=== PATIENT | female | born 2000 | race Caucasian/White ===

== ENCOUNTER 2025-01-12 17:51 | Day surgery (SDC) | payer OTHER, SELFPAY ==
[2025-01-12 17:53] VITALS: BP 149/99; PULSE 88; RESP 18; TEMP 36.7; O2SAT 98; BMI 22.0
--- NOTE | 2025-01-12 19:32 | US_ITS ---
PROCEDURE: TRANSVAGINAL W/PREG US 01/12/2025 REASON FOR EXAM: PELVIC PAIN TECHNIQUE: Transvaginal pelvic ultrasound Transvaginal FINDINGS: Measurements: Uterus: 7.2 x 5.7 x 3.5 with a volume of mL Endometrial Thickness: 14 mm Right Ovary: 2.5 x 1.7 x 1.5 with a volume of mL. Left Ovary: 2.5 x 1.8 x 1.8 with a volume of mL. . Uterus: Anteverted. Normal contour and myometrial echotexture. Endometrium: Normal echotexture. Right ovary: Normal size and echotexture. Left ovary: Normal size and echotexture. 1 cm isoechoic area within the left ovary of uncertain significance. Other adnexal findings: None. Cul-de-sac: Moderate amount of free fluid with some internal echoes No tenderness. Number of Gestational Sacs: None Gestational Sac Shape: Normal Number of Fetuses: None US/Transvaginal w/Preg US IMPRESSION: No intrauterine gestational sac. Differential diagnosis includes an early intr auterine , early ectopic , or a missed . Moderate amount of free fluid with some internal echoes and hemorrhagic or puru lent fluid can not be excluded. Dr. Wolfe was notified on 01/12/2025 at 21:00 Reading Location: [id number]
[2025-01-12 20:00] LABS: Absolute Lymphocyte Count 2.66 X10^3/uL (0.83-4.51); Absolute Neutrophil Count 5.8 X10^3/uL (2.0-7.7); Basophil# 0.07 X10^3/uL; Basophil% 0.8 % (0-1); Eosinophil# 0.09 X10^3/uL; Hematocrit 37.7 % (37-47); Hemoglobin 13.5 g/dL (12.0-15.0); Lymphocyte # 2.66 X10^3/ul (0.83-4.51); Lymphocyte % 28.5 % (19-41); Mean Corp Hgb Conc 35.8 g/dL (32-36); Mean Corpuscular Volume 86.5 fL (81-99); Mean Platelet Vol. 9.3 fl (6.2-12.0); Monocyte# 0.71 X10^3/uL; Monocyte% 7.6 % (0-10); NRBC Flagged by Analyzer 0 % (0-5); Neutrophil # 5.75 X10^3/uL (2.7-7.7); Neutrophil % 61.7 % (47-70); Platelet Count 242 K/mm3 (150-450); RBC Distribution Width CV 13.2 % (11.6-14.6); RBC Distribution Width SD 41.7 fl (35.1-43.9); Red Blood Count 4.36 M/mm3 (4.2-5.4); White Blood Count 9.3 K/mm3 (4.4-11.0)
[2025-01-12] MEDS: 0.9% Normal Saline (1000mL) 1,000 ML 999 ML IV (20:02)
[2025-01-12 20:10] VITALS: BP 124/85; PULSE 101; RESP 18; O2SAT 100
[2025-01-12 20:18] LABS: Bacteria 0 SEEN /hpf (None Seen); Mucous, Urine 0 SEEN /hpf (<or=2+); White Blood Cells 0 SEEN /hpf (0-5)
--- NOTE | 2025-01-12 20:23 | ED.VIS.FEGU ---
HPI HPI - Female History of Present Illness Chief Complaint: Vag Bld, Preg Pain Pain: Positive for Pelvic Pain Onset: Days Context: Gradual Onset Timing: Continuous Quality: Positive for Cramping Location: RLQ, LLQ and Suprapubic Worsened by: - (Eating) Relieved by: - (Nothing) Bleeding Issue: Positive for Vaginal bleeding Context: Gradual Onset Timing: Continuous Current Severity: Mild Maximum Severity: Mild Associated Symptoms Associated Symptoms: Negative for Dysuria or Frequency Test: Positive P: 0 Narrative Narrative: Patient presents with vaginal bleeding that began at couple days ago. Patient states that his been less than a normal period for her. Patient states she had a positive test but has not followed up with any MEDICAL SOCIAL CONSULTANT yet. Patient states this is her first . Patient states she has lower abdominal cramping. Patient states this is worse with eating. The patient states nothing seems to help with it. Patient admits to some nausea but denies any vomiting. Patient denies any dysuria or frequency. PFSH PFSH Medical History no medical history no medical history Allergy/AdvReac Type Severity Reaction Status Date / Time No Known Allergies Allergy Verified 01/12/25 17:56 Surgical History no surgical history no surgical history Social History Smoking Status: Never smoker ROS ROS ED Constitutional Constitutional ED: Denies chills or fever(s) Eyes Eyes: Denies blurry vision or change in vision ENT ENT ED: Denies rhinorrhea or sore throat Cardiovascular Cardiovascular: Denies chest pain or palpitations Respiratory/Chest Respiratory/Chest: Denies cough or dyspnea Gastrointestinal Gastrointestinal: Reports abdominal pain and nausea; Denies vomiting Genitourinary Genitourinary ED: Denies dysuria or hematuria Musculoskeletal Musculoskeletal: Denies back pain or neck pain Integumentary Denies abscess or rash Neurologic Neurologic: Denies headache(s) or weakness Allergic/Immunologic Allergic/Immunologic ED: Denies mouth swelling or urticaria EXAM Physical Exam Const Vital Signs: 01/12/25 17:53 01/12/25 20:10 01/12/25 22:00 Temperature 98.0 F Temperature Source Oral Pulse Rate 88 101 H 97 Respiratory Rate 18 18 18 Blood Pressure 149/99 H 124/85 H 124/85 H Blood Pressure Mean 115 98 98 Pulse Ox 98 100 100 Oxygen Delivery Method Room Air Room Air Room Air Positive well nourished and well developed General Appearance ED: well developed and NAD HEENT Reports moist mucous membranes Neck supple and no JVD Resp normal respiratory effort and clear to auscultation bilaterally Cardio regular rate and regular rhythm GI soft to palpation and non-distended Palpation: tender LLQ, RLQ and suprapubic; Negative for guarding Neuro oriented x3, CN's II-XII intact bilaterally and no sensory deficits noted Sensorium / Orientation: alert Motor Exam: strength 5/5 throughout Psych mental status grossly normal MDM MDM MDM Narrative Medical decision making narrative: Differential diagnose includes ectopic , threatened miscarriage, incomplete miscarriage, and implantation bleeding. CBC will be obtained to assess for leukocytosis and anemia. Basic metabolic profile will be obtained to assess for electrolyte abnormality and renal function. Quantitative hCG will be obtained to assess for level. Urinalysis will be obtained to assess for urinary tract infection or hematuria. Blood type will be obtained to assess for blood type and Rh. Lab Data Attestation: I reviewed the patient's lab results. Lab results narrative: CBC was reviewed and was within normal limits. Basic metabolic profile was reviewed and was within normal limits. Quantitative hCG was reviewed and was 12/05/2002. Urinalysis was reviewed. There is no evidence of urinary tract infection or hematuria. Blood type was reviewed and was O+. Labs: Laboratory Results - last 24 hr 01/12/25 01/12/25 19:15 20:05 WBC 9.3 RBC 4.36 Hgb 13.5 Hct 37.7 MCV 86.5 MCH 31.0 MCHC 35.8 RDW Std Deviation 41.7 RDW Coeff of Meghna 13.2 Plt Count 242 MPV 9.3 Immature Gran % (Auto) 0.400 Neut % (Auto) 61.7 Lymph % (Auto) 28.5 [place] % (Auto) 7.6 Eos % (Auto) 1.0 Baso % (Auto) 0.8 Absolute Neuts (auto) 5.8 Absolute Lymphs (auto) 2.66 Nucleated RBC % 0 Sodium 136 Potassium 3.4 Chloride 102 Carbon Dioxide 21.3 Anion Gap 13 BUN 9 Creatinine 0.72 Estim Creat Clear Calc 98.81 Est GFR (MDRD) Non-Af 118 BUN/Creatinine Ratio 12.6 Glucose 90 Calcium 9.1 HCG, Quant 3703 H Urine Color Straw Urine Clarity Clear Urine pH 6.5 Ur Specific [place] 1.010 Urine Protein 15 H Urine Glucose (UA) Normal Urine Ketones 50 H Urine Occult Blood 250 H Urine Nitrite Negative Urine Bilirubin Negative Urine Urobilinogen Normal Ur Leukocyte Esterase Negative Urine RBC 0-5 SEEN Urine WBC 0 SEEN Ur Squamous Epith Cells 0-5 SEEN Urine Bacteria 0 SEEN Urine Mucus 0 SEEN Blood Type O POSITIVE Radiography Diagnostic Testing: Clinical Impression(s) from Imaging Studies Obstetrics Ultrasound 01/12/25 19:32 IMPRESSION: No intrauterine gestational sac. Differential diagnosis includes an early intrauterine , early ectopic , or a missed . Moderate amount of free fluid with some internal echoes and hemorrhagic or purulent fluid can not be excluded. Dr. Wolfe was notified on 01/12/2025 at 21:00 Reading Location: [facility] Pelvic ultrasound was obtained. There is no intrauterine gestational sac. There is moderate amount of free fluid with some internal echoes. Hemorrhagic or purulent fluid cannot be excluded. This was interpreted by the radiologist and was also independently reviewed by myself. Treatment and Re-Evaluation Narrative: Patient was given IV fluids. Patient was advised of her findings. Case was discussed with Dr. Page Roberto. She was in to evaluate the patient. She will take the patient to the operating room for ectopic . Patient understands and is agreeable with the plan. All questions were answered. Discharge Plan Triage Chief Complaint: Vag Bld, Preg ED Provider: Ray Rapp Dx/Rx/DC Orders Clinical Impression: Ectopic , Pelvic pain Primary Care Provider: Care Physician,No Primary Disposition Disposition: Acute Care Hospital [facility]
[2025-01-12 20:29] LABS: Anion Gap 13 (5-15); BUN 9 mg/dL (4-19); BUN/Creat Ratio 12.6 RATIO (10-20); Calcium,Total 9.1 mg/dL (7.6-11.0); Carbon Dioxide 21.3 mmol/L (21.0-32.0); Chloride 102 mmol/L (98-108); Creatinine, Serum 0.72 mg/dL (0.70-1.20); EST Glomerular Filtration Rate 118 (>60); Estimated Creatinine Clearance 98.81 ml/min (50-250); Glucose 90 mg/dL (70-99); Potassium 3.4 mmol/L (3.3-5.1); Sodium Level 136 mmol/L (133-145)
[2025-01-12 20:31] LABS: hCG Titer Quant., Serum 3703 mIU/mL (<9 non-preg)
[2025-01-12 20:49] LABS: Color, Urine Straw (Yellow); Glucose, Dipstick Normal (Normal); Ketone-Dipstick 50 mg/dl (Negative); Leukocyte Esterase-Dipstick Negative /ul (Negative); Nitrite-Dipstick Negative (Negative); Occult Blood-Urine 250 /ul (Negative); Protein-Dipstick 15 mg/dl (Negative); Urine Bilirubin Dipstick Negative (Negative); Urine Clarity Clear (Clear); Urine Urobilinogen Normal (Normal); Urine pH 6.5 (5.0 - 8.0)
[2025-01-12 21:16] LABS: Red Blood Cells-Urine 0-5 SEEN /hpf (0-5); Squamous Epithelial Cells - UA 0-5 SEEN /hpf (5-10)
[2025-01-12 22:00] VITALS: BP 124/85; PULSE 97; RESP 18; O2SAT 100
[2025-01-12 22:56] VITALS: BP 127/85; PULSE 110; RESP 18; TEMP 37.1; O2SAT 98; BMI 22.0
[2025-01-12 23:01] VITALS: BP 127/85; PULSE 110; RESP 18; TEMP 37.1; O2SAT 100
--- NOTE | 2025-01-12 23:14 | PCM.HP.OB ---
HPI - General HPI Narrative YESSICA SOLORZANO, is a 24 F who presents with vaginal bleeding for two weeks,nothing heavy but persistent. she then had new onset acute pelvic pain today, statred on the left and then caused burning across the whole lower abdomen. she is supposed to be 8 weeks along, quant of 3700 with no IUP seen, moerate amount of complex fluid in the cul de sac. she denies any passage of tissue. she has no history of pelvic infection. PFSH PFSH Medical History no medical history Allergy/AdvReac Type Severity Reaction Status Date / Time No Known Allergies Allergy Verified 01/12/25 17:56 Surgical History no surgical history Social History Smoking Status: Never smoker ROS Constitutional Constitutional: Reports systems reviewed and no addt'l complaints, except as documented; Denies as per HPI, change in weight, fatigue, fever(s), malaise, weakness or other Eyes Eyes: Reports systems reviewed and no addt'l complaints, except as documented; Denies as per HPI, change in vision or other ENT HEENT: Reports systems reviewed and no addt'l complaints, except as documented Respiratory/Chest Respiratory/Chest: Reports systems reviewed and no addt'l complaints, except as documented Gastrointestinal Gastrointestinal: Reports systems reviewed and no addt'l complaints, except as documented and as per HPI Genitourinary Genitourinary: Reports as per HPI Musculoskeletal Musculoskeletal: Reports systems reviewed and no addt'l complaints, except as documented Neurologic Neurologic: Reports systems reviewed and no addt'l complaints, except as documented Psychiatric Psychiatric: Reports systems reviewed and no addt'l complaints, except as documented Endocrine Endocrinology: Reports systems reviewed and no addt'l complaints, except as documented Hematologic/Lymphatic Hematologic/Lymphatic: Reports systems reviewed and no addt'l complaints, except as documented Vital Signs Vital Signs Vital Signs: 01/12/25 17:53 01/12/25 20:10 01/12/25 22:00 Temperature 98.0 F Temperature Source Oral Pulse Rate 88 101 H 97 Respiratory Rate 18 18 18 Blood Pressure 149/99 H 124/85 H 124/85 H Blood Pressure Mean 115 98 98 Blood Pressure Source Blood Pressure Position Blood Pressure Location Pulse Ox 98 100 100 Oxygen Delivery Method Room Air Room Air Room Air 01/12/25 22:56 01/12/25 23:01 Temperature 98.7 F 98.7 F Temperature Source Oral Pulse Rate 110 H 110 H Respiratory Rate 18 18 Blood Pressure 127/85 H 127/85 H Blood Pressure Mean 99 99 Blood Pressure Source Monitor Blood Pressure Position Semi-Fowlers Blood Pressure Location Right Arm Pulse Ox 98 100 Oxygen Delivery Method Room Air Weight Weight: 124 lb 8.979 oz Body Mass Index (BMI) 22.0 Physical Exam Const alert, oriented x3 and no apparent distress HEENT normocephalic Head and Scalp: atraumatic Eyes EOMs intact bilaterally and conjunctivae normal Neck full ROM, no lymphadenopathy, supple and thyroid normal General: trachea midline Lymph Lymphatic: no lymphadenopathy noted Resp normal respiratory effort, no retractions, no use of accessory muscles and clear to auscultation bilaterally Cardio regular rhythm GI normal to inspection, nondistended, normoactive bowel sounds, soft to palpation, non-distended and no masses Inspection: Negative for abdominal distention Back/Spine no CVA tenderness Extremity normal to inspection Skin no rashes or lesions noted Neuro moves all extremities and deep tendon reflexes 2+ bilaterally Psych mental status grossly normal Labs Labs Labs: Blood Type O POSITIVE Hct 37.7 % (37-47) Hgb 13.5 g/dL (12.0-15.0) Obstetrics Ultrasound Assessment & Plan (1) Ectopic : (2) Pelvic pain: PLAN: Plan recommend proceeding with laparoscopic evaluation for teramtent of ectopic possible salpingectomy After discussing the patient's diagnosis and treatment plan options, patient wishes to proceed with surgical management. I have discussed with the patient the risks, benefits, and alternatives of the procedure which include but are not limited to risks of anesthesia, bleeding, infection, possible damage to bowel, bladder, or surrounding vasculature which could lead to additional surgery to evaluate any complications. Patient agrees to procedure and wishes to proceed. ACOG/uptodate references given for additional information regarding procedure.
[2025-01-12] MEDS: Bupivacaine 0.25% 30 ML Vial (23:16)
--- NOTE | 2025-01-12 23:20 | PCM.OPRPT ---
Problems Associated Problem List Diagnoses (1) Ectopic : Procedures Urinary/Genital [id number]: 93504 Treat ectopic lapro w/ salpingectomy Operative Report (Standard) Operative Information Date of Procedure: 01/12/25 Pre-Operative Diagnosis: see problem list Post-Operative Diagnosis: same ruptured left ectopic Surgery/Procedure Performed: laparoscopic left salpingectomy intelligence operations: Yes Intermediate Accountant: Gloria Shrestha Tasks completed by wheelchair van operator first responder: Opening & closing, Altering tissue and Insert Trochanter Additional tax assistant?: No Type of Anesthesia: General RN Documented Start/Stop Times: Operation Date: 01/13/25 00:00 Case Time Anesthesia Start 01/12/25 23:46 Into Room 01/12/25 23:46 Procedure Start 01/13/25 00:10 Procedure Start Time: 00:10 Procedure Stop Time: 12:36 Select all DRAINS/GRAFTS/IMPLANTS that apply: None Estimated Blood Loss: 50 Specimen collected: Yes Description of specimen(s) removed: ectopic, tube Description of surgery: Patient was taken in the operating room and was placed under general anesthesia was prepped and draped in normal sterile fashion in the dorsal lithotomy position. Bladder was drained of clear urine and SCDs were on preoperatively. Uterus was sounded and a uterine manipulator was placed after dilating. Attention was then paid to the abdominal portion of the procedure and the umbilicus was elevated with towel clamps and injected with Marcaine and after a 5 mm incision was made and the Veress needle was entered into the abdomen confirmed to be intra-abdominal with a low opening pressure of less than 5 mmHg. Abdomen was insufflated with CO2 gas and a 5 mm optical trocar was placed under direct visualization. A left lower quadrant 5 mm port and a 5 mm port suprapubically were placed under direct visualization. Uterus was well visualized and upon inspection of the pelvis and ectopic was seen in the left fallopian tube. Using a LigaSure device the mesosalpinx was transected and the fallopian tube removed including the ectopic and removed through the LLQ port site that was 5mm and was large enough to allow passage of a laparoscopic bag. Excellent hemostasis was noted in the pelvis. no other gross abnormalities were seen in the abdomen. All instruments removed from the abdomen after gas was desufflated. Port sites were closed with 3-0 Monocryl Steri's and op sites were applied. All instruments removed from the vagina and patient was awoken and taken recovery in stable condition. Surgical Findings: left ectopic Complications Complications: No
--- NOTE | 2025-01-12 23:21 | PCM.DC ---
Discharge Instructions Diet Discharge Diet: No restrictions DC O2, CPAP, BIPAP needs Home O2 Discharge instructions: No Dressing / Incision Discharge Activity: Return to Normal Activity, May Not Drive ( while taking narcotic pain meds, when pain free), May Shower and May Take a Tub Bath (in 7 days) May resume sexual activity in: 1 week Weight Bearing Status: Full weight bearing Dressing / Incision Call your doctor if your incision/area has: Continuous Slow Oozing, Sudden Increased Bleeding, Increased Pain/ Swelling, Increased Redness and Foul Smelling Discharge Call your doctor if you observe: Fever of 101 or Higher, Using more than 1 pad per hour, Shortness of breath, Chest pain and Uncontrolled pain Suture Line Care: Avoid Pulling/Pushing and Avoid Pinching/Bending Remove Dressing in: 1 week (if present) Cleanse incision/area with: Soap & Water and Keep Dressing Clean & Dry Follow Up Care When: Call to make an appointment with your doctor for a fu/incision check in 1-2 weeks. Test Results: Test results from this visit will be discussed in further detail at your follow-up appointment, if applicable. Discharge Plan Admission Attending Provider: Page Roberto Primary Care Provider: Care Physician,No Primary Instructions Print Language: New Zealander Discharge Orders/Prescriptions Prescriptions: New oxycodone-acetaminophen [Percocet] 5-325 mg tablet 1 tab PO Q4H PRN (Reason: pain) 7 Days Qty: 20 0RF Referrals / Follow Up: Care Physician,No Primary [Primary Care Provider] - Disposition Disposition (needs filled in before D/C Order can be placed): Home, Self Care
[2025-01-12 23:44] VITALS: BP 127/85; PULSE 110; RESP 18; TEMP 37.1; O2SAT 100
--- NOTE | 2025-01-12 23:44 | PRE.ANES_ITS ---
ASA Classification* ASA Classification ASA Classification: 2 and E Assessment & Plan Anesthesia* Anesthesia Assessment Anesthesia Assessment: Discussed sedation and/or anesthesia options, risks, benefits, and alternatives with patient/parents/legal guardian/POA. Questions invited. The patient/parents/legal guardian/POA seems to understand and agrees to proceed with anesthesia plan. Reviewed the physical assessment, medical history, allergy history and patient home medications list prior to surgery/procedure/anesthetic and documented any changes. Performed airway and anesthesia risk assessments. Anesthesia Type Anesthesia Type: General Anesthesia Focused Assessment* Temperature: 98.7 F Pulse Rate: 110 Blood Pressure: 127/85 Respiratory Rate: 18 Pulse Ox: 100 Airway Assessment Mouth opens: >3 cm Mallampati Score: II Focused Labs Anesthesia Preop lab: CBC WBC 9.3 K/mm3 (4.4-11.0) 01/12/25 19:15 01/12/25 RBC 4.36 M/mm3 (4.2-5.4) 01/12/25 19:15 01/12/25 Hgb 13.5 g/dL (12.0-15.0) 01/12/25 19:15 01/12/25 Hct 37.7 % (37-47) 01/12/25 19:15 01/12/25 Plt Count 242 K/mm3 (150-450) 01/12/25 19:15 01/12/25 CHEMISTRY Potassium 3.4 mmol/L (3.3-5.1) 01/12/25 19:15 01/12/25 Sodium 136 mmol/L (133-145) 01/12/25 19:15 01/12/25 BUN 9 mg/dL (4-19) 01/12/25 19:15 01/12/25 Creatinine 0.72 mg/dL (0.70-1.20) 01/12/25 19:15 01/12/25 Glucose 90 mg/dL (70-99) 01/12/25 19:15 01/12/25 COAG HCG, Quant 3703 mIU/mL (<9 non-preg) H 01/12/25 19:15 Pre-Assessment Diagnosis/Proposed Procedure Planned Operative Procedure(s): Exploratory laparoscopy, remove ectopic Anesthesia History 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 When Was Last Pacemaker Check QUESTION #4 FULL TEXT: You/Your Family Experience fever (hyperthermia) with Anesthesia Last Oral Intake Last Oral intake: Last Oral Intake NPO since 22:18 01/12/25 22:56 Meds taken in AM with sips of water? Meds patient instructed to take am of surgery PONV PONV - song and dance performer: PONV - song and dance performer Female HX of Motion Sickness HX of N/V After Surgery Non-Smoker Duration of Surgery greater than 60 minutes Number of Risk Factors PONV Score Height & Weight Height & Weight: Anesthesia: Height & Weight Height 5 ft 3 in 01/12/25 22:56 Weight: 56.5 kg 01/12/25 22:56 Body Mass Index (BMI) 22.0 01/12/25 22:56 Respiratory Assessment Respiratory Assessment - song and dance performer: Respiratory Tract Infection Hx - song and dance performer Hx Respiratory Tract Infection No 01/12/25 22:56 STOP Sleep Apnea STOP Sleep Apnea - song and dance performer: STOP Sleep Apnea - song and dance performer Hx Hypertension No 01/12/25 22:56 Hx Sleep Apnea No 01/12/25 22:56 CPAP BIPAP Do you snore loudly (louder No 01/12/25 22:56 than talking or can be heard Do you often feel tired/ No 01/12/25 22:56 fatigued/ sleepy during daytime? Has anyone observed you stop No 01/12/25 22:56 breathing during sleep? STOP Results Negative 01/12/25 22:56 QUESTION #5 FULL TEXT : Do you snore loudly (louder than talking or can be heard through closed doors)? Tobacco Use History Tobacco Use History - song and dance performer: Tobacco Use History - song and dance performer Tobacco Use Smoking Status Never smoker 01/12/25 20:07 Hx Tobacco Use Years Smoking Packs Smoked per Day Smoking Cessation Date was within the last 15 years Hx Smoking Cessation Date Hx Smoking Cessation Counseling Hematologic Medial History Hematologic Hx - song and dance performer: Hematologic Medical Hx - senior contracts manager Hx of Blood Transfusion Hx of Transfusion in last 3 Months Date of Last Transfusion (if within last 3 months) Ever experience any problems with transfusion(s)? Specify any problems Hx of Preganancy in last 3 Months Nurse Filling Out Transfusion & Questions: Date: Time: Patient unable to answer at this time (ie. confused, unrespo /Reproduction History /Reproductive History - song and dance performer: /Reproductive Hx- song and dance performer Hx Now No 01/12/25 22:56 Gestational Age (in weeks): EDC: Hx 1 01/12/25 20:07 Hx Para Hx Section SAB No 01/12/25 22:56 PFSH Medical History no medical history Home Medications ?Medication ?Instructions ?Recorded ?Last Taken ?Type oxycodone-acetaminophen 5 mg-325 1 tab PO Q4H PRN pain 7 days #20 01/12/25 Unknown Rx mg tablet (Percocet) tabs Allergy/AdvReac Type Severity Reaction Status Date / Time No Known Allergies Allergy Verified 01/12/25 17:56 Surgical History no surgical history Social History Smoking Status: Never smoker Review of Systems (Anesthesia) ROS Narrative System reviewed and no additional complaints, except as documented.
[2025-01-13] VITALS (7 sets, daily range): BP systolic 119–127; BP diastolic 83–88; PULSE 82–114; RESP 16; TEMP 36.6–37.2; O2SAT 100
--- NOTE | 2025-01-13 | FAL_PTH ---
PATIENT: YESSICA SOLORZANO [place] [facility] [id number] AGE/SX: 24/F ROOM: RE01/12/[address]: Dr. Page Roberto MD : 2000 BED: DIS: 01/13/2025 SPEC #: [id number] RECD: 01/13/25 11:37 STATUS: RAJWINDER REKulwinder #: [id number] MAL: 01/13/25 00:[address]: Page Roberto DEPT: SURGICAL PATHOLOGY RECD BY: Curly Berger ENTERED: 01/13/25 11:37 SP TYPE: ECTOPIC OTHR DR: Carmen Primary Care Phys Tissues: A - ECTOPIC PREG Procedures: Surgery Specimen Level IV HEADER OPERATION: Laparoscopic, removal ectopic, left salpingectomy PRE-OP DIAGNOSIS: Ectopic , pelvic pain TISSUE SUBMITTED: A- Left fallopian tube MICROSCOPIC DIAGNOSIS A. Left fallopian tube, ectopic , excision: * Luminal chorionic villi, decidua and blood clot, consistent with intratubal (ectopic) products of conception. MICROSCOPIC DESCRIPTION Slides are reviewed. GROSS DESCRIPTION A. Received in formalin in a container labeled with the patient's name, date of , and left: Fallopian tube is an intact and dilated fimbriated fallopian tube measuring 8 cm in length by up to 1.7 cm in diameter. The serosa is purple-shannon, smooth, with an unremarkable fimbriated end. Serial sections reveal an abundance of red blood clot material within the entire length of the tube. The dilated portion exhibits pink and feathery possible chorionic villi. No parts are discovered. 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 [facility] 01/16/2025 CPT:[id number]
--- NOTE | 2025-01-13 00:53 | PCM.POST.ANE ---
Anesthesia: Postop Eval I Current Vital Signs Temperature: 97.8 F Pulse Rate: 114 Blood Pressure: 127/88 Respiratory Rate: 16 Pulse Ox: 100 Assessment Airway patent: Yes Spontaneous unlabored respirations: Yes Mental status: Awake nausea: No Vomiting: No Anesthesia Complication: No Fluid Hydration Crystalloid volume administer (ml): 1,000 Total IV fluid infused: 1,000 Progress Note Anesthesia document: Postop Eval 1 completed: Yes
--- NOTE | 2025-01-13 00:55 | PCM.POSTANE2 ---
Anesthesia Postop Eval I Sum Postop Eval Completion status Anesthesia document: Postop Eval 1 completed: Yes Anesthesia Postop Eval I Summary Anesthesia Postop Eval I Summary: Anesthesia Postop Eval I: Assessment Summary Airway patent Yes 01/13/25 00:54 Spontaneous unlabored Yes 01/13/25 00:54 respirations Mental status Awake 01/13/25 00:54 nausea No 01/13/25 00:54 Vomiting No 01/13/25 00:54 Anesthesia Postop Eval I: Fluid Summary Crystalloid volume administer 1,000 01/13/25 00:54 (ml) Colloids volume administered ( ml) Blood Product volume administered (ml) Total IV fluid infused 1,000 01/13/25 00:54 Anesthesia Postop Eval I: Summary Notes Anesthesia Complication No 01/13/25 00:54 Anesthesia Complication Comment: Post-operative progress note Anesthesia: Postop Eval II Evaluation Mental status: Awake Pain Level: 1 nausea: No Vomiting: No
== END 2025-01-13 02:00 | disposition home or self-care (01) ==
LOC: ED 19:56 → SDC 22:43
PROVIDERS: Emergency Provider Emergency Medicine; Visit Provider Obstetrics & Gynecology
PROC: 10T24ZZ Resection of Products of Conception, Ectopic, Percutaneous Endoscopic Approach (ICD-10-PCS; CPT 59150; principal; 2025-01-12 23:45)
DX: O00.90 Unspecified ectopic pregnancy without intrauterine pregnancy (principal)
CPT/HCPCS: 59151; 76817; 80048; 81001; 84702; 85025; 86900; 86901; 88305; 99284; A4216; J2405

== ENCOUNTER → 2025-06-09 | Outpatient (CLI) | payer OTHER, SELFPAY ==
[2025-06-09 20:19] LABS: hCG Titer Quant., Serum 273 mIU/mL (<9 non-preg)
== END | disposition home or self-care (01) ==
PROVIDERS: Referring Provider Obstetrics & Gynecology; Visit Provider Obstetrics & Gynecology
DX: Z34.90 Encounter for supervision of normal pregnancy, unspecified, unspecified trimester (principal)
CPT/HCPCS: 84702

== ENCOUNTER → 2025-06-11 | Outpatient (CLI) | payer OTHER, SELFPAY | END | disposition home or self-care (01) | LOC: LABSPEC 19:05 | PROVIDERS: Visit Provider Obstetrics & Gynecology | DX: Z00.00 Encounter for general adult medical examination without abnormal findings (principal) ==

== ENCOUNTER → 2025-06-11 | Outpatient (CLI) | payer OTHER, SELFPAY ==
[2025-06-11 20:50] LABS: hCG Titer Quant., Serum 618 mIU/mL (<9 non-preg)
== END | disposition home or self-care (01) ==
LOC: LAB 18:55
PROVIDERS: Visit Provider Obstetrics & Gynecology
DX: Z34.90 Encounter for supervision of normal pregnancy, unspecified, unspecified trimester (principal)
CPT/HCPCS: 36415; 84702

== ENCOUNTER 2025-06-13 17:25 | Emergency (ER) | payer MEDICAID, SELFPAY ==
[2025-06-13 17:26] VITALS: BP 163/104; PULSE 143; RESP 18; TEMP 36.8; O2SAT 98; BMI 22.0
--- NOTE | 2025-06-13 17:26 | EDS_ITS ---
HPI History of Present Illness Chief Complaint: Abd Pain PFSH PFSH Allergy/AdvReac Type Severity Reaction Status Date / Time No Known Allergies Allergy Verified 06/13/25 17:25 Surgical History History of unilateral salpingectomy Social History (Updated 06/13/25 @ 18:09 by Slime Gill) housing: house number of children: 0 current occupational status: employed current occupation: [employer] Smoking Status: Never smoker seatbelt use: always do you feel safe at home: Yes additional social history: [place] EXAM Physical Exam Const Vital Signs: 06/13/25 17:26 06/13/25 18:50 06/13/25 21:09 Temperature 98.3 F 97.8 F Temperature Source Oral Pulse Rate 143 H 95 95 Respiratory Rate 18 16 Blood Pressure 163/104 H 112/60 Blood Pressure Mean 123 77 Pulse Ox 98 100 Oxygen Delivery Method Room Air MDM MDM MDM Narrative Medical decision making narrative: HISTORY OF PRESENT ILLNESS: Chief complaint: Abdominal pain 24year-old female history of ectopic presents right lower quadrant abdominal pain. States she is 5 weeks . Notes acute onset of right lower belly pain. Notes pain is less severe than recent ectopic. Notes she is a . Denies vaginal bleeding. Denies vomiting. Denies diarrhea. Says her appendix and gallbladder. Denies urinary complaints REVIEW OF SYSTEMS: Pertinent positives: Abdominal pain Pertinent negatives: As per HPI PHYSICAL EXAM: Nursing triage notes reviewed, Vital signs reviewed Constitutional: please see mdm HENT: MMM Eyes: Pupils equal round and reactive to light, Extraocular muscles intact Neck: No stridor, no JVD, full neck ROM Lungs: Clear to auscultation, No wheezing or rales. No increased work of breathing, no conversational dyspnea, no accessory muscle use, no nasal flaring. No respiratory distress noted Heart: Regular rate and rhythm, No murmurs, No rubs and No gallops, 2+ distal pulses (radial, femoral, posterior tibial) in all extremities Abdomen: Soft, no peritoneal signs, no rigidity, rebound or guarding, no obvious peritoneal signs, no palpable pulsatile abdominal masses, no auscultated abdominal bruit : No CVAT Extremities: No edema Neuro: No new focal neurological deficits, cranial nerves II through XII intact, 5/5 strength in all present extremities. Intact sensation to light touch in all present extremities, 2+ reflexes bilateral patella tendons. Skin: No rash or lesions noted MEDICAL DECISION MAKING: Chief Complaint: please see HPI External records reviewed: Reviewed prior lab and imaging studies. Reviewed prior [facility] surgical report. Factors affecting care: History of ectopic , unilateral salpingectomy Social determinants of health: none History obtained from others: none Consults: OBGYN (Dr. Roberto) MDM Narrative: The patient was initially I considered the following differential diagnosis: Ectopic , miscarriage, pain in early I obtained a broad lab and imaging to further determine if the patient was suffering from a life-threatening etiology. Initially treated the patient's pain with Tylenol ALL IMAGES (IF OBTAINED) HAVE BEEN PERSONALLY REVIEWED AND INTERPRETED BY MYSELF. CBC without leukocytosis, severe anemia, no thrombocytopenia. BMP without significant electrolyte normalities, mild metabolic acidosis, no sign of endorgan hypoperfusion, no abnormalities liver function tests Lipase is wnl indicating no pancreatic inflammation. Quantitative hCG is essentially doubling every 2 days consistent with early Urinalysis shows no evidence of urinary inflammation suggestive of UTI Rh+ no need for RhoGAM Transvaginal ultrasound shows possible yolk sac but no pole or obvious adnexal mass. Discussed case with [facility]. Recommended discharge given reassuring ultrasound results and close outpatient follow-up. On reassessment patient's heart rate improved. The patient and/or family, caregivers express understanding. The patient and/or family, caregivers agrees with the plan. Shared decision making: I will have a discussion with the patient and or visitors regarding risk/benefits of further testing or admission. They will be made aware of of the risk/benefits inherent in this decision they will be given the opportunity to voice understanding. Total critical care time today provided was at least 0 minutes. This excludes separately billable procedures. Critical care time (if documented) is secondary to the patient having high probability of clinically significant/life threatening deterioration in the patient's condition which required my urgent intervention. Impression: 1. Abdominal pain early 2. First trimester 3. History of ectopic Dispo: discharge This note was generated with [employer] dictation software. It may contain incorrect words, spelling, and punctuation that were not noted in review of the chart prior to signing. Lab Data Attestation: I reviewed the patient's lab results. Labs: Laboratory Results - last 24 hr 09/13/25 09/13/25 17:47 17:57 WBC 9.4 RBC 4.28 Hgb 13.5 Hct 37.9 MCV 88.6 MCH 31.5 MCHC 35.6 RDW Std Deviation 37.4 RDW Coeff of Meghna 11.7 Plt Count 260 MPV 9.5 Immature Gran % (Auto) 0.200 Neut % (Auto) 58.8 Lymph % (Auto) 30.3 Price % (Auto) 8.4 Eos % (Auto) 1.4 Baso % (Auto) 0.9 Absolute Neuts (auto) 5.5 Absolute Lymphs (auto) 2.85 Nucleated RBC % 0 Sodium 136 Potassium 3.5 Chloride 103 Carbon Dioxide 20.0 L Anion Gap 13 BUN 16 Creatinine 0.75 Estim Creat Clear Calc 90.69 Est GFR (MDRD) Non-Af 114 BUN/Creatinine Ratio 21.0 H Glucose 94 Calcium 9.5 Total Bilirubin 0.60 AST 16 ALT 13 Alkaline Phosphatase 39 Total Protein 7.0 Albumin 4.6 Globulin 2.5 Albumin/Globulin Ratio 1.9 Lipase 48 HCG, Quant 1158 H Urine Color Straw Urine Clarity Clear Urine pH 6.0 Ur Specific [place] 1.010 Urine Protein 15 H Urine Glucose (UA) Normal Urine Ketones Negative Urine Occult Blood Negative Urine Nitrite Negative Urine Bilirubin Negative Urine Urobilinogen Normal Ur Leukocyte Esterase Negative Urine RBC 0-5 SEEN Urine WBC 0-5 SEEN Ur Squamous Epith Cells 0-5 SEEN Urine Bacteria 0 SEEN Urine Mucus 0 SEEN Blood Type O POSITIVE Radiography Diagnostic Testing: Clinical Impression(s) from Imaging Studies Obstetrics Ultrasound 06/13/25 17:30 IMPRESSION: Possible small intrauterine gestational sac corresponding to a gestational age of 5 weeks 1 day. A yolk sac but no pole could be identified at this moment. Findings are most likely due to early intrauterine gestation below the limits of sonographic detection. Differential diagnosis includes blighted ovum or pseudo sac of ectopic . The latter is considered less likely given the lack of adnexal mass. Short-term follow-up sonography and serial serum beta HCG levels is recommended. Reading Location: [facility] Discharge Plan Triage Chief Complaint: Abd Pain ED Provider: Ariel East Dx/Rx/DC Orders Instructions: ED Abdominal Pain, Early Primary Care Provider: Care Physician,No Primary Referrals: Page Roberto MD [Med Staff - Active Staff] - Activity Restrictions/Additional Instructions: Thank you for trusting us with your care today! Your ultrasound was reassuring. It showed evidence of a early . There is no definitive evidence of an ectopic or miscarriage. Please take Tylenol (2 pills, 650 mg) every 6 hours as needed for pain and fever control. Please return to the emergency department if your symptoms change or worsen. Specifically develop severe abdominal pain, you lose consciousness or develop vaginal bleeding, leakage of fluid or passage of any tissue. Please follow with your [facility] (Dr. Roberto) for further outpatient evaluation and management. She recommended you get a repeat ultrasound in 7 to 10 days. She recommended you call her office on Sunday to schedule this a ppointment. Print Language: French Disposition Disposition: Home, Self Care Discharge Date/Time: 06/13/25 21:21
--- NOTE | 2025-06-13 17:30 | US_ITS ---
PROCEDURE: TRANSVAGINAL W/PREG US 06/13/2025 REASON FOR EXAM: ABDOMINAL PAIN, EARLY RULE OUT ECTOPIC TECHNIQUE: Procedure Code: [id number] Modality: US Procedure: TRANSVAGINAL W/PREG US COMPARISON: 01/09/2025 FINDINGS The uterus measures 8.0 x 5.5 x 4.0 cm. A possible early gestational sac is identified within the uterus. The mean sac diameter measures 0.4 cm and would correspond to a gestational age of 5 weeks 1 day. However, a yolk sac but no pole could be identified at this moment. The right ovary measures 5.0 x 5.3 x 3.8 cm and the left ovary measures 3.2 x 1.4 x 1.7 cm. Septated right ovarian cyst measures 4.1 x 4.3 x 3.6 cm. No adnexal masses are seen. There is a minimal amount of free fluid in the cul-de-sac. US/Transvaginal w/Preg US IMPRESSION: Possible small intrauterine gestational sac corresponding to a gestational age of 5 weeks 1 day. A yolk sac but no pole could be identified at this moment. Findings are most likely due to early intra uterine gestation below the limits of sonographic detection. Differential diagnosis includes blighted ovum or pseudo sac of ecto pic . The latter is considered less likely given the lack of adnexal mass. Short-term follow-up sonography and ser ial serum beta HCG levels is recommended. Reading Location[facility]
[2025-06-13] MEDS: 0.9% Normal Saline (1000mL) 1,000 ML 999 ML IV (17:50)
[2025-06-13 18:03] LABS: Mucous, Urine 0 SEEN /hpf (<or=2+)
[2025-06-13 18:07] LABS: Hematocrit 37.9 % (37-47); Hemoglobin 13.5 g/dL (12.0-15.0); Immature Granulocytes Count 0.020 X10^3/uL (0.0-0.0); Mean Corp Hgb Conc 35.6 g/dL (32-36); Mean Corpuscular Volume 88.6 fL (81-99); Mean Platelet Vol. 9.5 fl (6.2-12.0); NRBC Flagged by Analyzer 0 % (0-5); Platelet Count 260 K/mm3 (150-450); RBC Distribution Width CV 11.7 % (11.6-14.6); RBC Distribution Width SD 37.4 fl (35.1-43.9); Red Blood Count 4.28 M/mm3 (4.2-5.4); White Blood Count 9.4 K/mm3 (4.4-11.0)
[2025-06-13 18:24] LABS: Color, Urine Straw (Yellow); Glucose, Dipstick Normal (Normal); Ketone-Dipstick Negative (Negative); Leukocyte Esterase-Dipstick Negative /ul (Negative); Nitrite-Dipstick Negative (Negative); Occult Blood-Urine Negative /ul (Negative); Protein-Dipstick 15 mg/dl (Negative); Specific Gravity, Urine 1.010 (1.002-1.030); Urine Bilirubin Dipstick Negative (Negative)
--- OUTSIDE RECORDS SUMMARY | 2025-06-13 18:38 | XMS RPT_ITS | CCD ---
Author Organization [facility] Care Team Providers Care Director Of Oncology Name Role Phone Dr. Ray Rapp DO Emergency Provider Care Physician, No Primary Primary Care Provider Unavailable Pardeep BECKER, Dr. Abel Attending Provider Pardeep BECKER, Dr. Abel Other Provider [phone] Unavailable Primary Care Provider Unavailabl e Page Roberto Attending Unavailable Care Physician, No Primary Primary Care Unava ilable Pardeep, Page Attending Unavailable Page Roberto Referring Unavailable Care Physician, No Primary Primary Care Unava ilable Care Physician, No Primary Referring Unava ilable Page Roberto Attending Unavailable Care Physician, No Primary Primary Care Unava ilable Page Roberto Attending Unavailable Page Roberto Consulting Unavailable Care Physician, No Primary Primary Care Unava ilable Page Roberto Attending Unavailable Care Physician, No Primary Primary Care Unava ilable Page Roberto Attending Unavailable Care Physician, No Primary Primary Care Unava ilable Medications Current Medications Medication Drug Class(es) Dates Sig (Normalized) Sig (Original) acetaminophen 325 mg / oxyCODONE hydrochloride 5 mg oral tablet (2 sources) Opioid Agonist Start: 01-12-2025 take 1 tablet by mouth every four hours as needed for pain Oxycodone-Acetami nophen (Percocet) 5-325 mg tablet Active 1 {tbl} PO Q4H as needed for pain 19 04January 12, 2025 Problems Active Problems Problem Classification Problem Date Documented Da te Episodic/Chronic Hemorrhage during ; abruptio placenta; placenta previa (1 source) Bleeding from female genital tract during ; Translations: [Hemorrhage in early , unspecified] 01-12-2025 Episodic Other and delivery including normal (1 source) Encounter for supervision of normal , unspecified, unspecified trimester; Translations: [Encounter for supervision of normal , unspecified, unspecified trimester] Onset: 06-11-2025 Episodic Past or Other Problems Problem Classification Problem Date Documented Da te Episodic/Chronic Abdominal pain (5 sources) Pain in pelvis; Translations: [Pelvic and perineal pain] Onset: 01-27-2025 01-12-2025 Episodic Ectopic (6 sources) Ectopic ; Translations: [Unspecified ectopic without intrauterine ] Onset: 01-27-2025 01-12-2025 Episodic Results Test Name Value Interpretation Reference Range Facility HH, Hemoglobin AND Hematocri ton 06-11-2025 Hematocrit (Bld) [Volume fraction] 36.3 % Low 37-47 [facility] Comment on above: Result Comment: MORELIA Arshad ORDER, REG PREV. CROSSED OVER ORDER Performed By: #### L 100.0600 #### [facility] [address] [facility] [place], [place], [phone] (328) Hemoglobin (Bld) [Mass/Vol] 13.0 g/dL Normal 12.0-15.0 [facility] Comment on above: Result Comment: MORELIA Arshad ORDER, REG PREV. CROSSED OVER ORDER Performed By: #### L 100.0600 #### [facility] [address] [facility] [place], [place], [phone] hCG Titer Quant., Serumon HCG QUANT. 618 mIU/mL High <9 non-preg [facility] Comment on above: Result Comment: Gest ational Age 0.2-1 Week: 5-50 mIU/mL 1-2 Weeks: 50-500 mIU/mL 2-3 Weeks: 100-5000 mIU/mL 3-4 Weeks: 500-10,000 mIU/mL 4-5 Weeks:1000-50,000 mIU/mL 5-6 Weeks: 10,000-100,000 mIU/mL 6-8 Weeks: 15,000-200,000 mIU/mL 2-3 Months:10,000-100,000 mIU/mL Performed By: #### L 700.8000 #### [facility] [address] [place], [place], [phone] hCG Titer Quant., Serumon HCG QUANT. 273 mIU/mL High <9 non-preg [facility] Comment on above: Result Comment: Gest ational Age 0.2-1 Week: 5-50 mIU/mL 1-2 Weeks: 50-500 mIU/mL 2-3 Weeks: 100-5000 mIU/mL 3-4 Weeks: 500-10,000 mIU/mL 4-5 Weeks:1000-50,000 mIU/mL 5-6 Weeks: 10,000-100,000 mIU/mL 6-8 Weeks: 15,000-200,000 mIU/mL 2-3 Months:10,000-100,000 mIU/mL Performed By: #### L 700.8000 #### [facility] [address] [place], [address] Blood Donor Recruiter Supervisor Office Visit Reporton 01-28-2025 Blood Donor Recruiter Supervisor Office Visit Report [facility] [address], [address] [place] [address] OFFICE VISIT Date of Service: 01/28/25 MR#: [id number] Acct: [id number] Name: YESSICA SOLORZANO Yomaira Rep #: [id number] : 2000 Provider: Dr. Page murray MD Age/Sex: 24/F [place] [facility] [place]: Signed Intake Vital Signs 01/12/25 22:56 01/28/25 12:59 Height 5 ft 3 in 5 ft 3 in Weight: 124 lb 6 oz BMI 22.0 BP 142/88 H Intake Visit Reasons: 2wk post op Manager Field Required: No Is patient in pain?: No Allergies No Known Allergies Allergy (Verified 01/28/25 13:00) Post menopausal: No Patient : No : No PFSH Surgical History (Updated 01/13/25 @ 08:33 by Leslie Pinon) History of unilateral salpingectomy Social History (Updated 01/28/25 @ 13:02 by Cherri Kumar) number of children: 0 current occupational status: employed current occupation: [employer] Smoking Status: Never smoker seatbelt use: always do you feel safe at home: Yes additional social history: Evert HPI 2wk post op Details: YESSICA SOLORZANO is a 24 year old who presents for postop visit doing well good recovery History 1 Elective abortions Hx Para 0 Spontaneous abortions Hx # Term Pregnancies Ectopic pregnancies 1 Hx # Pregnancies Multiple births # of living children Past Pregnancies Del. Date Name GA/Weeks Outcome Route Bth Weight Gen Labor Lgth Anesthesia Del Locatn Provider FOB 01/12/25 ectopic ROS Const Constitutional: Reports system reviewed and no additional complaints, except as documented GI GI: Denies abdominal pain, cramping, nausea or vomiting : Denies pelvic pain, urinary frequency, urinary incontinence, urinary urgency, vaginal discharge, vaginal dryness or vaginal odor Exam Const General: cooperative, healthy appearing, comfortable and no acute distress GI Inspection: normal to inspection Palpation: soft and nontender Other: Incisions: C/D/I Coding Level of Care Code No Charge Diagnoses S/P laparoscopic surgery Z98.890 Assessment and Plan Assessment and Plan (1) S/P laparoscopic surgery: Status: Acute Comment: left salpingectomy Medications: Discontinued oxycodone-acetamino phen 5-325 mg (Percocet) Discontinued Reason: Pt no longer taking 1 TAB PO Q4H 7 days PRN 20 tabs 0RF pain O00.90 - Unspecified ectopic without intrauterine Plan discussed follow up fore new ob, plan visit at 7-8 weeks new ob and consider serial hcgs 01/28/25 1345 Date Page Roberto MD Cosigner Signature: Date (if applicable) CC: Normal [facility] MR/POSTOP.Lupe 01-13-2025 MR/POSTOP.[facility] Medical Records Department [address] [place] [address] Anesthesia Postop Eval I 01/13/25 0053 MR#: [id number] Acct: [id number] Name: YESSICA SOLORZANO Rep #: [id number] : 2000 From: Ravinder Garcia MD PCP: Care Physician,No Primary Status:REG SDC Y Race: C [place] [facility] [place]esthesia: Postop Eval I Current Vital Signs Temperature: 97.8 F Pulse Rate: 114 Blood Pressure: 127/88 Respiratory Rate: 16 Pulse Ox: 100 Assessment Airway patent: Yes Spontaneous unlabored respirations: Yes Mental status: Awake nausea: No Vomiting: No Anesthesia Complication: No Fluid Hydration Crystalloid volume administer (ml): 1,000 Total IV fluid infused: 1,000 Progress Note Anesthesia document: Postop Eval 1 completed: Yes 01/13/2553 Date Ravinder Garcia MD Cosigner Signature: Date CC: Signed Normal [facility] MR/[id number] 01-13-2025 [facility] Medical Records Department [address] [place] [address] Anesthesia Postop Eval II 01/13/2554 MR#: [id number] Acct: [id number] Name: YESSICA SOLORZANO Rep #: [id number] : 2000 From: Ravinder Garcia MD PCP: Care Physician,No Primary Status:REG SD Y Race: C [place] [facility] [place] Anesthesia Postop Eval I Sum Postop Eval Completion status Anesthesia document: Postop Eval 1 completed: Yes Anesthesia Postop Eval I Summary Anesthesia Postop Eval I Summary: Anesthesia Postop Eval I: Assessment Summary Airway patent Yes 01/13/25 00:54 Spontaneous unlabored Yes 01/13/25 00:54 respirations Mental status Awake 01/13/25 00:54 nausea No 01/13/25 00:54 Vomiting No 01/13/25 00:54 Anesthesia Postop Eval I: Fluid Summary Crystalloid volume administer 1,000 01/13/25 00:54 (ml) Colloids volume administered ( ml) Blood Product volume administered (ml) Total IV fluid infused 1,000 01/13/25 00:54 Anesthesia Postop Eval I: Summary Notes Anesthesia Complication No 01/13/25 00:54 Anesthesia Complication Comment: Post-operative progress note Anesthesia: Postop Eval II Evaluation Mental status: Awake Pain Level: 1 nausea: No Vomiting: No 01/13/25 0055 Date Ravinder Vivas Signature: Date CC: Signed Normal [facility] Surgery Specimen Level [place] 01-13-2025 Surgery Specimen Level IV ----- Patient Age/Sex Location Account Attending Physician YESSICA SOLORZANO 24/ [facility] [place] [id number] Dr. Page Roberto MD Specimen: [id number] Received: 01/13/25 Status: RAJWINDER Lawson Num: [id number] Spec Type: ECTOPIC Subm Dr: Dr. Page Roberto MD HEADER OPERATION: Laparoscopic, removal ectopic, left salpingectomy PRE-OP DIAGNOSIS: Ectopic , pelvic pain TISSUE SUBMITTED: A- Left fallopian tube MICROSCOPIC DIAGNOSIS A. Left fallopian tube, ectopic , excision: * Luminal chorionic villi, decidua and blood clot, consistent with intratubal (ectopic) products of conception. MICROSCOPIC DESCRIPTION Slides are reviewed. GROSS DESCRIPTION A. Received in formalin in a container labeled with the patient's name, date of , and left: Fallopian tube is an intact and dilated fimbriated fallopian tube measuring 8 cm in length by up to 1.7 cm in diameter. The serosa is purple-shannon, smooth, with an unremarkable fimbriated end. Serial sections reveal an abundance of red blood clot material within the entire length of the tube. The dilated portion exhibits pink and feathery possible chorionic villi. No parts are discovered. Counter Sales Person sections are submitted in A1-3 (fimbriated end in A3). [facility] 01/16/2025 CPT:54605 Patient Age/Sex Location Account Attending Physician YESSICA SOLORZANO / [facility] [place] [id number] Dr. Page Roberto MD Signed (signatur e on file) Dr. Sirena Mosqueda MD 01/16/25 1726 Normal [facility] Comment on above: Performed By: #### L 700.8000 #### [facility] [place], [address] [facility] Blood Type, Patienton 01-12-2025 ABO and Rh group Nom (Bld) Blood group O Rh(D) positive Normal [facility] Comment on above: Performed By: #### L 100.0100, BtABORH, L700.8000, L500.2500, B882-1 #### [facility] [address] [place], [address] Absolute neutrophil countOrd ered By: Ray Rapp on 01-12-2025 Neutrophils (Bld) [#/Vol] 5.8 10*3/uL 2.0-7.7 [facility] Anion gap in Serum or Plasma Ordered By: Ray Rapp on 01-12-2025 Anion gap [Moles/Vol] 13 mmol/L 5-15 [facility] Automated blood erythrocyte countOrdered By: Ray Rapp on 01-12-2025 RBC (Bld) [#/Vol] 4.36 10*6/uL Normal 4.2-5.4 [facility] Comment on above: Performed By: #### L 100.0100, BtABORH, L700.8000, L500.2500, B882-1 #### [facility] [address] [place], [address] Automated blood hematocrit ( percentage)Ordered By: Ray Rapp on 01-12-2025 Hematocrit (Bld) [Volume fraction] 37.7 % Normal 37-47 [facility] Comment on above: Performed By: #### L 100.0100, BtABORH, L700.8000, L500.2500, B882-1 #### [facility] [address] [place], [address] Automated lymphocyte count a s percentage of total leukocytesOrdered By: Ray Rapp on 01-12-2025 Lymphocytes/100 WBC (Bld) 28.5 % Normal 19-41 [facility] Comment on above: Performed By: #### L 100.0100, BtABORH, L700.8000, L500.2500, B882-1 #### [facility] [address] [place], [address] [id number] 01-12-2025 ABO and Rh group Nom (Bld) TNP Normal [facility] Comment on above: Performed By: #### L 100.0100, BtABORH, L700.8000, L500.2500, B882-1 #### [facility] [address] [place], [address] BUN/creatinine ratioOrdered By: Ray Rapp on 01-12-2025 Urea nitrogen/Creatinine [Mass ratio] 12.6 mg/mg 07-20 [facility] Basic Metabolic Profile (BMP )on 01-12-2025 BUN/CRE 12.6 RATIO Normal 07-20 [facility] Comment on above: Performed By: #### L 100.0100, BtABORH, L700.8000, L500.2500, B882-1 #### [facility] [address] [place], [address] Calcium [Mass/Vol] 9.1 mg/dL Normal 7.6-11.0 [facility] Comment on above: Performed By: #### L 100.0100, BtABORH, L700.8000, L500.2500, B882-1 #### [facility] [address] [place], [address] Chloride [Moles/Vol] 102 mmol/L Normal 98-108 [facility] Comment on above: Performed By: #### L 100.0100, BtABORH, L700.8000, L500.2500, B882-1 #### [facility] [address] [place], [address] CO2 [Moles/Vol] 21.3 mmol/L Normal 21.0-32.0 [facility] Comment on above: Performed By: #### L 100.0100, BtABORH, L700.8000, L500.2500, B882-1 #### [facility] [address] [place], [address] Creatinine [Mass/Vol] 0.72 mg/dL Normal 0.70-1.20 [facility] Comment on above: Performed By: #### L 100.0100, BtABORH, L700.8000, L500.2500, B882-1 #### [facility] [address] [place], [address] ECRCL 98.81 ml/min Normal 50-250 [facility] Comment on above: Performed By: #### L 100.0100, BtABORH, L700.8000, L500.2500, B882-1 #### [facility] [address] [place], [address] GAP 13 Normal 5-15 [facility] Comment on above: Performed By: #### L 100.0100, BtABORH, L700.8000, L500.2500, B882-1 #### [facility] [address] [place], [address] GFR/1.73 sq M.predicted among non-blacks MDRD (S/P/Bld) [Vol rate/Area] 118 mL/min/{1.73_m2} Normal >60 [facility] Comment on above: Result Comment: mL/m in/1.73m2 CKD-EPI Creatinine Equation (2020) Performed By: #### L 100.0100, BtABORH, L700.8000, L500.2500, B882-1 #### [facility] [address] [place], [address] Glucose [Mass/Vol] 90 mg/dL Normal 70-99 [facility] Comment on above: Performed By: #### L 100.0100, BtABORH, L700.8000, L500.2500, B882-1 #### [facility] [address] [place], [address] Potassium [Moles/Vol] 3.4 mmol/L Normal 3.3-5.1 [facility] Comment on above: Performed By: #### L 100.0100, BtABORH, L700.8000, L500.2500, B882-1 #### [facility] [address] [place], [address] Sodium [Moles/Vol] 136 mmol/L Normal 133-145 [facility] Comment on above: Performed By: #### L 100.0100, BtABORH, L700.8000, L500.2500, B882-1 #### [facility] [address] [place], [address] Urea nitrogen [Mass/Vol] 9 mg/dL Normal 4-19 [facility] Comment on above: Performed By: #### L 100.0100, BtABORH, L700.8000, L500.2500, B882-1 #### [facility] [address] [place], [address] Basophil percentageOrdered B y: Ray Rapp on 01-12-2025 Basophils/100 WBC (Bld) 0.8 % Normal 0-1 [facility] Comment on above: Performed By: #### L 100.0100, BtABORH, L700.8000, L500.2500, B882-1 #### [facility] [address] [place], [address] Bilirubin Test strip Ql (U)O rdered By: Ray Rapp on 01-12-2025 Bilirubin Ql (U) Negative Negative [facility] CBC W/Diff, Automatedon 12-30 Absolute Lymph 2.66 X10 3/uL Normal 0.83-4.51 [facility] Comment on above: Performed By: #### L 100.0100, BtABORH, L700.8000, L500.2500, B882-1 #### [facility] [address] [place], [address] Absolute Neut 5.8 X10 3/uL Normal 2.0-7.7 [facility] Comment on above: Performed By: #### L 100.0100, BtABORH, L700.8000, L500.2500, B882-1 #### [facility] [address] [place], [address] IG% 0.400 Normal 0.0-0.9 [facility] Comment on above: Result Comment: IG% - Immature Granulocytes (promyelocytes, myelocytes and metamyelocytes) > 1% indicates that a LEFT SHIFT is Present. Performed By: #### L 100.0100, BtABORH, L700.8000, L500.2500, B882-1 #### [facility] [address] [place], [address] Nucleated RBC (Bld) [#/Vol] 0 10*3/uL Normal 0-5 [facility] Comment on above: Performed By: #### L 100.0100, BtABORH, L700.8000, L500.2500, B882-1 #### [facility] [address] [place], [address] RDW SD 41.7 fl Normal 35.1-43.9 [facility] Comment on above: Performed By: #### L 100.0100, BtABORH, L700.8000, L500.2500, B882-1 #### [facility] [address] [place], [address] CNOVon 01-12-2025 CNOV Office Visit (UCTR) ---- YESSICA SOLORZANO ([id number]) 2000 F Date Time Provider Department 01/12/25 5:00 PM NETTE MILLER [facility] During your visit today, we recorded the following information about you: Nette Miller APRN.CNP 01/12/2025 5:16 PM Signed Called to [...] Date: 01/12/2025 (None) Encounter Status:Closed by NETTE MILLER on 01/12/25 Normal [facility] Carbon dioxide, total [Moles /volume] in Central venous bloodOrdered By: Ray Rapp on 01-12-2025 CO2 [Moles/Vol] 21.3 mmol/L 21.0-32.0 [facility] Chloride assayOrdered By: Richardson Rapp on 01-12-2025 Chloride [Moles/Vol] 102 mmol/L 98-108 [facility] Discharge Instructionon 12-30 Discharge Instruction [facility] Medical Records Department [address] [place] [address] Instructions for Home/Discharge Instructions 01/12/25 2321 MR#: [id number] Acct: [id number] Name: YESSICA SOLORZANO Rep #: [id number] : 2000 24 From: Page Roberto MD PCP: Care Physician,No Primary Status:REG SDC Discharge Instructions Diet Discharge Diet: No restrictions DC O2, CPAP, BIPAP needs Home O2 Discharge instructions: No Dressing / Incision Discharge Activity: Return to Normal Activity, May Not Drive ( while taking narcotic pain meds, when pain free), May Shower and May Take a Tub Bath (in 7 days) May resume sexual activity in: 1 week Weight Bearing Status: Full weight bearing Dressing / Incision Call your doctor if your incision/area has: Continuous Slow Oozing, Sudden Increased Bleeding, Increased Pain/ Swelling, Increased Redness and Foul Smelling Discharge Call your doctor if you observe: Fever of 101 or Higher, Using more than 1 pad per hour, Shortness of breath, Chest pain and Uncontrolled pain Suture Line Care: Avoid Pulling/Pushing and Avoid Pinching/Bending Remove Dressing in: 1 week (if present) Cleanse incision/area with: Soap Water and Keep Dressing Clean Dry Follow Up Care When: Call to make an appointment with your doctor for a fu/incision check in 1-2 weeks. Test Results: Test results from this visit will be discussed in further detail at your follow-up appointment, if applicable. Discharge Plan Admission Attending Provider: Page oRberto Primary Care Provider: Care Physician,No Primary Instructions Print Language: [place] Discharge Orders/Prescription s Prescriptions: New oxycodone-acetamino phen [Percocet] 5-325 mg tablet 1 tab PO Q4H PRN (Reason: pain) 7 Days Qty: 20 0RF Referrals / Follow Up: Care Physician,No Primary [Primary Care Provider] - Disposition Disposition (needs filled in before D/C Order can be placed): Home, Self Care 01/13/25 0036 Page Roberto MD CC: No Primary Care Physician Signed Normal [facility] Emergency Department Summary on 01-12-2025 Emergency Department Summary [facility] Medical Records Department [address] [place] [address] Emergency Department Summary 01/12/25 MR#: [id number] Acct: [id number] Name: YESSICA SOLORZANO Rep #: [id number] : 2000 24 From: Ray Rapp DO PCP: Care Physician,No Primary Status:[facility] [place] [facility] [place] HPI HPI - Female History of Present Illness Chief Complaint: Vag Bld, Preg Pain Pain: Positive for Pelvic Pain Onset: Days Context: Gradual Onset Timing: Continuous Quality: Positive for Cramping Location: RLQ, LLQ and Suprapubic Worsened by: - (Eating) Relieved by: - (Nothing) Bleeding Issue: Positive for Vaginal bleeding Context: Gradual Onset Timing: Continuous Current Severity: Mild Maximum Severity: Mild Associated Symptoms Associated Symptoms: Negative for Dysuria or Frequency Test: Positive P: 0 Narrative Narrative: Patient presents with vaginal bleeding that began at couple days ago. Patient states that his been less than a normal period for her. Patient states she had a positive test but has not followed up with any HEALTH CARE TECHNICIAN yet. Patient states this is her first . Patient states she has lower abdominal cramping. Patient states this is worse with eating. The patient states nothing seems to help with it. Patient admits to some nausea but denies any vomiting. Patient denies any dysuria or frequency. PFSH PFSH Medical History no medical history no medical history Allergy/AdvReac Type Severity Reaction Status Date / Time No Known Allergies Allergy Verified 01/12/25 17:56 Surgical History no surgical history no surgical history Social History Smoking Status: Never smoker ROS ROS ED Constitutional Constitutional ED: Denies chills or fever(s) Eyes Eyes: Denies blurry vision or change in vision ENT ENT ED: Denies rhinorrhea or sore throat Cardiovascular Cardiovascular: Denies chest pain or palpitations Respiratory/Chest Respiratory/Chest: Denies cough or dyspnea Gastrointestinal Gastrointestinal: Reports abdominal pain and nausea; Denies vomiting Genitourinary Genitourinary ED: Denies dysuria or hematuria Musculoskeletal Musculoskeletal: Denies back pain or neck pain Integumentary Denies abscess or rash Neurologic Neurologic: Denies headache(s) or weakness Allergic/Immunologi c Allergic/Immunologi c ED: Denies mouth swelling or urticaria EXAM Physical Exam Const Vital Signs: 01/12/25 17:53 01/12/25 20:10 01/12/25 22:00 Temperature 98.0 F Temperature Source Oral Pulse Rate 88 101 H 97 Respiratory Rate 18 18 18 Blood Pressure 149/99 H 124/85 H 124/85 H Blood Pressure Mean 115 98 98 Pulse Ox 98 100 100 Oxygen Delivery Method Room Air Room Air Room Air Positive well nourished and well developed General Appearance ED: well developed and NAD HEENT Reports moist mucous membranes Neck supple and no JVD Resp normal respiratory effort and clear to auscultation bilaterally Cardio regular rate and regular rhythm GI soft to palpation and non-distended Palpation: tender LLQ, RLQ and suprapubic; Negative for guarding Neuro oriented x3, CN's II-XII intact bilaterally and no sensory deficits noted Sensorium / Orientation: alert Motor Exam: strength 5/5 throughout Psych mental status grossly normal MDM MDM MDM Narrative Medical decision making narrative: Differential diagnose includes ectopic , threatened miscarriage, incomplete miscarriage, and implantation bleeding. CBC will be obtained to assess for leukocytosis and anemia. Basic metabolic profile will be obtained to assess for electrolyte abnormality and renal function. Quantitative hCG will be obtained to assess for level. Urinalysis will be obtained to assess for urinary tract infection or hematuria. Blood type will be obtained to assess for blood type and Rh. Lab Data Attestation: I reviewed the patient's lab results. Lab results narrative: CBC was reviewed and was within normal limits. Basic metabolic profile was reviewed and was within normal limits. Quantitative hCG was reviewed and was 12/05/2002. Urinalysis was reviewed. There is no evidence of urinary tract infection or hematuria. Blood type was reviewed and was O+. Labs: Laboratory Results - last 24 hr 01/12/25 01/12/25 19:15 20:05 WBC 9.3 RBC 4.36 Hgb 13.5 Hct 37.7 MCV 86.5 MCH 31.0 MCHC 35.8 RDW Std Deviation 41.7 RDW Coeff of Meghna 13.2 Plt Count 242 MPV 9.3 Immature Gran % (Auto) 0.400 Neut % (Auto) 61.7 Lymph % (Auto) 28.5 [place] % (Auto) 7.6 Eos % (Auto) 1.0 Baso % (Auto) 0.8 Absolute Neuts (auto) 5.8 Absolute Lymphs (auto) 2.66 Nucleated RBC % 0 Sodium 136 (more content not included)... Normal [facility] Eosinophil percentageOrdered By: Ray Rapp on 01-12-2025 Eosinophils/100 WBC (Bld) 1.0 % Normal 0-5 [facility] Comment on above: Performed By: #### L 100.0100, BtABORH, L700.8000, L500.2500, B882-1 #### [facility] [address] [place], [address] Epithelial cells.squamous LM Ql (Urine sed)Ordered By: Ray Rapp on 01-12-2025 Epithelial cells.squamous LM.HPF (Urine sed) [#/Area] 0 /[HPF] 5-10 [facility] Erythrocyte distribution wid th (RBC) [Ratio]Ordered By: Ray Rapp on 01-12-2025 Erythrocyte distribution width (RBC) [Entitic vol] 41.7 fL 35.1-43.9 [facility] Erythrocyte distribution wid th ratioOrdered By: Ray Rapp on 01-12-2025 Erythrocyte distribution width (RBC) [Ratio] 13.2 % Normal 11.6-14.6 [facility] Comment on above: Performed By: #### L 100.0100, BtABORH, L700.8000, L500.2500, B882-1 #### [facility] [address] [place], [address] Estimation of creatinine vita aranceOrdered By: Ray Rapp on 01-12-2025 Estimated Creatinine Clearance Calc 98.81 ml/min 50-250 [facility] GFR/1.73 sq M.predicted elvis g non-blacks MDRD (S/P/Bld) [Vol rate/Area]Ordered By: Ray Rapp on 01-12-2025 Estimated GFR (MDRD) Non-Af Amer 118 >60 [facility] Comment on above: mL/min/1.73m2 CKD-EP I Creatinine Equation (2020) Glucose Ql (U)Ordered By: Richardson Rapp on 01-12-2025 Urine Glucose (UA) Normal mg/dl Normal [facility] H AND P Exam - OB/GYNon 12-30 H&P Exam - HEALTH CARE TECHNICIAN [facility] Medical Records Department [address] [place] [address] H P Exam - HEALTH CARE TECHNICIAN 01/12/25 2314 MR#: [id number] Acct: [id number] Name: YESSICA SOLORZANO Rep #: [id number] : 2000 From: Page Roberto MD PCP: Care Physician,No Primary Status:REG [facility] [place] Location: [facility] [place] HPI - General HPI Narrative YESSICA SOLORZANO, is a 24 F who presents with vaginal bleeding for two weeks,nothing heavy but persistent. she then had new onset acute pelvic pain today, statred on the left and then caused burning across the whole lower abdomen. she is supposed to be 8 weeks along, quant of 3700 with no IUP seen, moerate amount of complex fluid in the cul de sac. she denies any passage of tissue. she has no history of pelvic infection. PFSH PFSH Medical History no medical history Allergy/AdvReac Type Severity Reaction Status Date / Time No Known Allergies Allergy Verified 01/12/25 17:56 Surgical History no surgical history Social History Smoking Status: Never smoker ROS Constitutional Constitutional: Reports systems reviewed and no addt'l complaints, except as documented; Denies as per HPI, change in weight, fatigue, fever(s), malaise, weakness or other Eyes Eyes: Reports systems reviewed and no addt'l complaints, except as documented; Denies as per HPI, change in vision or other ENT HEENT: Reports systems reviewed and no addt'l complaints, except as documented Respiratory/Chest Respiratory/Chest: Reports systems reviewed and no addt'l complaints, except as documented Gastrointestinal Gastrointestinal: Reports systems reviewed and no addt'l complaints, except as documented and as per HPI Genitourinary Genitourinary: Reports as per HPI Musculoskeletal Musculoskeletal: Reports systems reviewed and no addt'l complaints, except as documented Neurologic Neurologic: Reports systems reviewed and no addt'l complaints, except as documented Psychiatric Psychiatric: Reports systems reviewed and no addt'l complaints, except as documented Endocrine Endocrinology: Reports systems reviewed and no addt'l complaints, except as documented Hematologic/Lymphat ic Hematologic/Lymphat ic: Reports systems reviewed and no addt'l complaints, except as documented Vital Signs Vital Signs Vital Signs: 01/12/25 17:53 01/12/25 20:10 01/12/25 22:00 Temperature 98.0 F Temperature Source Oral Pulse Rate 88 101 H 97 Respiratory Rate 18 18 18 Blood Pressure 149/99 H 124/85 H 124/85 H Blood Pressure Mean 115 98 98 Blood Pressure Source Blood Pressure Position Blood Pressure Location Pulse Ox 98 100 100 Oxygen Delivery Method Room Air Room Air Room Air 01/12/25 22:56 01/12/25 23:01 Temperature 98.7 F 98.7 F Temperature Source Oral Pulse Rate 110 H 110 H Respiratory Rate 18 18 Blood Pressure 127/85 H 127/85 H Blood Pressure Mean 99 99 Blood Pressure Source Monitor Blood Pressure Position Semi-Fowlers Blood Pressure Location Right Arm Pulse Ox 98 100 Oxygen Delivery Method Room Air Weight Weight: 124 lb 8.979 oz Body Mass Index (BMI) 22.0 Physical Exam Const alert, oriented x3 and no apparent distress HEENT normocephalic Head and Scalp: atraumatic Eyes EOMs intact bilaterally and conjunctivae normal Neck full ROM, no lymphadenopathy, supple and thyroid normal General: trachea midline Lymph Lymphatic: no lymphadenopathy noted Resp normal respiratory effort, no retractions, no use of accessory muscles and clear to auscultation bilaterally Cardio regular rhythm GI normal to inspection, nondistended, normoactive bowel sounds, soft to palpation, non-distended and no masses Inspection: Negative for abdominal distention Back/Spine no CVA tenderness Extremity normal to inspection Skin no rashes or lesions noted Neuro moves all extremities and deep tendon reflexes 2+ bilaterally Psych mental status grossly normal Labs Labs Labs: Blood Type O POSITIVE Hct 37.7 % (37-47) Hgb 13.5 g/dL (12.0-15.0) Obstetrics Ultrasound Assessment Plan (1) Ectopic : (2) Pelvic pain: PLAN: Plan recommend proceeding with laparoscopic evaluation for teramtent of ectopic possible salpingectomy After discussing the patient's diagnosis and treatment plan options, patient wishes to proceed with surgical management. I have discussed with the patient the risks, benefits, and alternatives of the procedure which include but are not limited to risks of anesthesia, bleeding, infection, possible damage to bowel, bladder, or surrounding vasculature which could lead to additional surgery to evaluate any complications. Patient agrees to procedure and wis (more content not included)... Normal [facility] HCG ( test) QlOrder ed By: Ray Rapp on 01-12-2025 Human Chorionic Gonadotropin, Quant 3703 mIU/mL High <9 [facility] Comment on above: Gestational Age0.2-1 Week: 5-50 mIU/mL1-2 Weeks: 50-500 mIU/mL2-3 Weeks: 100-5000 mIU/mL3-4 Weeks: 500-10,000 mIU/mL4-5 Weeks:1000-50,000 mIU/mL5-6 Weeks: 10,000-100,000 mIU/mL6-8 Weeks: 15,000-200,000 mIU/mL2-3 Months:10,000-100,000 mIU/mL Hemoglobin measurementOrdere d By: Ray Rapp on 01-12-2025 Hemoglobin (Bld) [Mass/Vol] 13.5 g/dL Normal 12.0-15.0 [facility] Comment on above: Performed By: #### L 100.0100, BtABORH, L700.8000, L500.2500, B882-1 #### [facility] [address] [place], [address] Immature granulocytes/100 WB C Auto (Bld)Ordered By: Ray Rapp on 01-12-2025 Immature granulocytes/100 WBC (Bld) 0.400 % 0.0-0.9 [facility] Comment on above: IG% - Immature Granu locytes (promyelocytes, myelocytes and metamyelocytes) > 1% indicates that a LEFT SHIFT is Present. Ketones Test strip Ql (U)Ord ered By: Ray Rapp on 01-12-2025 Ketones Ql (U) 50 mg/dl High Negative [facility] Lymphocytes Auto (Unsp spec) [#/Vol]Ordered By: Ray Rapp on 01-12-2025 Lymphocytes (Bld) [#/Vol] 2.66 10*3/uL 0.83-4.5 1 [facility] MCV (mean corpuscular volume ) determinationOrdered By: Ray Rapp on 01-12-2025 MCV (RBC) [Entitic vol] 86.5 fL Normal 81-99 [facility] Comment on above: Performed By: #### L 100.0100, BtABORH, L700.8000, L500.2500, B882-1 #### [facility] [address] [place], [address] Mean corpuscular hemoglobin (MCH) determinationOrdered By: Ray Rapp on 01-12-2025 MCH (RBC) [Entitic mass] 31.0 pg Normal 27.0-32.0 [facility] Comment on above: Performed By: #### L 100.0100, BtABORH, L700.8000, L500.2500, B882-1 #### [facility] [address] [place], [place], [id number] Mean corpuscular hemoglobin concentration (MCHC) determinationOrdered By: Ray Rapp on 01-12-2025 MCHC (RBC) [Mass/Vol] 35.8 g/dL Normal 32-36 [facility] Comment on above: Performed By: #### L 100.0100, BtABORH, L700.8000, L500.2500, B882-1 #### [facility] [address] [place], [place], [id number] Mean platelet volume determi nationOrdered By: Ray Rapp on 01-12-2025 Platelet mean volume (Bld) [Entitic vol] 9.3 fL Normal 6.2-12.0 [facility] Comment on above: Performed By: #### L 100.0100, BtABORH, L700.8000, L500.2500, B882-1 #### [facility] [address] [place], [place], [id number] Microscopic analysis of urin e for red blood cells (RBC)Ordered By: Ray Rapp on 01-12-2025 Urine RBC 0-5 SEEN /hpf 0-5 [facility] Monocyte percentageOrdered B y: Ray Rapp on 01-12-2025 Monocytes/100 WBC (Bld) 7.6 % Normal 0-10 [facility] Comment on above: Performed By: #### L 100.0100, BtABORH, L700.8000, L500.2500, B882-1 #### [facility] [address] [facility] [facility] [place], [place], [id number] Mucus LM Ql (Urine sed)Order ed By: Ray Rapp on 01-12-2025 Mucus Ql (Urine sed) 0 SEEN /hpf [facility] Neutrophil percentageOrdered By: Ray Rapp on 01-12-2025 Neutrophils/100 WBC (Bld) 61.7 % Normal 47-70 [facility] Comment on above: Performed By: #### L 100.0100, BtABORH, L700.8000, L500.2500, B882-1 #### [facility] [address] [place], [address] Nitrite Test strip Ql (U)Ord ered By: Ray Rapp on 01-12-2025 Nitrite Ql (U) Negative Negative [facility] Nucleated red blood cell per centageOrdered By: Ray Rapp on 01-12-2025 Nucleated RBC/100 WBC (Bld) [Ratio] 0 % 0-5 [facility] Operative Reporton 5 Operative Report [facility] Medical Records Department [address] [place] [address] Operative Report 01/12/25 2320 MR#: [id number] Acct: [id number] Name: YESSICA SOLORZANO Rep #: [id number] : 2000 From: Page Roberto MD PCP: Care Physician,No Primary Status:[facility] Location[place] [facility] [place] Problems Associated Problem List Diagnoses (1) Ectopic : Procedures Urinary/Genital 52xxx-59xxx: 61662 Treat ectopic lapro w/ salpingectomy Operative Report (Standard) Operative Information Date of Procedure: 01/12/25 Pre-Operative Diagnosis: see problem list Post-Operative Diagnosis: same ruptured left ectopic Surgery/Procedure Performed: laparoscopic left salpingectomy talent coordinator: Yes Account Services Coordinator: Gloria Shrestha Tasks completed by presser first: Opening closing, Altering tissue and Insert Trochanter Additional emergency veterinary assistant?: No Type of Anesthesia: General RN Documented Start/Stop Times: Operation Date: 01/13/25 00:00 Case Time Anesthesia Start 01/12/25 23:46 Into Room 01/12/25 23:46 Procedure Start 01/13/25 00:10 Procedure Start Time: 00:10 Procedure Stop Time: 12:36 Select all DRAINS/GRAFTS/IMPLA NTS that apply: None Estimated Blood Loss: 50 Specimen collected: Yes Description of specimen(s) removed: ectopic, tube Description of surgery: Patient was taken in the operating room and was placed under general anesthesia was prepped and draped in normal sterile fashion in the dorsal lithotomy position. Bladder was drained of clear urine and SCDs were on preoperatively. Uterus was sounded and a uterine manipulator was placed after dilating. Attention was then paid to the abdominal portion of the procedure and the umbilicus was elevated with towel clamps and injected with Marcaine and after a 5 mm incision was made and the Veress needle was entered into the abdomen confirmed to be intra-abdominal with a low opening pressure of less than 5 mmHg. Abdomen was insufflated with CO2 gas and a 5 mm optical trocar was placed under direct visualization. A left lower quadrant 5 mm port and a 5 mm port suprapubically were placed under direct visualization. Uterus was well visualized and upon inspection of the pelvis and ectopic was seen in the left fallopian tube. Using a LigaSure device the mesosalpinx was transected and the fallopian tube removed including the ectopic and removed through the LLQ port site that was 5mm and was large enough to allow passage of a laparoscopic bag. Excellent hemostasis was noted in the pelvis. no other gross abnormalities were seen in the abdomen. All instruments removed from the abdomen after gas was desufflated. Port sites were closed with 3-0 Monocryl Steri's and op sites were applied. All instruments removed from the vagina and patient was awoken and taken recovery in stable condition. Surgical Findings: left ectopic Complications Complications: No 01/13/25 0036 Cosigner Signature (if applicable): CC: Dr. Page Roberto MD; No Primary Care Physician Signed Normal [facility] Platelet countOrdered By: Richardson Rapp on 01-12-2025 Platelets (Bld) [#/Vol] 242 10*3/uL Normal 150-450 [facility] Comment on above: Performed By: #### L 100.0100, BtABORH, L700.8000, L500.2500, B882-1 #### [facility] [address] [facility] [place], [address] Potassium (Unsp spec) [Mass/ Vol]Ordered By: Ray Rapp on 01-12-2025 Potassium [Moles/Vol] 3.4 mmol/L 3.3-5.1 [facility] Protein Test strip Ql (U)Ord ered By: Ray Rapp on 01-12-2025 Protein Ql (U) 15 mg/dl High Negative [facility] Serum creatinine measurement (mass/volume)Ordered By: Ray Rapp on 01-12-2025 Creatinine [Mass/Vol] 0.72 mg/dL 0.70-1.20 [facility] Serum glucose measurement (m ass/volume)Ordered By: Ray Rapp on 01-12-2025 Glucose [Mass/Vol] 90 mg/dL 70-99 [facility] Serum or plasma calcium eliana urement (mass/volume)Ordered By: Ray Rapp on 01-12-2025 Calcium [Mass/Vol] 9.1 mg/dL 7.6-11.0 [facility] Serum or plasma urea nitroge n measurement (mass/volume)Ordered By: Ray Rapp on 01-12-2025 Urea nitrogen [Mass/Vol] 9 mg/dL 4-19 [facility] Sodium levelOrdered By: Ray Rapp on 01-12-2025 Sodium [Moles/Vol] 136 mmol/L 133-145 [facility] Transvaginal w/Preg USon Transvaginal w/Preg US [facility] [address] [place] [address] Transvaginal w/Preg US MR#: [id number] Acct: [id number] Name: YESSICA SOLORZANO Rep #: [id number] : 2000 F 24 From: Nelson Batista MD PCP: Care Physician,No Primary Status: REG ER Study: Transvaginal w/Preg US Date of Exam: 01/12/25 Exam# [id number] Ordering Dr: Ray Rapp DO PROCEDURE: TRANSVAGINAL W/PREG US 01/12/2025 REASON FOR EXAM: PELVIC PAIN TECHNIQUE: Transvaginal pelvic ultrasound Transvaginal FINDINGS: Measurements: Uterus: 7.2 x 5.7 x 3.5 with a volume of mL Endometrial Thickness: 14 mm Right Ovary: 2.5 x 1.7 x 1.5 with a volume of mL. Left Ovary: 2.5 x 1.8 x 1.8 with a volume of mL. . Uterus: Anteverted. Normal contour and myometrial echotexture. Endometrium: Normal echotexture. Right ovary: Normal size and echotexture. Left ovary: Normal size and echotexture. 1 cm isoechoic area within the left ovary of uncertain significance. Other adnexal findings: None. Cul-de-sac: Moderate amount of free fluid with some internal echoes No tenderness. Number of Gestational Sacs: None Gestational Sac Shape: Normal Number of Fetuses: None US/Transvaginal w/Preg US IMPRESSION: No intrauterine gestational sac. Differential diagnosis includes an early intrauterine , early ectopic , or a missed . Moderate amount of free fluid with some internal echoes and hemorrhagic or purulent fluid can not be excluded. Dr. Wolfe was notified on 01/12/2025 at 21:00 Reading Location: [id number] CC: Dr. Ray Rapp, DO; No Primary Care Physician [employer] Solutions Architect: Signed Normal [facility] Urinalysis, Completeon 01-12 EPI,SQUAMOUS 0-5 SEEN Normal 5-10 [facility] Comment on above: Order Comment: CLEAN CATCH Performed By: #### L 400.0001 #### [facility] [address] [place], [address] RBC 0-5 SEEN Normal 0-5 [facility] Comment on above: Order Comment: CLEAN CATCH Performed By: #### L 400.0001 #### [facility] [address] [place], [address] BACTERIA 0 SEEN Normal None Seen [facility] Comment on above: Order Comment: CLEAN CATCH Performed By: #### L 400.0001 #### [facility] [address] [place], [address] Mucus Ql (Urine sed) 0 SEEN Normal [facility] Comment on above: Order Comment: CLEAN CATCH Performed By: #### L 400.0001 #### [facility] [address] [place], [address] WBC 0 SEEN Normal 0-5 [facility] Comment on above: Order Comment: CLEAN CATCH Performed By: #### L 400.0001 #### [facility] [address] [place], [place], [id number] Urine blood detectionOrdered By: Ray Rapp on 01-12-2025 Urine Occult Blood 250 /ul High Negative [facility] Urine clarityOrdered By: Chelsey Rapp on 01-12-2025 Clarity (U) Clear Clear [facility] Urine color determinationOrd ered By: Ray Rapp on 01-12-2025 Color (U) Straw Yellow [facility] Urine leukocyte esterase det ection by dipstickOrdered By: Ray Rapp on 01-12-2025 Leukocyte esterase Test strip Ql (U) Negative Negative [facility] Urine pHOrdered By: Ray betancourt on 01-12-2025 pH (U) 6.5 [pH] 5.0 - 8.0 [facility] Urine sediment bacteria coun t by microscopy (number/high power field)Ordered By: Ray Rapp on 01-12-2025 Bacteria LM.HPF (Urine sed) [#/Area] 0 /[HPF] None Seen [facility] Urine specific gravity measu rementOrdered By: Ray Rapp on 01-12-2025 Specific gravity (U) [Rel density] 1.010 1.002-1.030 [facility] Urobilinogen Ql (U)Ordered B y: Ray Rapp on 01-12-2025 Urine Urobilinogen Normal mg/dl Normal [facility] White blood cell (WBC) count Ordered By: Ray Rapp on 01-12-2025 WBC (Bld) [#/Vol] 9.3 10*3/uL Normal 4.4-11.0 [facility] Comment on above: Performed By: #### L 100.0100, BtABORH, L700.8000, L500.2500, B882-1 #### [facility] [address] [place], [place], [id number] White blood cell countOrdere d By: Ray Rapp on 01-12-2025 Urine WBC 0 SEEN /hpf 0-5 [facility] hCG Titer Quant., Serumon 04 -14-2025 HCG QUANT. 3703 mIU/mL High <9 non-preg [facility] Comment on above: Result Comment: Gest ational Age 0.2-1 Week: 5-50 mIU/mL 1-2 Weeks: 50-500 mIU/mL 2-3 Weeks: 100-5000 mIU/mL 3-4 Weeks: 500-10,000 mIU/mL 4-5 Weeks:1000-50,000 mIU/mL 5-6 Weeks: 10,000-100,000 mIU/mL 6-8 Weeks: 15,000-200,000 mIU/mL 2-3 Months:10,000-100,000 mIU/mL Performed By: #### L 100.0100, BtABORH, L700.8000, L500.2500, B882-1 #### [facility] [address] [place], [address] Vital Signs Date Time Vital Sign Value Performing Clinician Faci lity 01-13-2025 01:55-0400 Body temperature 97.8 [degF] Dr. Ray Rapp DO Work Phone: [facility] 01-13-2025 01:55-0400 Diastolic blood pressure 84 mm[Hg] Dr. Ray Rapp DO Work Phone: [facility] 01-13-2025 01:55-0400 Heart rate 82 /min Dr. Ray Rapp DO Work Phone: [facility] 01-13-2025 01:55-0400 Respiratory rate 16 /min Dr. Ray Rapp DO Work Phone: [facility] 01-13-2025 01:55-0400 SaO2% (BldA) [Mass fraction] 100 % Dr. Ray Rapp DO Work Phone: [facility] 01-13-2025 01:55-0400 Systolic blood pressure 125 mm[Hg] Dr. Ray Rapp DO Work Phone: [facility] 01-12-2025 23:01-0400 Body temperature 98.7 [degF] Dr. Ray Rapp DO Work Phone: [facility] 01-12-2025 23:01-0400 Diastolic blood pressure 85 mm[Hg] Dr. Ray Rapp DO Work Phone: [facility] 01-12-2025 23:01-0400 Heart rate 110 /min Dr. Ray Rapp DO Work Phone: [facility] 01-12-2025 23:01-0400 Respiratory rate 18 /min Dr. Ray Rapp DO Work Phone: [facility] 01-12-2025 23:01-0400 SaO2% (BldA) [Mass fraction] 100 % Dr. Ray Rapp DO Work Phone: [facility] 01-12-2025 23:01-0400 Systolic blood pressure 127 mm[Hg] Dr. Ray Rapp DO Work Phone: [phone] [place] [address] 01-12-2025 22:56-0400 Body height 160.[address] Ray Rapp DO Work Phone: [phone] [place] [address] 01-12-2025 22:56-0400 Body mass index (BMI) [Ratio] 22 kg/m2 Dr. Ray Rapp DO Work Phone: [facility] 01-12-2025 22:56-0400 Body weight 56.[address] Ray Rapp DO Work Phone: [facility] Encounters Encounter Date Encounter Type Care Provider Facility Start: 06-11-2025 ambulatory Page Dubois lity:[facility] Start: 06-09-2025 ambulatory Page Dubois lity:[facility] Start: 01-28-2025 End: 01-28-2025 ambulatory No Primary Care Physician Facility:[facility] [place] Start: 01-12-2025 Non-patient / Non-visit Dr. Wilian Roberto MD -[facility] Start: 01-12-2025 End: 01-13-2025 Admission to same day surgery center Dr. Page Roberto MD -[facility] Start: 01-12-2025 End: 01-13-[address] 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 Comment on above: Vaginal bleeding in patient at less than 20 weeks gestation (HCC) (Primary Dx) Procedures Date Procedure Procedure Detail Performing Clinician Start: 01-13-2025 Removal of ectopic fetus Dr. Ray Rapp DO Work Phone: Start: 01-12-2025 Transvaginal obstetr ic ultrasonography Dr. Ray Rapp DO Work Phone: Plan of Treatment Date Care Activity Detail Author Start: 01-13-2025 Medical regimen orde rs management [facility] Start: 01-13-2025 Patient discharge [facility] Start: 01-12-2025 Hospital admission, emergency, from emergency room, medical nature [facility] Start: 06-01-2024 Covid-19 Vaccine ( season) Covid-19 Vaccine ( season) [facility] Start: 06-01-2024 Influenza vaccination Influenza Vacc ine (#1) [facility] Start: 2020 Screening for malign ant neoplasm of cervix Cervical Cancer Screening [facility] Start: 2018 Hepatitis B Vaccine (1 of 3 - 19+ 3-dose series) Hepatitis B Vaccine (1 of 3 - 19+ 3-dose series) [facility] Start: 2018 Urine microalbumin profile DTaP,Tdap,Td Vaccine (1 - Tdap) [facility] Start: 2017 Anxiety Screening Anxiety Screening [facility] Start: 2017 Depression Screening Depression Scre enkeith [facility] Start: 2017 Hepatitis C screening Hepatitis C Sc casey [facility] Start: 2017 HIV screening HIV Screening [facility] Start: 2014 HPV Vaccine (1 - 3-d ose series) HPV Vaccine (1 - 3-dose series) [facility] Start: 2013 Peds To Adult Transi tion Annual Assessment Peds To Adult Transition Annual Assessment [facility] Start: 2011 Peds To Adult Transi tion Initial Discussion Peds To Adult Transition Initial Discussion [facility] Patient referral [facility] Work Phone: Payers Date Payer Category Payer Private Health Insurance [id number] 2025 Self-pay 2024 Private Health Insurance JOSE MARIA may [id number] 2024 Private Health Insurance [id number] Unknown [id number] Unknown [id number] Unknown [id number] Unknown [id number] Unknown [id number] Unknown [id number] Social History Date Type Detail Facility Start: 01-12-2025 Tobacco smoking status NHIS Never smoked tobacco (finding) [facility] Start: 01-12-2025 End: 01-13-2025 Sex Female (finding) [facility] Start: 2000 Sex Assigned At Female [facility] Tobacco smoking status WYIS Tobacco smoking consumption unknown [facility] Start: 1999 Sex assigned at Not on file [facility] Gender identity Not on file [facility] inic NEGATED: Highlighted row Not [facility] Mental Status Date Assessment Result Facility 01-13-2025 Cognitive function Voice/Name [facility] Work Phone: Clinical Notes 2024 to 01-13-2025 Note Date & Type Note Facility 01-13-2025 Consult note [facility] 01-13-2025 Consult note Note Date/Time January 13, 2025 2:00am [facility] Medical Records Department [address] [place] [address] Pre-Anesthesia Evaluation 01/12/25 2344 MR#: [id number] Acct: [id number] Name: YESSICA SOLORZANO Rep #:[id number] : 2000 From: Ravinder Garcia MD PCP: Care Physician,No Primary Status :[facility] Y Race: C [place] [facility] [place] ASA Classification* ASA Classification ASA Classification: 2 and E Assessment & Plan Anesthesia* Anesthesia Assessment Anesthesia Assessment: Discussed sedation and/or anesthesia options, risks, benefits, and alternatives with patient/parents/legal guardian/POA. Questions invited. The patient/parents/legal guardian/POA seems to understand and agrees to proceedwith anesthesia plan. Reviewed the physical assessment, medical history, allergy history and patient home medications list prior to surgery/procedure/anesthetic and documented any changes. Performed airway and anesthesia risk assessments. Anesthesia Type Anesthesia Type: General Anesthesia Focused Assessment* Temperature: 98.7 F Pulse Rate: 110 Blood Pressure: 127/85 Respiratory Rate: 18 Pulse Ox: 100 Airway Assessment Mouth opens: >3 cm Mallampati Score: II Focused Labs Anesthesia Preop lab: CBC WBC 9.3 K/mm3 (4.4-11.0) 01/12/25 19:15 01/12/25 RBC 4.36 M/mm3 (4.2-5.4) 01/12/25 19:15 01/12/25 Hgb 13.5 g/dL (12.0-15.0) 01/12/25 19:15 01/12/25 Hct 37.7 % (37-47) 01/12/25 19:15 01/12/25 Plt Count 242 K/mm3 (150-450) 01/12/25 19:15 01/12/25 CHEMISTRY Potassium 3.4 mmol/L (3.3-5.1) 01/12/25 19:15 01/12/25 Sodium 136 mmol/L (133-145) 01/12/25 19:15 01/12/25 BUN 9 mg/dL (4-19) 01/12/25 19:15 01/12/25 Creatinine 0.72 mg/dL (0.70-1.20) 01/12/25 19:15 01/12/25 Glucose 90 mg/dL (70-99) 01/12/25 19:15 01/12/25 COAG HCG, Quant 3703 mIU/mL (<9 non-preg) H 01/12/25 19:15 Pre-Assessment Diagnosis/Proposed Procedure Planned Operative Procedure(s): Exploratory laparoscopy, remove ectopic Anesthesia History Anesthesia History - employment service specialist: Anesthesia History - employment service specialist Hx Hospitalization Any Problems With Anesthesia No 01/12/25 22:56 Cholinesterase deficiency You/Your Family Experience No 01/12/25 22:56 fever (hyperthermia) with Relationship Recent Exposure to Contagious No 01/12/25 22:56 Disease Does patient have nerve No 01/12/25 22:56 stimulator Patient instructed to have No 01/12/25 22:56 device shut off --Does patient have Pacemaker No 01/12/25 22:56 or ICD? When Was Last Pacemaker Check QUESTION #4 FULL TEXT: You/Your Family Experience fever (hyperthermia) with Anesthesia Last Oral Intake Last Oral intake: Last Oral Intake NPO since 22:18 01/12/25 22:56 Meds taken in AM with sips of water? Meds patient instructed to take am of surgery PONV PONV - employment service specialist: PONV - employment service specialist Female HX of Motion Sickness HX of N/V After Surgery Non-Smoker Duration of Surgery greater than 60 minutes Number of Risk Factors PONV Score Height & Weight Height & Weight: Anesthesia: Height & Weight Height 5 ft 3 in 01/12/25 22:56 Weight: 56.5 kg 01/12/25 22:56 Body Mass Index (BMI) 22.0 01/12/25 22:56 Respiratory Assessment Respiratory Assessment - employment service specialist: Respiratory Tract Infection Hx - employment service specialist Hx Respiratory Tract Infection No 01/12/25 22:56 STOP Sleep Apnea STOP Sleep Apnea - employment service specialist: STOP Sleep Apnea - employment service specialist Hx Hypertension No 01/12/25 22:56 Hx Sleep Apnea No 01/12/25 22:56 CPAP BIPAP Do you snore loudly (louder No 01/12/25 22:56 than talking or can be heard Do you often feel tired/ No 01/12/25 22:56 fatigued/ sleepy during daytime? Has anyone observed you stop No 01/12/25 22:56 breathing during sleep? STOP Results Negative 01/12/25 22:56 QUESTION #5 FULL TEXT : Do you snore loudly (louder than talking or can be heard through closed doors)? Tobacco Use History Tobacco Use History - employment service specialist: Tobacco Use History - employment service specialist Tobacco Use Smoking Status Never smoker 01/12/25 20:07 Hx Tobacco Use Years Smoking Packs Smoked per Day Smoking Cessation Date was within the last 15 years Hx Smoking Cessation Date Hx Smoking Cessation Counseling Hematologic Medial History Hematologic Hx - employment service specialist: Hematologic Medical Hx - personal care aid Hx of Blood Transfusion Hx of Transfusion in last 3 Months Date of Last Transfusion (if within last 3 months) Ever experience any problems with transfusion(s)? Specify any problems Hx of Preganancy in last 3 Months Nurse Filling Out Transfusion & Questions: Date: Time: Patient unable to answer at this time (ie. confused, unrespo /Reproduction History /Reproductive History - employment service specialist: /Reproductive Hx- employment service specialist Hx Now No 01/12/25 22:56 Gestational Age (in weeks): EDC: Hx 1 01/12/25 20:07 Hx Para Hx Section SAB No 01/12/25 22:56 PFSH Medical History no medical history Home Medications ?Medication ?Instructions ?Recorded ?Last Taken ?Type oxycodone-acetaminophen 5 mg-325 1 tab PO Q4H PRN pain 7 days #20 01/12/25 Unknown Rx mg tablet (Percocet) tabs Allergy/AdvReac Type Severity Reaction Status Date / Time No Known Allergies Allergy Verified 01/12/25 17:56 Surgical History no surgical history Social History Smoking Status: Never smoker Review of Systems (Anesthesia) ROS Narrative System reviewed and no additional complaints, except as documented. 01/12/25 2344 <Electronically signed by Ravinder Garcia MD > Date _ Ravinder Garcia MD Cosigner Signature: Date CC: ~ Signed [facility] Work Phone: 1(355) 252-538904-15-2025 Discharge summary Author Ray Rapp [facility] Note Date/Time January 12, 2025 11: 42pm [facility] Medical Records Department [address] [place] [id number] Emergency Department Summary 01/12/25 MR#: [id number] Acct: [id number] Name: YESSICA SOLORZANO Yomaira Rep #:[id number] : 2000 24 From: Ray Mcelroy PCP: Care Physician,No Primary Status :[place] [facility] [place] Location[place] [facility] [place] HPI HPI - Female History of Present Illness Chief Complaint: Vag Bld, Preg Pain Pain: Positive for Pelvic Pain Onset: Days Context: Gradual Onset Timing: Continuous Quality: Positive for Cramping Location: RLQ, LLQ and Suprapubic Worsened by: - (Eating) Relieved by: - (Nothing) Bleeding Issue: Positive for Vaginal bleeding Context: Gradual Onset Timing: Continuous Current Severity: Mild Maximum Severity: Mild Associated Symptoms Associated Symptoms: Negative for Dysuria or Frequency Test: Positive P: 0 Narrative Narrative: Patient presents with vaginal bleeding that began at couple days ago. Patient states that his been less than a normal period for her. Patient states she had a positive test but has not followed up with any HEALTH CARE TECHNICIAN yet. Patient states this is her first . Patient states she has lower abdominal cramping. Patient states this is worse with eating. The patient states nothingseems to help with it. Patient admits to some nausea but denies any vomiting. Patient denies any dysuria or frequency. PFSH PFSH Medical History no medical history no medical history Allergy/AdvReac Type Severity Reaction Status Date / Time No Known Allergies Allergy Verified 01/12/25 17:56 Surgical History no surgical history no surgical history Social History Smoking Status: Never smoker ROS ROS ED Constitutional Constitutional ED: Denies chills or fever(s) Eyes Eyes: Denies blurry vision or change in vision ENT ENT ED: Denies rhinorrhea or sore throat Cardiovascular Cardiovascular: Denies chest pain or palpitations Respiratory/Chest Respiratory/Chest: Denies cough or dyspnea Gastrointestinal Gastrointestinal: Reports abdominal pain and nausea; Denies vomiting Genitourinary Genitourinary ED: Denies dysuria or hematuria Musculoskeletal Musculoskeletal: Denies back pain or neck pain Integumentary Denies abscess or rash Neurologic Neurologic: Denies headache(s) or weakness Allergic/Immunologic Allergic/Immunologic ED: Denies mouth swelling or urticaria EXAM Physical Exam Const Vital Signs: 01/12/25 17:53 01/12/25 20:10 01/12/25 22:00 Temperature 98.0 F Temperature Source Oral Pulse Rate 88 101 H 97 Respiratory Rate 18 18 18 Blood Pressure 149/99 H 124/85 H 124/85 H Blood Pressure Mean 115 98 98 Pulse Ox 98 100 100 Oxygen Delivery Method Room Air Room Air Room Air Positive well nourished and well developed General Appearance ED: well developed and NAD HEENT Reports moist mucous membranes Neck supple and no JVD Resp normal respiratory effort and clear to auscultation bilaterally Cardio regular rate and regular rhythm GI soft to palpation and non-distended Palpation: tender LLQ, RLQ and suprapubic; Negative for guarding Neuro oriented x3, CN's II-XII intact bilaterally and no sensory deficits noted Sensorium / Orientation: alert Motor Exam: strength 5/5 throughout Psych mental status grossly normal MDM MDM MDM Narrative Medical decision making narrative: Differential diagnose includes ectopic , threatened miscarriage, incomplete miscarriage, and implantation bleeding. CBC will be obtained to assess for leukocytosis and anemia. Basic metabolic profile will be obtained toassess for electrolyte abnormality and renal function. Quantitative hCG will beobtained to assess for level. Urinalysis will be obtained to assess for urinary tract infection or hematuria. Blood type will be obtained to assessfor blood type and Rh. Lab Data Attestation: I reviewed the patient's lab results. Lab results narrative: CBC was reviewed and was within normal limits. Basic metabolic profile was reviewed and was within normal limits. Quantitative hCG was reviewed and was 12/05/2002. Urinalysis was reviewed. There is no evidence of urinary tract infection or hematuria. Blood type was reviewed and was O+. Labs: Laboratory Results - last 24 hr 01/12/25 01/12/25 19:15 20:05 WBC 9.3 RBC 4.36 Hgb 13.5 Hct 37.7 MCV 86.5 MCH 31.0 MCHC 35.8 RDW Std Deviation 41.7 RDW Coeff of Meghna 13.2 Plt Count 242 MPV 9.3 Immature Gran % (Auto) 0.400 Neut % (Auto) 61.7 Lymph % (Auto) 28.5 [place] % (Auto) 7.6 Eos % (Auto) 1.0 Baso % (Auto) 0.8 Absolute Neuts (auto) 5.8 Absolute Lymphs (auto) 2.66 Nucleated RBC % 0 Sodium 136 Potassium 3.4 Chloride 102 Carbon Dioxide 21.3 Anion Gap 13 BUN 9 Creatinine 0.72 Estim Creat Clear Calc 98.81 Est GFR (MDRD) Non-Af 118 BUN/Creatinine Ratio 12.6 Glucose 90 Calcium 9.1 HCG, Quant 3703 H Urine Color Straw Urine Clarity Clear Urine pH 6.5 Ur Specific [place] 1.010 Urine Protein 15 H Urine Glucose (UA) Normal Urine Ketones 50 H Urine Occult Blood 250 H Urine Nitrite Negative Urine Bilirubin Negative Urine Urobilinogen Normal Ur Leukocyte Esterase Negative Urine RBC 0-5 SEEN Urine WBC 0 SEEN Ur Squamous Epith Cells 0-5 SEEN Urine Bacteria 0 SEEN Urine Mucus 0 SEEN Blood Type O POSITIVE Radiography Diagnostic Testing: Clinical Impression(s) from Imaging Studies Obstetrics Ultrasound 01/12/25 19:32 IMPRESSION: No intrauterine gestational sac. Differential diagnosis includes an early intrauterine , early ectopic , or a missed . Moderate amount of free fluid with some internal echoes and hemorrhagic or purulent fluid can not be excluded. Dr. Wolfe was notified on 01/12/2025 at 21:00 Reading Location: [facility] Pelvic ultrasound was obtained. There is no intrauterine gestational sac. There is moderate amount of free fluid with some internal echoes. Hemorrhagic or purulent fluid cannot be excluded. This was interpreted by the radiologist and was also independently reviewed by myself. Treatment and Re-Evaluation Narrative: Patient was given IV fluids. Patient was advised of her findings. Case was discussed with Dr. Page Roberto. She was in to evaluate the patient. Christina take the patient to the operating room for ectopic . Patient understands and is agreeable with the plan. All questions were answered. Discharge Plan Triage Chief Complaint: Vag Bld, Preg ED Provider: Ray Rapp Dx/Rx/DC Orders Clinical Impression: Ectopic , Pelvic pain Primary Care Provider: Care Physician,No Primary Disposition Disposition: [facility] What to do if you have Problems For any increased pain, shortness of breath, bleeding, nausea or vomiting, chestpain, or any unexpected problems, contact your Primary Care Provider. Call [facility] ([phone]) or report to the closest Emergency Room. Call 911 if necessary. 01/12/25 2342 <Electronically signed by Ray Rapp DO> Cosigner Signature (if applicable): CC: No Primary Care Physician ~ Signed [facility] Work Phone: 1(548) 583-483104-15-2025 Discharge summary Author Page Roberto [facility] Note Date/Time January 13, 2025 12: 36am [facility] Medical Records Department [address] [place] [address] Instructions for Home/Discharge Instructions 01/12/25 2321 MR#: [id number] Acct: [id number] Name: JOSE GUADALUPELOLITAYESSICA J Rep #:[id number] : 2000 From: Page choi MD PCP: Care Physician,No Primary Status :REG SDC Discharge Instructions Diet Discharge Diet: No restrictions DC O2, CPAP, BIPAP needs Home O2 Discharge instructions: No Dressing / Incision Discharge Activity: Return to Normal Activity, May Not Drive ( while taking narcotic pain meds, when pain free), May Shower and May Take a Tub Bath (in 7 days) May resume sexual activity in: 1 week Weight Bearing Status: Full weight bearing Dressing / Incision Call your doctor if your incision/area has: Continuous Slow Oozing, Sudden Increased Bleeding, Increased Pain/ Swelling, Increased Redness and Foul Smelling Discharge Call your doctor if you observe: Fever of 101 or Higher, Using more than 1 pad per hour, Shortness of breath, Chest pain and Uncontrolled pain Suture Line Care: Avoid Pulling/Pushing and Avoid Pinching/Bending Remove Dressing in: 1 week (if present) Cleanse incision/area with: Soap & Water and Keep Dressing Clean & Dry Follow Up Care When: Call to make an appointment with your doctor for a fu/incision check in 1- 2 weeks. Test Results: Test results from this visit will be discussed in further detail at your follow- up appointment, if applicable. Discharge Plan Admission Attending Provider: Page Roberto Primary Care Provider: Care Physician,No Primary Instructions Print Language: [place] Discharge Orders/Prescriptions Prescriptions: New oxycodone-acetaminophen [Percocet] 5-325 mg tablet 1 tab PO Q4H PRN (Reason: pain) 7 Days Qty: 20 0RF Referrals / Follow Up: Care Physician,No Primary [Primary Care Provider] - Disposition Disposition (needs filled in before D/C Order can be placed): Home, Self Care 01/13/25 0036<Electronically signed by Page Rboerto MD>Page Roberto MD CC: No Primary Care Physician ~ Signed [facility] Work Phone: 1(579) 421-926404-15-2025 History and physical note Author Page Roberto [facility] Note Date/Time January 12, 2025 11: 20pm [facility] Medical Records Department [address] [place] [address] H&P Exam - HEALTH CARE TECHNICIAN 01/12/25 2314 MR#: [id number] Acct: [id number] Name: YESSICA SOLORZANO Rep #:[id number] : 2000 24 From: Page choi MD PCP: Care Physician,No Primary Status :REG [facility] [place] Location: [facility] [place] HPI - General HPI Narrative YESSICA SOLORZANO, is a 24 F who presents with vaginal bleeding for two weeks,nothing heavy but persistent. she then had new onset acute pelvic pain today, statred on the left and then caused burning across the whole lower abdomen. she is supposed to be 8 weeks along, quant of 3700 with no IUP seen, moerate amount of complex fluid in the cul de sac. she denies any passage of tissue. she has no history of pelvic infection. PFSH PFSH Medical History no medical history Allergy/AdvReac Type Severity Reaction Status Date / Time No Known Allergies Allergy Verified 01/12/25 17:56 Surgical History no surgical history Social History Smoking Status: Never smoker ROS Constitutional Constitutional: Reports systems reviewed and no addt'l complaints, except as documented; Denies as per HPI, change in weight, fatigue, fever(s), malaise, weakness or other Eyes Eyes: Reports systems reviewed and no addt'l complaints, except as documented; Denies as per HPI, change in vision or other ENT HEENT: Reports systems reviewed and no addt'l complaints, except as documented Respiratory/Chest Respiratory/Chest: Reports systems reviewed and no addt'l complaints, except as documented Gastrointestinal Gastrointestinal: Reports systems reviewed and no addt'l complaints, except as documented and as per HPI Genitourinary Genitourinary: Reports as per HPI Musculoskeletal Musculoskeletal: Reports systems reviewed and no addt'l complaints, except as documented Neurologic Neurologic: Reports systems reviewed and no addt'l complaints, except as documented Psychiatric Psychiatric: Reports systems reviewed and no addt'l complaints, except as documented Endocrine Endocrinology: Reports systems reviewed and no addt'l complaints, except as documented Hematologic/Lymphatic Hematologic/Lymphatic: Reports systems reviewed and no addt'l complaints, exceptas documented Vital Signs Vital Signs Vital Signs: 01/12/25 17:53 01/12/25 20:10 01/12/25 22:00 Temperature 98.0 F Temperature Source Oral Pulse Rate 88 101 H 97 Respiratory Rate 18 18 18 Blood Pressure 149/99 H 124/85 H 124/85 H Blood Pressure Mean 115 98 98 Blood Pressure Source Blood Pressure Position Blood Pressure Location Pulse Ox 98 100 100 Oxygen Delivery Method Room Air Room Air Room Air 01/12/25 22:56 01/12/25 23:01 Temperature 98.7 F 98.7 F Temperature Source Oral Pulse Rate 110 H 110 H Respiratory Rate 18 18 Blood Pressure 127/85 H 127/85 H Blood Pressure Mean 99 99 Blood Pressure Source Monitor Blood Pressure Position Semi-Fowlers Blood Pressure Location Right Arm Pulse Ox 98 100 Oxygen Delivery Method Room Air Weight Weight: 124 lb 8.979 oz Body Mass Index (BMI) 22.0 Physical Exam Const alert, oriented x3 and no apparent distress HEENT normocephalic Head and Scalp: atraumatic Eyes EOMs intact bilaterally and conjunctivae normal Neck full ROM, no lymphadenopathy, supple and thyroid normal General: trachea midline Lymph Lymphatic: no lymphadenopathy noted Resp normal respiratory effort, no retractions, no use of accessory muscles and clearto auscultation bilaterally Cardio regular rhythm GI normal to inspection, nondistended, normoactive bowel sounds, soft to palpation,non-distended and no masses Inspection: Negative for abdominal distention Back/Spine no CVA tenderness Extremity normal to inspection Skin no rashes or lesions noted Neuro moves all extremities and deep tendon reflexes 2+ bilaterally Psych mental status grossly normal Labs Labs Labs: Blood Type O POSITIVE Hct 37.7 % (37-47) Hgb 13.5 g/dL (12.0-15.0) Obstetrics Ultrasound Assessment & Plan (1) Ectopic : (2) Pelvic pain: PLAN: Plan recommend proceeding with laparoscopic evaluation for teramtent of ectopic possible salpingectomy After discussing the patient's diagnosis and treatment plan options, patient wishes to proceed with surgical management. I have discussed with the patient the risks, benefits, and alternatives of the procedure which include but are notlimited to risks of anesthesia, bleeding, infection, possible damage to bowel, bladder, or surrounding vasculature which could lead to additional surgery to evaluate any complications. Patient agrees to procedure and wishes to proceed. ACOG/uptodate references given for additional information regarding procedure. 01/12/252319 <Electronically signed by Page Roberto MD> Cosigner Signature (if applicable): CC: Dr. Page Roberto MD; No Primary Care Physician~ Signed [facility] Work Phone: 1(499) 745-316404-15-2025 Consult note [facility] Medical Records Department [address] [place] [address] [place] [address] Anesthesia Postop Eval I 01/13/25 0053 MR#: [id number] Acct: [id number] Name: YESSICA SOLORZANO Rep #:[id number] : 2000 From: Ravinder Garcia MD PCP: Care Physician,No Primary Status :REG SDC Y Race: C [place] [facility] [place] Anesthesia: Postop Eval I Current Vital Signs Temperature: 97.8 F Pulse Rate: 114 Blood Pressure: 127/88 Respiratory Rate: 16 Pulse Ox: 100 Assessment Airway patent: Yes Spontaneous unlabored respirations: Yes Mental status: Awake nausea: No Vomiting: No Anesthesia Complication: No Fluid Hydration Crystalloid volume administer (ml): 1,000 Total IV fluid infused: 1,000 Progress Note Anesthesia document: Postop Eval 1 completed: Yes 01/13/25 0054 > Date _ Ravinder Garcia MD Cosigner Signature: Date CC: ~ Signed [facility]04-15-2025 Evaluation note* Diagnosis Onset Date Resolution Status Admit Date Ectopic acute December 302024 10:42pm Pelvic pain acute January 12, 10:42pm [facility] Work Phone: 1(141) 472-532604-15-2025 Discharge summary [facility] Medical Records Department [address] [place] [id number] Instructions for Home/Discharge Instructions 01/12/25 2321 MR#: [id number] Acct: [id number] Name: DUNCAN SOLORZANONENA Burnette Rep #:[id number] : 2000 From: Page choi MD PCP: Care Physician,No Primary Status :REG SD Discharge Instructions Diet Discharge Diet: No restrictions DC O2, CPAP, BIPAP needs Home O2 Discharge instructions: No Dressing / Incision Discharge Activity: Return to Normal Activity, May Not Drive ( while taking narcotic pain meds, when pain free), May Shower and May Take a Tub Bath (in 7 days) May resume sexual activity in: 1 week Weight Bearing Status: Full weight bearing Dressing / Incision Call your doctor if your incision/area has: Continuous Slow Oozing, Sudden Increased Bleeding, Increased Pain/ Swelling, Increased Redness and Foul Smelling Discharge Call your doctor if you observe: Fever of 101 or Higher, Using more than 1 pad per hour, Shortness of breath, Chest pain and Uncontrolled pain Suture Line Care: Avoid Pulling/Pushing and Avoid Pinching/Bending Remove Dressing in: 1 week (if present) Cleanse incision/area with: Soap & Water and Keep Dressing Clean & Dry Follow Up Care When: Call to make an appointment with your doctor for a fu/incision check in 1- 2 weeks. Test Results: Test results from this visit will be discussed in further detail at your follow- up appointment, if applicable. Discharge Plan Admission Attending Provider: Page Roberto Primary Care Provider: Care Physician,No Primary Instructions Print Language: [place] Discharge Orders/Prescriptions Prescriptions: New oxycodone-acetaminophen [Percocet] 5-325 mg tablet 1 tab PO Q4H PRN (Reason: pain) 7 Days Qty: 20 0RF Referrals / Follow Up: Care Physician,No Primary [Primary Care Provider] - Disposition Disposition (needs filled in before D/C Order can be placed): Home, Self Care 01/13/25 0036Page Roberto MD CC: No Primary Care Physician ~ Signed [facility]04-15-2025 Procedure note [facility] Medical Records Department [address] [place] [address] Operative Report 01/12/25 2320 MR#: [id number] Acct: [id number] Name: YESSICA SOLORZANO Rep #:[id number] : 2000 From: Page choi MD PCP: Care Physician,No Primary Status :[facility] Location: [facility] Problems Associated Problem List Diagnoses (1) Ectopic : Procedures Urinary/Genital 52xxx-59xxx: 96540 Treat ectopic lapro w/ salpingectomy Operative Report (Standard) Operative Information Date of Procedure: 01/12/25 Pre-Operative Diagnosis: see problem list Post-Operative Diagnosis: same ruptured left ectopic Surgery/Procedure Performed: laparoscopic left salpingectomy talent coordinator: Yes Account Services Coordinator: Gloria Shrestha Tasks completed by presser first: Opening & closing, Altering tissue and Insert Trochanter Additional emergency veterinary assistant?: No Type of Anesthesia: General RN Documented Start/Stop Times: Operation Date: 01/13/25 00:00 Case Time Anesthesia Start 01/12/25 23:46 Into Room 01/12/25 23:46 Procedure Start 01/13/25 00:10 Procedure Start Time: 00:10 Procedure Stop Time: 12:36 Select all DRAINS/GRAFTS/IMPLANTS that apply: None Estimated Blood Loss: 50 Specimen collected: Yes Description of specimen(s) removed: ectopic, tube Description of surgery: Patient was taken in the operating room and was placed under general anesthesia was prepped and draped in normal sterile fashion in the dorsal lithotomy position. Bladder was drained of clear urine and SCDs were on preoperatively. Uterus was sounded and a uterine manipulator was placed after dilating. Attention was then paid to the abdominal portion of the procedure and the umbilicus was elevatedwith towel clamps and injected with Marcaine and after a 5 mm incision was made and the Veress needle was entered into the abdomen confirmed to be intra-abdominal with a low opening pressure of less than 5 mmHg. Abdomen was insufflated with CO2 gas and a 5 mm optical trocar was placed underdirect visualization. A left lower quadrant 5 mm port and a 5 mm port suprapubically were placed under direct visualization. Uterus was well visualized and upon inspection of the pelvis and ectopic was seen in the left fallopian tube. Using a LigaSure device the mesosalpinx was transectedand the fallopian tube removed including the ectopic and removed through the LLQ port site that was5mm and was large enough to allow passage of a laparoscopic bag. Excellent hemostasis was noted in the pelvis. no other gross abnormalities were seen in the abdomen. All instruments removed from the abdomen after gas was desufflated. Port sites were closed with 3-0 Monocryl Steri's and op sites were applied. All instruments removed from the vagina and patient was awoken and taken recovery in stable condition. Surgical Findings: left ectopic Complications Complications: No 01/13/25 0036 Cosigner Signature (if applicable): CC: Dr. Page Roberto MD; No Primary Care Physician~ Signed [facility]04-14-2025 Discharge summary [facility] Medical Records Department [address] [place] [address] Emergency Department Summary 01/12/25 MR#: [id number] Acct: [id number] Name: YESSICA SOLORZANO Rep #:[id number] : 2000 24 From: Ray Mcelroy PCP: Care Physician,No Primary Status :[facility] Location: [facility] HPI HPI - Female History of Present Illness Chief Complaint: Vag Bld, Preg Pain Pain: Positive for Pelvic Pain Onset: Days Context: Gradual Onset Timing: Continuous Quality: Positive for Cramping Location: RLQ, LLQ and Suprapubic Worsened by: - (Eating) Relieved by: - (Nothing) Bleeding Issue: Positive for Vaginal bleeding Context: Gradual Onset Timing: Continuous Current Severity: Mild Maximum Severity: Mild Associated Symptoms Associated Symptoms: Negative for Dysuria or Frequency Test: Positive P: 0 Narrative Narrative: Patient presents with vaginal bleeding that began at couple days ago. Patient states that his been less than a normal period for her. Patient states she had a positive test but has not followed up with any HEALTH CARE TECHNICIAN yet. Patient states this is her first . Patient states she has lower abdominal cramping. Patient states this is worse with eating. The patient states nothingseems to help with it. Patient admits to some nausea but denies any vomiting. Patient denies any dysuria or frequency. PFSH PFSH Medical History no medical history no medical history Allergy/AdvReac Type Severity Reaction Status Date / Time No Known Allergies Allergy Verified 01/12/25 17:56 Surgical History no surgical history no surgical history Social History Smoking Status: Never smoker ROS ROS ED Constitutional Constitutional ED: Denies chills or fever(s) Eyes Eyes: Denies blurry vision or change in vision ENT ENT ED: Denies rhinorrhea or sore throat Cardiovascular Cardiovascular: Denies chest pain or palpitations Respiratory/Chest Respiratory/Chest: Denies cough or dyspnea Gastrointestinal Gastrointestinal: Reports abdominal pain and nausea; Denies vomiting Genitourinary Genitourinary ED: Denies dysuria or hematuria Musculoskeletal Musculoskeletal: Denies back pain or neck pain Integumentary Denies abscess or rash Neurologic Neurologic: Denies headache(s) or weakness Allergic/Immunologic Allergic/Immunologic ED: Denies mouth swelling or urticaria EXAM Physical Exam Const Vital Signs: 01/12/25 17:53 01/12/25 20:10 01/12/25 22:00 Temperature 98.0 F Temperature Source Oral Pulse Rate 88 101 H 97 Respiratory Rate 18 18 18 Blood Pressure 149/99 H 124/85 H 124/85 H Blood Pressure Mean 115 98 98 Pulse Ox 98 100 100 Oxygen Delivery Method Room Air Room Air Room Air Positive well nourished and well developed General Appearance ED: well developed and NAD HEENT Reports moist mucous membranes Neck supple and no JVD Resp normal respiratory effort and clear to auscultation bilaterally Cardio regular rate and regular rhythm GI soft to palpation and non-distended Palpation: tender LLQ, RLQ and suprapubic; Negative for guarding Neuro oriented x3, CN's II-XII intact bilaterally and no sensory deficits noted Sensorium / Orientation: alert Motor Exam: strength 5/5 throughout Psych mental status grossly normal MDM MDM MDM Narrative Medical decision making narrative: Differential diagnose includes ectopic , threatened miscarriage, incomplete miscarriage, and implantation bleeding. CBC will be obtained to assess for leukocytosis and anemia. Basic metabolic profile will be obtained toassess for electrolyte abnormality and renal function. Quantitative hCGwill beobtained to assess for level. Urinalysis will be obtained to assess for urinary tract infection or hematuria. Blood type will be obtained to assessfor blood type and Rh. Lab Data Attestation: I reviewed the patient's lab results. Lab results narrative: CBC was reviewed and was within normal limits. Basic metabolic profile was reviewed and was within normal limits. Quantitative hCG was reviewed and was 12/05/2002. Urinalysis was reviewed. There is no evidence of urinary tract infection or hematuria. Blood type was reviewed and was O+. Labs: Laboratory Results - last 24 hr 01/12/25 01/12/25 19:15 20:05 WBC 9.3 RBC 4.36 Hgb 13.5 Hct 37.7 MCV 86.5 MCH 31.0 MCHC 35.8 RDW Std Deviation 41.7 RDW Coeff of Meghna 13.2 Plt Count 242 MPV 9.3 Immature Gran % (Auto) 0.400 Neut % (Auto) 61.7 Lymph % (Auto) 28.5 [place] % (Auto) 7.6 Eos % (Auto) 1.0 Baso % (Auto) 0.8 Absolute Neuts (auto) 5.8 Absolute Lymphs (auto) 2.66 Nucleated RBC % 0 Sodium 136 Potassium 3.4 Chloride 102 Carbon Dioxide 21.3 Anion Gap 13 BUN 9 Creatinine 0.72 Estim Creat Clear Calc 98.81 Est GFR (MDRD) Non-Af 118 BUN/Creatinine Ratio 12.6 Glucose 90 Calcium 9.1 HCG, Quant 3703 H Urine Color Straw Urine Clarity Clear Urine pH 6.5 Ur Specific [place] 1.010 Urine Protein 15 H Urine Glucose (UA) Normal Urine Ketones 50 H Urine Occult Blood 250 H Urine Nitrite Negative Urine Bilirubin Negative Urine Urobilinogen Normal Ur Leukocyte Esterase Negative Urine RBC 0-5 SEEN Urine WBC 0 SEEN Ur Squamous Epith Cells 0-5 SEEN Urine Bacteria 0 SEEN Urine Mucus 0 SEEN Blood Type O POSITIVE Radiography Diagnostic Testing: Clinical Impression(s) from Imaging Studies Obstetrics Ultrasound 01/12/25 19:32 IMPRESSION: No intrauterine gestational sac. Differential diagnosis includes an early intrauterine , early ectopic , or a missed . Moderate amount of free fluid with some internal echoes and hemorrhagic or purulent fluid can not be excluded. Dr. Wolfe was notified on 01/12/2025 at 21:00 Reading Location: [facility] Pelvic ultrasound was obtained. There is no intrauterine gestational sac. There is moderate amount of free fluid with some internal echoes. Hemorrhagic or purulent fluid cannot be excluded. This was interpreted by the radiologist and was also independently reviewed by myself. Treatment and Re-Evaluation Narrative: Patient was given IV fluids. Patient was advised of her findings. Case was discussed with Dr. aPge Roberto. She was in to evaluate the patient. Christina take the patient to the operating room for ectopic . Patient understands and is agreeable with the plan. All questions were answered. Discharge Plan Triage Chief Complaint: Vag Bld, Preg ED Provider: Ray Rapp Dx/Rx/DC Orders Clinical Impression: Ectopic , Pelvic pain Primary Care Provider: Care Physician,No Primary Disposition Disposition: Acute Care Hospital [facility] What to do if you have Problems For any increased pain, shortness of breath, bleeding, nausea or vomiting, chestpain, or any unexpected problems, contact your Primary Care Provider. Call [facility] ([phone]) or report tothe closest Emergency Room. Call 911 if necessary. 01/12/25 2342 Cosigner Signature (if applicable): CC: No Primary Care Physician ~ Signed [facility]04-14-2025 History and physical note [facility] Medical Records Department [address] [place] [address] H&P Exam - HEALTH CARE TECHNICIAN 01/12/25 2314 MR#: [id number] Acct: [id number] Name: YESSICA SOLORZANO Rep #:[id number] : 2000 From: Page choi MD PCP: Care Physician,No Primary Status :REG [facility] Location: [facility] HPI - General HPI Narrative YESSICA SOLOZRANO, is a 24 F who presents with vaginal bleeding for two weeks,nothing heavy but persistent. she then had new onset acute pelvic pain today, statred on the left and then caused burning across the whole lower abdomen. she is supposed to be 8 weeks along, quant of 3700 with no IUP seen, moerate amount of complex fluid in the cul de sac. she denies any passage of tissue. she has no history of pelvic infection. PFSH PFSH Medical History no medical history Allergy/AdvReac Type Severity Reaction Status Date / Time No Known Allergies Allergy Verified 01/12/25 17:56 Surgical History no surgical history Social History Smoking Status: Never smoker ROS Constitutional Constitutional: Reports systems reviewed and no addt'l complaints, except as documented; Denies as per HPI, change in weight, fatigue, fever(s), malaise, weakness or other Eyes Eyes: Reports systems reviewed and no addt'l complaints, except as documented; Denies as per HPI, change in vision or other ENT HEENT: Reports systems reviewed and no addt'l complaints, except as documented Respiratory/Chest Respiratory/Chest: Reports systems reviewed and no addt'l complaints, except as documented Gastrointestinal Gastrointestinal: Reports systems reviewed and no addt'l complaints, except as documented and as per HPI Genitourinary Genitourinary: Reports as per HPI Musculoskeletal Musculoskeletal: Reports systems reviewed and no addt'l complaints, except as documented Neurologic Neurologic: Reports systems reviewed and no addt'l complaints, except as documented Psychiatric Psychiatric: Reports systems reviewed and no addt'l complaints, except as documented Endocrine Endocrinology: Reports systems reviewed and no addt'l complaints, except as documented Hematologic/Lymphatic Hematologic/Lymphatic: Reports systems reviewed and no addt'l complaints, exceptas documented Vital Signs Vital Signs Vital Signs: 01/12/25 17:53 01/12/25 20:10 01/12/25 22:00 Temperature 98.0 F Temperature Source Oral Pulse Rate 88 101 H 97 Respiratory Rate 18 18 18 Blood Pressure 149/99 H 124/85 H 124/85 H Blood Pressure Mean 115 98 98 Blood Pressure Source Blood Pressure Position Blood Pressure Location Pulse Ox 98 100 100 Oxygen Delivery Method Room Air Room Air Room Air 01/12/25 22:56 01/12/25 23:01 Temperature 98.7 F 98.7 F Temperature Source Oral Pulse Rate 110 H 110 H Respiratory Rate 18 18 Blood Pressure 127/85 H 127/85 H Blood Pressure Mean 99 99 Blood Pressure Source Monitor Blood Pressure Position Semi-Fowlers Blood Pressure Location Right Arm Pulse Ox 98 100 Oxygen Delivery Method Room Air Weight Weight: 124 lb 8.979 oz Body Mass Index (BMI) 22.0 Physical Exam Const alert, oriented x3 and no apparent distress HEENT normocephalic Head and Scalp: atraumatic Eyes EOMs intact bilaterally and conjunctivae normal Neck full ROM, no lymphadenopathy, supple and thyroid normal General: trachea midline Lymph Lymphatic: no lymphadenopathy noted Resp normal respiratory effort, no retractions, no use of accessory muscles and clearto auscultation bilaterally Cardio regular rhythm GI normal to inspection, nondistended, normoactive bowel sounds, soft to palpation,non-distended and no masses Inspection: Negative for abdominal distention Back/Spine no CVA tenderness Extremity normal to inspection Skin no rashes or lesions noted Neuro moves all extremities and deep tendon reflexes 2+ bilaterally Psych mental status grossly normal Labs Labs Labs: Blood Type O POSITIVE Hct 37.7 % (37-47) Hgb 13.5 g/dL (12.0-15.0) Obstetrics Ultrasound Assessment & Plan (1) Ectopic : (2) Pelvic pain: PLAN: Plan recommend proceeding with laparoscopic evaluation for teramtent of ectopic possible salpingectomy After discussing the patient's diagnosis and treatment plan options, patient wishes to proceed withsurgical management. I have discussed with the patient the risks, benefits, and alternatives of theprocedure which include but are notlimited to risks of anesthesia, bleeding, infection, possible damage to bowel, bladder, or surrounding vasculature which could lead to additional surgery to evaluate any complications. Patient agrees to procedure and wishes to proceed. ACOG/uptodate references given for additional information regarding procedure. 01/12/25 2320 Cosigner Signature (if applicable): CC: Dr. Page Roberto MD; No Primary Care Physician~ Signed [facility]04-14-2025 Radiology Diagnostic study note [facility] Imaging Services [address] [place], [place] [address] Transvaginal w/Preg US MR#: [id number] Acct: [id number] Name: YESSICA SOLORZANO Rep #: [id number] : 2000 F 24 From: Nimesh Batista MD PCP: Care Physician,No Primary Status: REG ER Study:Transvaginal w/Preg US Date of Exam: 01/12/25 Exam# [id number] Ordering Dr: Ray Rapp DO PROCEDURE: TRANSVAGINAL W/PREG US 01/12/2025 REASON FOR EXAM: PELVIC PAIN TECHNIQUE: Transvaginal pelvic ultrasound Transvaginal FINDINGS: Measurements: Uterus: 7.2 x 5.7 x 3.5 with a volume of mL Endometrial Thickness: 14 mm Right Ovary: 2.5 x 1.7 x 1.5 with a volume of mL. Left Ovary: 2.5 x 1.8 x 1.8 with a volume of mL. . Uterus: Anteverted. Normal contour and myometrial echotexture. Endometrium: Normal echotexture. Right ovary: Normal size and echotexture. Left ovary: Normal size and echotexture. 1 cm isoechoic area within the left ovary of uncertain significance. Other adnexal findings: None. Cul-de-sac: Moderate amount of free fluid with some internal echoes No tenderness. Number of Gestational Sacs: None Gestational Sac Shape: Normal Number of Fetuses: None US/Transvaginal w/Preg US IMPRESSION: No intrauterine gestational sac. Differential diagnosis includes an early intrauterine , early ectopic , or a missed . Moderate amount of free fluid with some internal echoes and hemorrhagic or purulent fluid can not be excluded. Dr. Wolfe was notified on 01/12/2025 at 21:00 Reading Location: [facility] CC: Dr. Ray Rapp, DO; No Primary Care Physician ~ [employer] Solutions Architect: Signed [facility]04-14-2025 NoteHNO ID: [id number] Author: NETTE MILLER APRN.CNP Service: ? Author Type: Nurse Practitioner [...] Discussed limitations of express care, [facility] History of Present illness Narrative* Nette Miller APRN.CNP - 01/12/2025 5:14 PM EDT Called to triage patient by [facility]SS staff 24 year old female who is 5 weeks Has been complaining of vaginal bleeding, x 2 weeks Today she developed pelvic pain and cramping I need to make sure that I don't have an ectopic Discussed limitations of express care, [facility] Consult note Author Ravinder Garcia [facility] Note Date/Time January 13, 2025 12: 54am [facility] Medical Records Department [address] [place] [address] Anesthesia Postop Eval I 01/13/25 0053 MR#: [id number] Acct: [id number] Name: YESSICA SOLORZANO Rep #:[id number] : 2000 24 From: Ravinder Garcia MD PCP: Care Physician,No Primary Status :[facility] Y Race: C Location: [facility] Anesthesia: Postop Eval I Current Vital Signs Temperature: 97.8 F Pulse Rate: 114 Blood Pressure: 127/88 Respiratory Rate: 16 Pulse Ox: 100 Assessment Airway patent: Yes Spontaneous unlabored respirations: Yes Mental status: Awake nausea: No Vomiting: No Anesthesia Complication: No Fluid Hydration Crystalloid volume administer (ml): 1,000 Total IV fluid infused: 1,000 Progress Note Anesthesia document: Postop Eval 1 completed: Yes 01/13/2553 <Electronically signed by Ravinder Garcia MD > Date _ Ravinder Garcia MD Cosigner Signature: Date CC: ~ Signed [facility] Work Phone: 1(172) 471-713412-07-2024 Consult note Author Ravinder [facility] Note Date/Time January 13, 2025 2:0 0am [facility] Medical Records Department [address] [place] [address] Anesthesia Postop Eval II 01/13/2554 MR#: [id number] Acct: [id number] Name: YESSICA SOLORZANO Rep #:[id number] : 2000 From: Ravinder Garcia MD PCP: Care Physician,No Primary Status :[facility] Y Race: C [place]: [facility] Anesthesia Postop Eval I Sum Postop Eval Completion status Anesthesia document: Postop Eval 1 completed: Yes Anesthesia Postop Eval I Summary Anesthesia Postop Eval I Summary: Anesthesia Postop Eval I: Assessment Summary Airway patent Yes 01/13/25 00:54 Spontaneous unlabored Yes 01/13/25 00:54 respirations Mental status Awake 01/13/25 00:54 nausea No 01/13/25 00:54 Vomiting No 01/13/25 00:54 Anesthesia Postop Eval I: Fluid Summary Crystalloid volume administer 1,000 01/13/25 00:54 (ml) Colloids volume administered ( ml) Blood Product volume administered (ml) Total IV fluid infused 1,000 01/13/25 00:54 Anesthesia Postop Eval I: Summary Notes Anesthesia Complication No 01/13/25 00:54 Anesthesia Complication Comment: Post-operative progress note Anesthesia: Postop Eval II Evaluation Mental status: Awake Pain Level: 1 nausea: No Vomiting: No 01/13/2554 <Electronically signed by Ravinder Garcia MD > Date _ Ravinder Garcia MD Cosigner Signature: Date CC: ~ Signed [facility] Work Phone: Consult note [facility] Medical Records Department [address] [place] [id number] Anesthesia Postop Eval II 01/13/2554 MR#: [id number] Acct: [id number] Name: YESSICA SOLORZANO Rep #:[id number] : 2000 24 From: Ravinder Garcia MD PCP: Care Physician,No Primary Status :[facility] Y Race: C Location: [facility] Anesthesia Postop Eval I Sum Postop Eval Completion status Anesthesia document: Postop Eval 1 completed: Yes Anesthesia Postop Eval I Summary Anesthesia Postop Eval I Summary: Anesthesia Postop Eval I: Assessment Summary Airway patent Yes 01/13/25 00:54 Spontaneous unlabored Yes 01/13/25 00:54 respirations Mental status Awake 01/13/25 00:54 nausea No 01/13/25 00:54 Vomiting No 01/13/25 00:54 Anesthesia Postop Eval I: Fluid Summary Crystalloid volume administer 1,000 01/13/25 00:54 (ml) Colloids volume administered ( ml) Blood Product volume administered (ml) Total IV fluid infused 1,000 01/13/25 00:54 Anesthesia Postop Eval I: Summary Notes Anesthesia Complication No 01/13/25 00:54 Anesthesia Complication Comment: Post-operative progress note Anesthesia: Postop Eval II Evaluation Mental status: Awake Pain Level: 1 nausea: No Vomiting: No 01/13/25 0055 > Date _ Ravinder Vivas Signature: Date CC: ~ [facility] Diagnosis Onset Date Resolution Status Admit Date Ectopic acute December 302024 10:42pm Pelvic pain acute January 12, 025 10:42pm [facility] Work Phone: Evaluation note* Diagnosis Vaginal bleeding in patient at less than 20 weeks gestation (HCC)- Primary [facility] Author Page Roberto [facility] Note Date/Time January 12, 2025 11: 20pm [facility] Medical Records Department [address] [place] [address] H&P Exam - HEALTH CARE TECHNICIAN 01/12/25 2314 MR#: [id number] Acct: [id number] Name: YESSICA SOLORZANO Rep #:[id number] : 2000 24 From: Page choi MD PCP: Care Physician,No Primary Status :REG [facility] Location: [facility] HPI - General HPI Narrative YESSICA SOLORZANO, is a 24 F who presents with vaginal bleeding for two weeks,nothing heavy but persistent. she then had new onset acute pelvic pain today, statred on the left and then caused burning across the whole lower abdomen. she is supposed to be 8 weeks along, quant of 3700 with no IUP seen, moerate amount of complex fluid in the cul de sac. she denies any passage of tissue. she has no history of pelvic infection. PFSH PFSH Medical History no medical history Allergy/AdvReac Type Severity Reaction Status Date / Time No Known Allergies Allergy Verified 01/12/25 17:56 Surgical History no surgical history Social History Smoking Status: Never smoker ROS Constitutional Constitutional: Reports systems reviewed and no addt'l complaints, except as documented; Denies as per HPI, change in weight, fatigue, fever(s), malaise, weakness or other Eyes Eyes: Reports systems reviewed and no addt'l complaints, except as documented; Denies as per HPI, change in vision or other ENT HEENT: Reports systems reviewed and no addt'l complaints, except as documented Respiratory/Chest Respiratory/Chest: Reports systems reviewed and no addt'l complaints, except as documented Gastrointestinal Gastrointestinal: Reports systems reviewed and no addt'l complaints, except as documented and as per HPI Genitourinary Genitourinary: Reports as per HPI Musculoskeletal Musculoskeletal: Reports systems reviewed and no addt'l complaints, except as documented Neurologic Neurologic: Reports systems reviewed and no addt'l complaints, except as documented Psychiatric Psychiatric: Reports systems reviewed and no addt'l complaints, except as documented Endocrine Endocrinology: Reports systems reviewed and no addt'l complaints, except as documented Hematologic/Lymphatic Hematologic/Lymphatic: Reports systems reviewed and no addt'l complaints, exceptas documented Vital Signs Vital Signs Vital Signs: 01/12/25 17:53 01/12/25 20:10 01/12/25 22:00 Temperature 98.0 F Temperature Source Oral Pulse Rate 88 101 H 97 Respiratory Rate 18 18 18 Blood Pressure 149/99 H 124/85 H 124/85 H Blood Pressure Mean 115 98 98 Blood Pressure Source Blood Pressure Position Blood Pressure Location Pulse Ox 98 100 100 Oxygen Delivery Method Room Air Room Air Room Air 01/12/25 22:56 01/12/25 23:01 Temperature 98.7 F 98.7 F Temperature Source Oral Pulse Rate 110 H 110 H Respiratory Rate 18 18 Blood Pressure 127/85 H 127/85 H Blood Pressure Mean 99 99 Blood Pressure Source Monitor Blood Pressure Position Semi-Fowlers Blood Pressure Location Right Arm Pulse Ox 98 100 Oxygen Delivery Method Room Air Weight Weight: 124 lb 8.979 oz Body Mass Index (BMI) 22.0 Physical Exam Const alert, oriented x3 and no apparent distress HEENT normocephalic Head and Scalp: atraumatic Eyes EOMs intact bilaterally and conjunctivae normal Neck full ROM, no lymphadenopathy, supple and thyroid normal General: trachea midline Lymph Lymphatic: no lymphadenopathy noted Resp normal respiratory effort, no retractions, no use of accessory muscles and clearto auscultation bilaterally Cardio regular rhythm GI normal to inspection, nondistended, normoactive bowel sounds, soft to palpation,non-distended and no masses Inspection: Negative for abdominal distention Back/Spine no CVA tenderness Extremity normal to inspection Skin no rashes or lesions noted Neuro moves all extremities and deep tendon reflexes 2+ bilaterally Psych mental status grossly normal Labs Labs Labs: Blood Type O POSITIVE Hct 37.7 % (37-47) Hgb 13.5 g/dL (12.0-15.0) Obstetrics Ultrasound Assessment & Plan (1) Ectopic : (2) Pelvic pain: PLAN: Plan recommend proceeding with laparoscopic evaluation for teramtent of ectopic possible salpingectomy After discussing the patient's diagnosis and treatment plan options, patient wishes to proceed with surgical management. I have discussed with the patient the risks, benefits, and alternatives of the procedure which include but are notlimited to risks of anesthesia, bleeding, infection, possible damage to bowel, bladder, or surrounding vasculature which could lead to additional surgery to evaluate any complications. Patient agrees to procedure and wishes to proceed. ACOG/uptodate references given for additional information regarding procedure. 01/12/252319 <Electronically signed by Page Roberto MD> Cosigner Signature (if applicable): CC: Dr. Page Roberto MD; No Primary Care Physician~ Signed [facility] Work Phone: Reason for referral (narrative)No reason for referral information available[facility] Work Phone: Chief Complaint and Reason for Visit Chief Complaint Admit Date RUPTURED ECTOPIC January 12, 2025 10: 42pm RUPTURED ECTOPIC January 12, 2025 11: 14pm Reason for Visit Admit Date Ectopic January 12, 2025 10: 42pm Pelvic pain January 12, 2025 10: 42pm Advance Directives No Advanced Directives Records Found Advance Directive Response Recorded Date/ Time Living Will No January 12, 2025 8:07pm Do you have a Healthcare Power of Parasitology Teacher? No January 12, 2025 8:07pm Summary Purpose Family History No Family History Records FoundNo Family History Records Found Additional Source Comments Care Teams (unrecognized sec tion and content) Team Status: Active Member Role Status Dates No Primary Care Physician Primary Care Provider Active Team Status: Inactive Member Role Status Dates Dr. Ray Rapp DO Emergency Provider Active Start: January 12, 2025 End: January 13, 2025 No Primary Care Physician Primary Care Provider Active Start: January 12, 2025 End: January 13, 2025 Dr. Page Roberto MD Attending Provider Active Start: January 12, 2025 End: January 13, 2025 Team Status: Active Member Role Status Dates Dr. Ray Rapp DO Emergency Provider Active Start: January 12, 2025 No Primary Care Physician Primary Care Provider Active Start: January 12, 2025 Dr. Page Roberto MD Attending Provider Active Start: January 12, 2025 Dr. Page Roberto MD Other Provider Active Start: January 12, 2025 Team Status: Active Member Role Status Dates Dr. Ray Rapp DO Emergency Provider Active Start: January 12, 2025 No Primary Care Physician Primary Care Provider Active Start: January 12, 2025 Dr. Page Roberto MD Attending Provider Active Start: January 12, 2025 Goals (unrecognized section and content) Goals may be documented in a n alternate sectionGoals may be documented in an alternate section Source Comments (unrecognize d section and content) In the event this informatio n is protected by the Federal Confidentiality of Alcohol and Drug Abuse Patient Records regulations: The Federal rules restrict any use of the information to criminally investigate or prosecute any alcohol or drug abuse patient.[facility] INFORMATION SOURCE (unrecogn ized section and content) DATE CREATED AUTHOR 01/14/2025 [facility] DATE CREATED AUTHOR AUTHOR'S ROSARIO LACY 06/12/2025 [facility] FOR RECORDS PERTAINING TO PATIENTS WHO ARE OR HAVE BEEN ENROLLED IN A CHEMICAL DEPENDENCY/SUBSTANCEABUSE PROGRAM, SOME INFORMATION MAY BE OMITTED. This clinical summary was aggregated from multiple sources. Caution should be exercised in using it in the provision of clinical care. This summary normalizes information from multiple sources, and as a consequence, information in this document may materially change the coding, format and clinical context of patient data. In addition, data may be omitted in some cases. CLINICAL DECISIONS SHOULD BE BASED ON THE PRIMARY CLINICAL RECORDS. [employer] provides no warranty or guarantee of the accuracy or completeness of information in this document.
[2025-06-13 18:41] LABS: AST(SGOT) 16 U/L (<=31); Alanine Aminotransfer ALT/SGPT 13 U/L (<=34); Albumin, Serum 4.6 g/dL (3.5-5.0); Alkaline Phosphatase 39 U/L (35-104); Anion Gap 13 (5-15); BUN 16 mg/dL (4-19); BUN/Creat Ratio 21.0 RATIO (10-20); Calcium,Total 9.5 mg/dL (7.6-11.0); Carbon Dioxide 20.0 mmol/L (21.0-32.0); Chloride 103 mmol/L (98-108); Estimated Creatinine Clearance 90.69 ml/min (50-250); Globulin 2.5 g/dL (2.2-4.2); Glucose 94 mg/dL (70-99); Lipase 48 U/L (13-75); Potassium 3.5 mmol/L (3.3-5.1)
[2025-06-13 18:48] LABS: hCG Titer Quant., Serum 1158 mIU/mL (<9 non-preg)
[2025-06-13 18:49] LABS: Red Blood Cells-Urine 0-5 SEEN /hpf (0-5); Squamous Epithelial Cells - UA 0-5 SEEN /hpf (5-10)
[2025-06-13 18:50] VITALS: PULSE 95
--- NOTE | 2025-06-13 19:42 | CM.ED ---
Social Work Date of referral: 06/13/25 Reason for referral: No Primary Care Physician (PCP) on file Referred by: Social Work Identification Patient provided consent to social work visit. Patient's was at bedside. Patient confirmed she is not connected to a PCP. [employer] provided education and a written hand out for the [facility] which patient accepted and expressed appreciation for. Priyanka Liriano, EVAPORATOR HELPER, ROTARY CUTTER
[2025-06-13 21:09] VITALS: BP 112/60; PULSE 95; RESP 16; TEMP 36.6; O2SAT 100
== END 2025-06-13 21:21 | disposition home or self-care (01) ==
PROVIDERS: Emergency Provider Emergency Medicine; Visit Provider Emergency Medicine
DX: O99.891 Other specified diseases and conditions complicating pregnancy (principal); O09.11 Supervision of pregnancy with history of ectopic pregnancy, first trimester; R10.9 Unspecified abdominal pain; Z3A.01 Less than 8 weeks gestation of pregnancy
CPT/HCPCS: 76817; 80053; 81001; 83690; 84702; 85025; 86900; 86901; 96360; 99282

== ENCOUNTER → 2025-06-19 | Outpatient (CLI) | payer MEDICAID, SELFPAY ==
--- NOTE | 2025-06-19 07:26 | US_ITS ---
PROCEDURE: TRANSVAGINAL W/PREG US 06/19/2025 REASON FOR EXAM: F/U ER IMAGING, EARLY TECHNIQUE: Procedure Code: [id number] Modality: US Procedure: TRANSVAGINAL W/PREG US COMPARISON: Prior study dated June 13, 2025. FINDINGS: Comments: LMP: May 09, 2025. Number of Gestational Sacs: 1 Gestational Sac Shape: Normal Number of Fetuses: 1 Heart Rate: 106 beats per minute (average) Yolk Sac: Present and unremarkable. Placenta: Presently not well-visualized Uterine Abnormalities: Maternal uterus is unremarkable. Ovaries / Adnexa: There is a septated cyst in the right ovary measuring 4.4 cm 4.4 cm x 3.7 cm. There is a 1 cm x 0.7 cm 0.8 cm corpus luteum cyst in the left ovary. DIMENSIONS: Parameter Measurement / EGA [place] Rump Length: 2 mm/6 weeks and 0 days Gestational Sac: 7 mm/5 weeks and 3 days Yolk Sac: 3 mm/ ESTIMATED GESTATIONAL AGE: By Ultrasound: 5 weeks and 5 days By LMP: 5 weeks and 6 days ESTIMATED DATE OF DELIVERY: By Ultrasound: February 14, 2026 By LMP: February 13, 2026 US/Transvaginal w/Preg US IMPRESSION: UNREMARKABLE FIRST TRIMESTER ULTRASOUND. 4.4 cm 4.4 cm 3.7 cm septated cyst in the right ovary. Reading Location: [place] [id number]
--- OUTSIDE RECORDS SUMMARY | 2025-06-19 07:27 | XMS RPT_ITS | CCD ---
Author Organization [facility] Care Team Providers Care Staging Technician Name Role Phone Dr. Ray Rapp DO Emergency Provider [phone] Care Physician, No Primary Primary Care Provider Unavailable Pardeep BECKER, Dr. Abel Attending Provider Pardeep BECKER, Dr. Abel Other Provider Unavailable Primary Care Provider Unavailabl e Care Physician, No Primary Primary Care Provider Unavailable Pardeep BECKER, Dr. Abel Attending Provider Dr. Page Goldstein MD Referring Provider [phone] Dr. Ariel East DO Emergency Provider [phone] Page Goldstein Referring Unavailable Care Physician, No Primary Primary Care Unava ilable Page Goldstein Attending Unavailable Care Physician, No Primary Primary Care Unava ilable Ariel East Attending Unavailable Page Goldstein Attending Unavailable Page Goldstein Consulting Unavailable Care Physician, No Primary Primary Care Unava ilable Page Goldstein Attending Unavailable Care Physician, No Primary Primary Care Unava ilable Care Physician, No Primary Referring Unava ilable Page Goldstein Attending Unavailable Care Physician, No Primary Primary Care Unava ilable Page Goldstein Referring Unavailable Page Goldstein Attending Unavailable Care Physician, No Primary Primary Care Unava ilable Care Physician, No Primary Primary Care Unava ilable Page Goldstein Attending Unavailable Care Physician, No Primary Primary Care Unava ilable Page Goldstein Attending Unavailable Medications Completed/Discontinued Medications Medication Drug Class(es) Dates Sig (Normalized) Sig (Original) acetaminophen 325 mg / oxyCODONE hydrochloride 5 mg oral tablet (3 sources) Opioid Agonist Start: 01-12-2025 End: 01-28-2025 Oxycodone-Acetamino phen (Percocet) 5-325 mg tablet Discontinued 1 {tbl} PO Q4H as needed for pain 20 7 0 January 12, 2025 January 28, 2025 1:00pm Ectopic Unspecified ectopic without intrauterine Problems Active Problems Problem Classification Problem Date Documented Date Episodic/Chronic Hemorrhage during ; abruptio placenta; placenta previa (1 source) Bleeding from female genital tract during ; Translations: [Hemorrhage in early , unspecified] 01-12-2025 Episodic Other complications of (1 source) Supervision of with history of ectopic , unspecified trimester; Translations: [Supervision of with history of ectopic , unspecified trimester] Onset: 06-16-2025 Episodic Other and delivery including normal (2 sources) Early stage of ; Translations: [Encounter for supervision of normal , unspecified, unspecified trimester] Onset: 06-14-2025 06-09-2025 Episodic Residual codes; unclassified (1 source) History of laparoscopy; Translations: [Other specified postprocedural states] 01-13-2025 Episodic Comment on above: left salpingectomy Unclassified (1 source) Other specified diseases and conditions complicating ; Translations: [Other specified diseases and conditions complicating ] Onset: 06-15-2025 Past or Other Problems Problem Classification Problem Date Documented Da te Episodic/Chronic Abdominal pain (6 sources) Pain in pelvis; Translations: [Pelvic and perineal pain] Onset: 01-27-2025 01-12-2025 Episodic Ectopic (7 sources) Ectopic ; Translations: [Unspecified ectopic without intrauterine ] Onset: 01-27-2025 01-12-2025 Episodic Results Test Name Value Interpretation Reference Range Facility Absolute lymphocyte countOrd ered By: Ariel East on 06-13-2025 Lymphocytes Auto (Unsp spec) [#/Vol] 2.85 10*3/uL 0.83-4.51 [facility] Absolute neutrophil countOrd ered By: Ariel East on 06-13-2025 Neutrophils (Bld) [#/Vol] 5.5 10*3/uL 2.0-7.7 [facility] Anion gap in Serum or Plasma Ordered By: Ariel East on 06-13-2025 Anion gap [Moles/Vol] 13 mmol/L 5-15 [facility] Automated lymphocyte count a s percentage of total leukocytesOrdered By: Ariel East on 06-13-2025 Lymphocytes/100 WBC Auto (Unsp spec) 30.3 % 19-41 [facility] [id number] 06-13-2025 ABO and Rh group Nom (Bld) Blood group O Rh(D) positive Normal [facility] Comment on above: Performed By: #### Terry 882-1, L501.2450, L700.8000, L500.4050, L100.0100 #### [facility] [address] [place], [address] BUN/creatinine ratioOrdered By: Ariel East on 06-13-2025 Urea nitrogen/Creatinine [Mass ratio] 21.0 mg/mg High 10-20 [facility] Basophil percentageOrdered B y: Ariel East on 06-13-2025 Basophils/100 WBC (Bld) 0.9 % 0-1 [facility] Bilirubin Test strip Ql (U)O rdered By: Ariel East on 06-13-2025 Bilirubin Ql (U) Negative Negative [facility] Bilirubin, totalOrdered By: Ariel East on 06-13-2025 Bilirubin [Mass/Vol] 0.60 mg/dL 0.00-1.30 [facility] CBC W/Diff, Automatedon 06-01 Absolute Lymph 2.85 X10 3/uL Normal 0.83-4.51 [facility] Comment on above: Performed By: #### Terry 882-1, L501.2450, L700.8000, L500.4050, L100.0100 #### [facility] [address] [place], [place], [id number] Absolute Neut 5.5 X10 3/uL Normal 2.0-7.7 [facility] Comment on above: Performed By: #### Terry 882-1, L501.2450, L700.8000, L500.4050, L100.0100 #### [facility] [address] [place], [address] Basophils/100 WBC (Bld) 0.9 % Normal 0-1 [facility] Comment on above: Performed By: #### B 882-1, L501.2450, L700.8000, L500.4050, L100.0100 #### [facility] [address] [place], [address] Eosinophils/100 WBC (Bld) 1.4 % Normal 0-5 [facility] Comment on above: Performed By: #### Terry 882-1, L501.2450, L700.8000, L500.4050, L100.0100 #### [facility] [address] [place], [address] Erythrocyte distribution width (RBC) [Ratio] 11.7 % Normal 11.6-14.6 [facility] Comment on above: Performed By: #### Terry 882-1, L501.2450, L700.8000, L500.4050, L100.0100 #### [facility] [address] [place], [address] Hematocrit (Bld) [Volume fraction] 37.9 % Normal 37-47 [facility] Comment on above: Performed By: #### Terry 882-1, L501.2450, L700.8000, L500.4050, L100.0100 #### [facility] [address] [place], [address] Hemoglobin (Bld) [Mass/Vol] 13.5 g/dL Normal 12.0-15.0 [facility] Comment on above: Performed By: #### B 882-1, L501.2450, L700.8000, L500.4050, L100.0100 #### [facility] [address] [place], [address] IG% 0.200 Normal 0.0-0.9 [facility] Comment on above: Result Comment: IG% - Immature Granulocytes (promyelocytes, myelocytes and metamyelocytes) > 1% indicates that a LEFT SHIFT is Present. Performed By: #### B 882-1, L501.2450, L700.8000, L500.4050, L100.0100 #### [facility] [address] [place], [address] Lymphocytes/100 WBC (Bld) 30.3 % Normal 19-41 [facility] Comment on above: Performed By: #### Terry 882-1, L501.2450, L700.8000, L500.4050, L100.0100 #### [facility] [address] [place], [address] MCH (RBC) [Entitic mass] 31.5 pg Normal 27.0-32.0 [facility] Comment on above: Performed By: #### Terry 882-1, L501.2450, L700.8000, L500.4050, L100.0100 #### [facility] [address] [place], [address] MCHC (RBC) [Mass/Vol] 35.6 g/dL Normal 32-36 [facility] Comment on above: Performed By: #### Terry 882-1, L501.2450, L700.8000, L500.4050, L100.0100 #### [facility] [address] [place], [address] MCV (RBC) [Entitic vol] 88.6 fL Normal 81-99 [facility] Comment on above: Performed By: #### B 882-1, L501.2450, L700.8000, L500.4050, L100.0100 #### [facility] [address] [place], [address] Monocytes/100 WBC (Bld) 8.4 % Normal 0-10 [facility] Comment on above: Performed By: #### Terry 882-1, L501.2450, L700.8000, L500.4050, L100.0100 #### [facility] [address] [place], [address] Neutrophils/100 WBC (Bld) 58.8 % Normal 47-70 [facility] Comment on above: Performed By: #### Terry 882-1, L501.2450, L700.8000, L500.4050, L100.0100 #### [facility] [address] [place], [address] Nucleated RBC (Bld) [#/Vol] 0 10*3/uL Normal 0-5 [facility] Comment on above: Performed By: #### Terry 882-1, L501.2450, L700.8000, L500.4050, L100.0100 #### [facility] [address] [place], [address] Platelet mean volume (Bld) [Entitic vol] 9.5 fL Normal 6.2-12.0 [facility] Comment on above: Performed By: ###Chace Stewart 882-1, L501.2450, L700.8000, L500.4050, L100.0100 #### [facility] [address] [place], [address] Platelets (Bld) [#/Vol] 260 10*3/uL Normal 150-450 [facility] Comment on above: Performed By: ###Chace Stewart 882-1, L501.2450, L700.8000, L500.4050, L100.0100 #### [facility] [address] [place], [address] RBC (Bld) [#/Vol] 4.28 10*6/uL Normal 4.2-5.4 [facility] Comment on above: Performed By: #### B 882-1, L501.2450, L700.8000, L500.4050, L100.0100 #### [facility] [address] [place], [address] RDW SD 37.4 fl Normal 35.1-43.9 [facility] Comment on above: Performed By: #### Terry 882-1, L501.2450, L700.8000, L500.4050, L100.0100 #### [facility] [address] [place], [address] WBC (Bld) [#/Vol] 9.4 10*3/uL Normal 4.4-11.0 [facility] Comment on above: Performed By: #### Terry 882-1, L501.2450, L700.8000, L500.4050, L100.0100 #### [facility] [address] [place], [address] Carbon dioxide, total [Moles /volume] in Central venous bloodOrdered By: Ariel East on 06-13-2025 CO2 [Moles/Vol] 20.0 mmol/L Low 21.0-32.0 [facility] Chloride assayOrdered By: Jose L East on 06-13-2025 Chloride [Moles/Vol] 103 mmol/L 98-108 [facility] Comprehensive Metabolic Prof ilon 06-13-2025 Albumin [Mass/Vol] 4.6 g/dL Normal 3.5-5.0 [facility] Comment on above: Performed By: #### B 882-1, L501.2450, L700.8000, L500.4050, L100.0100 #### [facility] [address] [place], [address] Albumin/Globulin [Mass ratio] 1.9 {ratio} Normal 0.9-2.4 [facility] Comment on above: Performed By: #### Terry 882-1, L501.2450, L700.8000, L500.4050, L100.0100 #### [facility] [address] [place], [address] ALK PHOS 39 U/L Normal 35-104 [facility] Comment on above: Performed By: #### Terry 882-1, L501.2450, L700.8000, L500.4050, L100.0100 #### [facility] [address] [place], [address] ALT [Catalytic activity/Vol] 13 U/L Normal <=34 [facility] Comment on above: Performed By: #### Terry 882-1, L501.2450, L700.8000, L500.4050, L100.0100 #### [facility] [address] [place], [address] AST [Catalytic activity/Vol] 16 U/L Normal <=31 [facility] Comment on above: Performed By: #### Terry 882-1, L501.2450, L700.8000, L500.4050, L100.0100 #### [facility] [address] [place], [address] Bilirubin [Mass/Vol] 0.60 mg/dL Normal 0.00-1.30 [facility] Comment on above: Performed By: #### Terry 882-1, L501.2450, L700.8000, L500.4050, L100.0100 #### [facility] [address] [place], [address] BUN/CRE 21.0 RATIO High 10-20 [facility] Comment on above: Performed By: #### B 882-1, L501.2450, L700.8000, L500.4050, L100.0100 #### [facility] [address] [place], [address] Calcium [Mass/Vol] 9.5 mg/dL Normal 7.6-11.0 [facility] Comment on above: Performed By: #### Terry 882-1, L501.2450, L700.8000, L500.4050, L100.0100 #### [facility] [address] [place], [address] Chloride [Moles/Vol] 103 mmol/L Normal 98-108 [facility] Comment on above: Performed By: #### Terry 882-1, L501.2450, L700.8000, L500.4050, L100.0100 #### [facility] [address] [place], [address] CO2 [Moles/Vol] 20.0 mmol/L Low 21.0-32.0 [facility] Comment on above: Performed By: #### Terry 882-1, L501.2450, L700.8000, L500.4050, L100.0100 #### [facility] [address] [place], [address] Creatinine [Mass/Vol] 0.75 mg/dL Normal 0.70-1.20 [facility] Comment on above: Performed By: #### Terry 882-1, L501.2450, L700.8000, L500.4050, L100.0100 #### [facility] [address] [place], [address] ECRCL 90.69 ml/min Normal 50-250 [facility] Comment on above: Performed By: #### Terry 882-1, L501.2450, L700.8000, L500.4050, L100.0100 #### [facility] [address] [place], [address] GAP 13 Normal 5-15 [facility] Comment on above: Performed By: #### Terry 882-1, L501.2450, L700.8000, L500.4050, L100.0100 #### [facility] [address] [place], [address] GFR/1.73 sq M.predicted among non-blacks MDRD (S/P/Bld) [Vol rate/Area] 114 mL/min/{1.73_m2} Normal >60 [facility] Comment on above: Result Comment: mL/m in/1.73m2 CKD-EPI Creatinine Equation (2020) Performed By: #### Terry 882-1, L501.2450, L700.8000, L500.4050, L100.0100 #### [facility] [address] [place], [address] Globulin (S) [Mass/Vol] 2.5 g/dL Normal 2.2-4.2 [facility] Comment on above: Performed By: ###Chace Stewart 882-1, L501.2450, L700.8000, L500.4050, L100.0100 #### [facility] [address] [place], [address] Glucose [Mass/Vol] 94 mg/dL Normal 70-99 [facility] Comment on above: Performed By: ###Chace Stewart 882-1, L501.2450, L700.8000, L500.4050, L100.0100 #### [facility] [address] [place], [address] Potassium [Moles/Vol] 3.5 mmol/L Normal 3.3-5.1 [facility] Comment on above: Performed By: ###Chace Stewart 882-1, L501.2450, L700.8000, L500.4050, L100.0100 #### [facility] [address] [place], [address] Sodium [Moles/Vol] 136 mmol/L Normal 133-145 [facility] Comment on above: Performed By: ###Chace Stewart 882-1, L501.2450, L700.8000, L500.4050, L100.0100 #### [facility] [address] [place], [address] T PROT 7.0 g/dL Normal 5.9-8.4 [facility] Comment on above: Performed By: #### B 882-1, L501.2450, L700.8000, L500.4050, L100.0100 #### [facility] [address] [place], [address] Urea nitrogen [Mass/Vol] 16 mg/dL Normal 4-19 [facility] Comment on above: Performed By: #### B 882-1, L501.2450, L700.8000, L500.4050, L100.0100 #### [facility] [address] [place], [address] Emergency Department Summary on 06-13-2025 Emergency Department Summary [facility] Medical Records Department [address] [facility] [place] [address] Emergency Department Summary 06/13/25 MR#: [id number] Acct: [id number] Name: YESSICA SOLORZANO Rep #: [id number] : 2000 24 From: Ariel East DO PCP: Care Physician,No Primary Status:DEP ER Location: ED HPI History of Present Illness Chief Complaint: Abd Pain PFSH PFSH Allergy/AdvReac Type Severity Reaction Status Date / Time No Known Allergies Allergy Verified 06/13/25 17:25 Surgical History History of unilateral salpingectomy Social History (Updated 06/13/25 @ 18:09 by Slime Gill) housing: house number of children: 0 current occupational status: employed current occupation: [employer] Smoking Status: Never smoker seatbelt use: always do you feel safe at home: Yes additional social history: [place] EXAM Physical Exam Const Vital Signs: 06/13/25 17:26 06/13/25 18:50 06/13/25 21:09 Temperature 98.3 F 97.8 F Temperature Source Oral Pulse Rate 143 H 95 95 Respiratory Rate 18 16 Blood Pressure 163/104 H 112/60 Blood Pressure Mean 123 77 Pulse Ox 98 100 Oxygen Delivery Method Room Air [facility] Narrative Medical decision making narrative: HISTORY OF PRESENT ILLNESS: Chief complaint: Abdominal pain 24year-old female history of ectopic presents right lower quadrant abdominal pain. States she is 5 weeks . Notes acute onset of right lower belly pain. Notes pain is less severe than recent ectopic. Notes she is a . Denies vaginal bleeding. Denies vomiting. Denies diarrhea. Says her appendix and gallbladder. Denies urinary complaints REVIEW OF SYSTEMS: Pertinent positives: Abdominal pain Pertinent negatives: As per HPI PHYSICAL EXAM: Nursing triage notes reviewed, Vital signs reviewed Constitutional: please see [facility] HENT: MMM Eyes: Pupils equal round and reactive to light, Extraocular muscles intact Neck: No stridor, no JVD, full neck ROM Lungs: Clear to auscultation, No wheezing or rales. No increased work of breathing, no conversational dyspnea, no accessory muscle use, no nasal flaring. No respiratory distress noted Heart: Regular rate and rhythm, No murmurs, No rubs and No gallops, 2+ distal pulses (radial, femoral, posterior tibial) in all extremities Abdomen: Soft, no peritoneal signs, no rigidity, rebound or guarding, no obvious peritoneal signs, no palpable pulsatile abdominal masses, no auscultated abdominal bruit : No CVAT Extremities: No edema Neuro: No new focal neurological deficits, cranial nerves II through XII intact, 5/5 strength in all present extremities. Intact sensation to light touch in all present extremities, 2+ reflexes bilateral patella tendons. Skin: No rash or lesions noted MEDICAL DECISION MAKING: Chief Complaint: please see HPI External records reviewed: Reviewed prior lab and imaging studies. Reviewed prior [employer] surgical report. Factors affecting care: History of ectopic , unilateral salpingectomy Social determinants of health: none History obtained from others: none Consults: OBGYN (Dr. Goldstein) [facility] Narrative: The patient was initially I considered the following differential diagnosis: Ectopic , miscarriage, pain in early I obtained a broad lab and imaging to further determine if the patient was suffering from a life- threatening etiology. Initially treated the patient's pain with Tylenol ALL IMAGES (IF OBTAINED) HAVE BEEN PERSONALLY REVIEWED AND INTERPRETED BY MYSELF. CBC without leukocytosis, severe anemia, no thrombocytopenia. BMP without significant electrolyte normalities, mild metabolic acidosis, no sign of endorgan hypoperfusion, no abnormalities liver function tests Lipase is wnl indicating no pancreatic inflammation. Quantitative hCG is essentially doubling every 2 days consistent with early Urinalysis shows no evidence of urinary inflammation suggestive of UTI Rh+ no need for RhoGAM Transvaginal ultrasound shows possible yolk sac but no pole or obvious adnexal mass. Discussed case with [employer]. Recommended discharge given reassuring ultrasound results and close outpatient follow-up. On reassessment patient's heart rate improved. The patient and/or family, caregivers express understanding. The patient and/or family, caregivers agrees with the plan. Shared decision making: I will have a discussion with the patient and or visitors regarding risk/benefits of further testing or admission. They will be made aware of of the risk/benefits inherent in this decision they will be given the opportunity to voice understanding. Total critical care time today provided was at least 0 minutes. This excludes (more content not included)... Normal [facility] Eosinophil percentageOrdered By: Ariel East on 06-13-2025 Eosinophils/100 WBC (Bld) 1.4 % 0-5 [facility] Erythrocyte distribution wid th ratioOrdered By: Ariel East on 06-13-2025 Erythrocyte distribution width (RBC) [Ratio] 11.7 % 11.6-14.6 [facility] Erythrocyte distribution wid th standard deviationOrdered By: Ariel East on 06-13-2025 Erythrocyte distribution width (RBC) [Ratio] 37.4 fl 35.1-43.9 [facility] Glomerular filtration rate ( GFR) estimation/1.73 sq m using serum, plasma, or whole bOrdered By: Ariel East on 06-13-2025 GFR/1.73 sq M.predicted among non-blacks MDRD (S/P/Bld) [Vol rate/Area] 114 mL/min/{1.73_m2} >60 [facility] Comment on above: mL/min/1.73m2 CKD-EP I Creatinine Equation (2020) Hematocrit Auto (Bld) [Volum e fraction]Ordered By: Ariel East on 06-13-2025 Hematocrit (Bld) [Volume fraction] 37.9 % 37-47 [facility] Hemoglobin measurementOrdere d By: Ariel East on 06-13-2025 Hemoglobin (Bld) [Mass/Vol] 13.5 g/dL 12.0-15.0 [facility] Immature granulocytes/100 WB C Auto (Bld)Ordered By: Ariel East on 06-13-2025 Immature granulocytes/100 WBC (Bld) 0.200 % 0.0-0.9 [facility] Comment on above: IG% - Immature Granu locytes (promyelocytes, myelocytes and metamyelocytes) > 1% indicates that a LEFT SHIFT is Present. Ketones Test strip Ql (U)Ord ered By: Ariel East on 06-13-2025 Ketones Ql (U) Negative Negative [facility] - Chemistry and C hemistry - challengeOrdered By: Ariel East on 06-13-2025 AST [Catalytic activity/Vol] 16 U/L <32 [facility] Lipaseon 06-13-2025 Lipase [Catalytic activity/Vol] 48 U/L Normal 13-75 [facility] Comment on above: Result Comment: Plea se note: LIPASE revised reference range effective 23. New Lipase methodology. Expected to produce lower values than the previous assay method. NEW Reference Range: 13 - 75 U/L Performed By: #### B 882-1, L501.2450, L700.8000, L500.4050, L100.0100 #### [facility] [address] [place] [address], [address] Lipase measurementOrdered By : Ariel East on 06-13-2025 Lipase [Catalytic activity/Vol] 48 U/L 13-75 [facility] Comment on above: Please note:LIPASE r evised reference range effective 23. New Lipase methodology. Expected to produce lower values than the previous assay method. NEW Reference Range: 13 - 75 U/L MCV (mean corpuscular volume ) determinationOrdered By: Ariel East on 06-13-2025 MCV (RBC) [Entitic vol] 88.6 fL 81-99 [facility] Mean corpuscular hemoglobin (MCH) determinationOrdered By: Ariel East on 06-13-2025 MCH (RBC) [Entitic mass] 31.5 pg 27.0-32.0 [facility] Mean corpuscular hemoglobin concentration (MCHC) determinationOrdered By: Ariel East on 06-13-2025 MCHC (RBC) [Mass/Vol] 35.6 g/dL 32-36 [facility] Mean platelet volume determi nationOrdered By: Ariel East on 06-13-2025 Platelet mean volume (Bld) [Entitic vol] 9.5 fL 6.2-12.0 [facility] Microscopic analysis of urin e for red blood cells (RBC)Ordered By: Ariel East on 06-13-2025 Microscopic analysis of urine for red blood cells (RBC) 0-5 SEEN /hpf 0-5 [facility] Monocyte percentageOrdered B y: Ariel East on 06-13-2025 Monocytes/100 WBC (Bld) 8.4 % 0-10 [facility] Mucus LM Ql (Urine sed)Order ed By: Ariel East on 06-13-2025 Mucus Ql (Urine sed) 0 SEEN /hpf [facility] Neutrophil percentageOrdered By: Ariel East on 06-13-2025 Neutrophils/100 WBC (Bld) 58.8 % 47-70 [facility] Nitrite Test strip Ql (U)Ord ered By: Ariel East on 06-13-2025 Nitrite Ql (U) Negative Negative [facility] Nucleated red blood cell per centageOrdered By: Ariel East on 06-13-2025 Nucleated RBC/100 WBC (Bld) [Ratio] 0 % 0-5 [facility] Platelet countOrdered By: Jose L East on 06-13-2025 Platelets (Bld) [#/Vol] 260 10*3/uL 150-450 [facility] Potassium measurement (mass/ volume)Ordered By: Ariel East on 06-13-2025 Potassium (Unsp spec) [Mass/Vol] 3.5 mmol/L 3.3-5.1 [facility] Protein Test strip Ql (U)Ord ered By: Ariel East on 06-13-2025 Protein Ql (U) 15 mg/dl High Negative [facility] RBC Auto (Bld) [#/Vol]Ordere d By: Ariel East on 06-13-2025 RBC (Bld) [#/Vol] 4.28 10*6/uL 4.2-5.4 [facility] Serum creatinine measurement (mass/volume)Ordered By: Ariel East on 06-13-2025 Creatinine [Mass/Vol] 0.75 mg/dL 0.70-1.20 [facility] Serum globulin measurementOr dered By: Ariel East on 06-13-2025 Globulin (S) [Mass/Vol] 2.5 g/dL 2.2-4.2 [facility] Serum glucose measurement (m ass/volume)Ordered By: Ariel East on 06-13-2025 Glucose [Mass/Vol] 94 mg/dL 70-99 [facility] Serum human chorionic gonado tropin detection for pregnancyOrdered By: Ariel East on 06-13-2025 HCG ( test) Ql 1158 mIU/mL High <9 [facility] Comment on above: Gestational Age0.2-1 Week: 5-50 mIU/mL1-2 Weeks: 50-500 mIU/mL2-3 Weeks: 100-5000 mIU/mL3-4 Weeks: 500-10,000 mIU/mL4-5 Weeks:1000-50,000 mIU/mL5-6 Weeks: 10,000-100,000 mIU/mL6-8 Weeks: 15,000-200,000 mIU/mL2-3 Months:10,000-100,000 mIU/mL Serum or plasma alanine mcfadden otransferase (ALT) measurementOrdered By: Ariel East on 06-13-2025 ALT [Catalytic activity/Vol] 13 U/L <35 [facility] Serum or plasma albumin eliana urement (mass/volume)Ordered By: Ariel East on 06-13-2025 Albumin [Mass/Vol] 4.6 g/dL 3.5-5.0 [facility] Serum or plasma albumin/glob ulin mass ratioOrdered By: Ariel East on 06-13-2025 Albumin/Globulin [Mass ratio] 1.9 {ratio} 0.9-2.4 [facility] Serum or plasma alkaline [place] sphatase measurementOrdered By: Ariel East on 06-13-2025 ALP [Catalytic activity/Vol] 39 U/L 35-104 [facility] Serum or plasma calcium eliana urement (mass/volume)Ordered By: Ariel East on 06-13-2025 Calcium [Mass/Vol] 9.5 mg/dL 7.6-11.0 [facility] Serum or plasma urea nitroge n measurement (mass/volume)Ordered By: Ariel East on 06-13-2025 Urea nitrogen [Mass/Vol] 16 mg/dL 4-19 [facility] Sodium levelOrdered By: Kady East on 06-13-2025 Sodium [Moles/Vol] 136 mmol/L 133-145 [facility] Squamous epithelial cells de tection in urine sediment by light microscopyOrdered By: Ariel East on 06-13-2025 Epithelial cells.squamous LM Ql (Urine sed) 0-5 SEEN /hpf 5-10 [facility] Total proteinOrdered By: Ursula East on 06-13-2025 Protein [Mass/Vol] 7.0 g/dL 5.9-8.4 [facility] Transvaginal w/Preg USon Transvaginal w/Preg US [facility] Imaging Services [facility] [place], [place] [address] Transvaginal w/Preg US MR#: [id number] Acct: [id number] Name: YESSICA SOLORZANO Rep #: [id number] : 2000 F 24 From: Mello Matthews MD PCP: Care Physician,No Primary Status: REG ER Study: Transvaginal w/Preg US Date of Exam: 06/13/25 Exam# [id number] Ordering Dr: Ariel East DO PROCEDURE: TRANSVAGINAL W/PREG US 06/13/2025 REASON FOR EXAM: ABDOMINAL PAIN, EARLY RULE OUT ECTOPIC TECHNIQUE: Procedure Code: USTVAGP Modality: US Procedure: TRANSVAGINAL W/PREG US COMPARISON: 01/09/2025 FINDINGS The uterus measures 8.0 x 5.5 x 4.0 cm. A possible early gestational sac is identified within the uterus. The mean sac diameter measures 0.4 cm and would correspond to a gestational age of 5 weeks 1 day. However, a yolk sac but no pole could be identified at this moment. The right ovary measures 5.0 x 5.3 x 3.8 cm and the left ovary measures 3.2 x 1.4 x 1.7 cm. Septated right ovarian cyst measures 4.1 x 4.3 x 3.6 cm. No adnexal masses are seen. There is a minimal amount of free fluid in the cul-de-sac. US/Transvaginal w/Preg US IMPRESSION: Possible small intrauterine gestational sac corresponding to a gestational age of 5 weeks 1 day. A yolk sac but no pole could be identified at this moment. Findings are most likely due to early intrauterine gestation below the limits of sonographic detection. Differential diagnosis includes blighted ovum or pseudo sac of ectopic . The latter is considered less likely given the lack of adnexal mass. Short-term follow-up sonography and serial serum beta HCG levels is recommended. Reading [facility] CC: Dr. Ariel East, DO; No Primary Care Physician Extraction Machine Operator: Signed Normal [facility] Urinalysis, Completeon 06-13 EPI,SQUAMOUS 0-5 SEEN Normal 5-10 [facility] Comment on above: Order Comment: CLEAN CATCH Performed By: #### L 400.0001 #### [facility] [address] [place], [address] RBC 0-5 SEEN Normal 0-5 [facility] Comment on above: Order Comment: CLEAN CATCH Performed By: #### L 400.0001 #### [facility] [address] [place], [address] WBC 0-5 SEEN Normal 0-5 [facility] Comment on above: Order Comment: CLEAN CATCH Performed By: #### L 400.0001 #### [facility] [address] [place], [address] BACTERIA 0 SEEN Normal None Seen [facility] Comment on above: Order Comment: CLEAN CATCH Performed By: #### L 400.0001 #### [facility] [address] [place], [address] Mucus Ql (Urine sed) 0 SEEN Normal [facility] Comment on above: Order Comment: CLEAN CATCH Performed By: #### L 400.0001 #### [facility] [address] [place], [place], [phone] Urine clarityOrdered By: Ursula East on 06-13-2025 Clarity (U) Clear Clear [facility] Urine color determinationOrd ered By: Ariel East on 06-13-2025 Color (U) Straw Yellow [facility] Urine glucose detectionOrder ed By: Ariel East on 06-13-2025 Glucose Ql (U) Normal mg/dl Normal [facility] Urine leukocyte esterase det ection by dipstickOrdered By: Ariel East on 06-13-2025 Leukocyte esterase Test strip Ql (U) Negative Negative [facility] Urine pHOrdered By: Ariel fierro on 06-13-2025 pH (U) 6.0 [pH] 5.0 - 8.0 [facility] Urine sediment bacteria coun t by microscopy (number/high power field)Ordered By: Ariel East on 06-13-2025 Bacteria LM.HPF (Urine sed) [#/Area] 0 /[HPF] None Seen [facility] Urine specific gravity measu rementOrdered By: Ariel East on 06-13-2025 Specific gravity (U) [Rel density] 1.010 1.002-1.030 [facility] Urine urobilinogen measureme ntOrdered By: Ariel East on 06-13-2025 Urobilinogen Ql (U) Normal mg/dl Normal [facility] White blood cell (WBC) count Ordered By: Ariel East on 09-13-2025 WBC (Bld) [#/Vol] 9.4 10*3/uL 4.4-11.0 [facility] White blood cell countOrdere d By: Ariel East on 06-13-2025 White blood cell count 0-5 SEEN /hpf 0-5 [facility] hCG Titer Quant., Serumon HCG QUANT. 1158 mIU/mL High <9 non-preg [facility] Comment on above: Result Comment: Gest ational Age 0.2-1 Week: 5-50 mIU/mL 1-2 Weeks: 50-500 mIU/mL 2-3 Weeks: 100-5000 mIU/mL 3-4 Weeks: 500-10,000 mIU/mL 4-5 Weeks:1000-50,000 mIU/mL 5-6 Weeks: 10,000-100,000 mIU/mL 6-8 Weeks: 15,000-200,000 mIU/mL 2-3 Months:10,000-100,000 mIU/mL Performed By: #### B 882-1, L501.2450, L700.8000, L500.4050, L100.0100 #### [facility] [address] [place], [address] HH, Hemoglobin AND Hematocri ton 06-11-2025 Hematocrit (Bld) [Volume fraction] 36.3 % Low 37-47 [facility] Comment on above: Result Comment: MORELIA BUSBY, REG PREV. CROSSED OVER ORDER Performed By: #### L 100.0600 #### [facility] [address] [place], [place], [phone] Hemoglobin (Bld) [Mass/Vol] 13.0 g/dL Normal 12.0-15.0 [facility] Comment on above: Result Comment: MORELIA BUSBY, REG PREV. CROSSED OVER ORDER Performed By: #### L 100.0600 #### [facility] [address] [place], [place], [phone] Serum human chorionic gonado tropin detection for pregnancyOrdered By: Page Goldstein on 06-11-2025 HCG ( test) Ql 618 mIU/mL High <9 [facility] Comment on above: Gestational Age0.2-1 Week: 5-50 mIU/mL1-2 Weeks: 50-500 mIU/mL2-3 Weeks: 100-5000 mIU/mL3-4 Weeks: 500-10,000 mIU/mL4-5 Weeks:1000-50,000 mIU/mL5-6 Weeks: 10,000-100,000 mIU/mL6-8 Weeks: 15,000-200,000 mIU/mL2-3 Months:10,000-100,000 mIU/mL hCG Titer Quant., Serumon HCG QUANT. 618 mIU/mL High <9 non-preg [facility] Comment on above: Result Comment: Gest ational Age 0.2-1 Week: 5-50 mIU/mL 1-2 Weeks: 50-500 mIU/mL 2-3 Weeks: 100-5000 mIU/mL 3-4 Weeks: 500-10,000 mIU/mL 4-5 Weeks:1000-50,000 mIU/mL 5-6 Weeks: 10,000-100,000 mIU/mL 6-8 Weeks: 15,000-200,000 mIU/mL 2-3 Months:10,000-100,000 mIU/mL Performed By: #### B 882-1, L501.2450, L700.8000, L500.4050, L100.0100 #### [facility] [address] [place] [address], [id number] Serum human chorionic gonado tropin detection for pregnancyOrdered By: Page Goldstein on 06-09-2025 HCG ( test) Ql 273 mIU/mL High <9 [facility] Comment on above: Gestational Age0.2-1 Week: 5-50 mIU/mL1-2 Weeks: 50-500 mIU/mL2-3 Weeks: 100-5000 mIU/mL3-4 Weeks: 500-10,000 mIU/mL4-5 Weeks:1000-50,000 mIU/mL5-6 Weeks: 10,000-100,000 mIU/mL6-8 Weeks: 15,000-200,000 mIU/mL2-3 Months:10,000-100,000 mIU/mL hCG Titer Quant., Serumon HCG QUANT. 273 mIU/mL High <9 non-preg [facility] Comment on above: Result Comment: Gest ational Age 0.2-1 Week: 5-50 mIU/mL 1-2 Weeks: 50-500 mIU/mL 2-3 Weeks: 100-5000 mIU/mL 3-4 Weeks: 500-10,000 mIU/mL 4-5 Weeks:1000-50,000 mIU/mL 5-6 Weeks: 10,000-100,000 mIU/mL 6-8 Weeks: 15,000-200,000 mIU/mL 2-3 Months:10,000-100,000 mIU/mL Performed By: #### L 700.8000 #### [facility] [address] [place], [address] Abattoir Supervisor Office Visit Reporton 01-28-2025 Abattoir Supervisor Office Visit Report [facility] [address], [address] [place] [address] OFFICE VISIT Date of Service: 01/28/25 MR#: [id number] Acct: [id number] Name: YESSICA SOLORZANO Rep #: [id number] : 2000 Provider: Dr. Page murray MD Age/Sex: 24/F Location[place] [facility] [place] Status: Signed Intake Vital Signs 01/12/25 22:56 01/28/25 12:59 Height 5 ft 3 in 5 ft 3 in Weight: 124 lb 6 oz BMI 22.0 BP 142/88 H Intake Visit Reasons: 2wk post op Audio Video Mechanic Required: No Is patient in pain?: No Allergies No Known Allergies Allergy (Verified 01/28/25 13:00) Post menopausal: No Patient : No : No PFSH Surgical History (Updated 01/13/25 @ 08:33 by Leslie Pinon) History of unilateral salpingectomy Social History (Updated 01/28/25 @ 13:02 by Cherri Kumar) number of children: 0 current occupational status: employed current occupation: [employer] Smoking Status: Never smoker seatbelt use: always [...] Date Name GA/Weeks Outcome Route Bth Weight Infant Gen Labor Lgth Anesthesia Del Locatn Provider [...] consider serial hcgs 01/28/25 1345 Date Page Vivas Signature: Date (if applicable) CC: Normal [facility] MR/POSTOP.Lupe 01-13-2025 MR/POSTOP.[facility] Medical Records Department [address] [place] [address] Anesthesia Postop Eval I 01/13/2552 MR#: [id number] Acct: [id number] Name: YESSICA SOLORZANO Rep #: [id number] : 2000 From: Ravinder Garcia MD PCP: Care Physician,No Primary Status:REG SDC Y Race: C [place] [facility] [place]: Postop Eval I Current Vital Signs [...] MD Cosigner Signature: Date CC: Signed Normal [facility] MR/ZXMONAJR0ep 01-13-2025 [facility] Medical Records Department [address] [place] [address] Anesthesia Postop Eval II 01/13/2554 MR#: [id number] Acct: [id number] Name: YESSICA SOLORZANO Rep #: [id number] : 2000 From: Ravinder Garcia MD PCP: Care Physician,No Primary Status:REG SD Y Race: C [place] [facility] [place] Postop Eval I Sum Postop Eval [...] Ravinder Vivas Signature: Date CC: Signed Normal [facility] Surgery Specimen Level [place] 01-13-2025 Surgery Specimen Level IV ----- Patient Age/Sex Location Account Attending Physician YESSICA SOLORZANO [place] [facility] [id number]. Page Goldstein MD Specimen: [id number] Received: 01/13/25 Status: RAJWINDER Lawson Num: [id number] Spec Type: ECTOPIC Subm Dr: Dr. Page Goldstein MD HEADER OPERATION: Laparoscopic, removal ectopic, left [...] possible chorionic villi. No parts are discovered. [employer] sections are submitted in A1-3 (fimbriated end in A3). [facility] 01/16/2025 CPT:25291 Patient Age/Sex Location Account Attending Physician YESSICA SOLORZANO 24/ [facility] [id number]. Page Goldstein MD Signed (signatur e on file) Dr. Sirena Mosqueda MD 01/16/25 1726 Normal [facility] Comment on above: Performed By: #### P AKIRA #### [facility] [address] [place], [place], [phone] [facility] Blood Type, Patienton 01-12-2025 ABO and Rh group Nom (Bld) Blood group O Rh(D) positive Normal [facility] Comment on above: Performed By: #### B 882-1, L501.2450, L700.8000, L500.4050, L100.0100 #### [facility] [address] [place], [place], [phone] Absolute neutrophil countOrd ered By: Ray Rapp on 01-12-2025 Neutrophils (Bld) [#/Vol] 5.8 10*3/uL 2.0-7.7 [facility] Anion gap in Serum or Plasma Ordered By: Ray Rapp on 01-12-2025 Anion gap [Moles/Vol] 13 mmol/L 5-15 [facility] Automated blood erythrocyte countOrdered By: Ray Rapp on 01-12-2025 RBC (Bld) [#/Vol] 4.36 10*6/uL Normal 4.2-5.4 [facility] Comment on above: Performed By: #### B 882-1, L501.2450, L700.8000, L500.4050, L100.0100 #### [facility] [address] [place], [place], [phone] Automated blood hematocrit ( percentage)Ordered By: Ray Rapp on 01-12-2025 Hematocrit (Bld) [Volume fraction] 37.7 % Normal 37-47 [facility] Comment on above: Performed By: #### B 882-1, L501.2450, L700.8000, L500.4050, L100.0100 #### [facility] [address] [place], [address] Automated lymphocyte count a s percentage of total leukocytesOrdered By: Ray Rapp on 01-12-2025 Lymphocytes/100 WBC (Bld) 28.5 % Normal 19-41 [facility] Comment on above: Performed By: #### B 882-1, L501.2450, L700.8000, L500.4050, L100.0100 #### [facility] [address] [place], [place], [phone] [id number] 01-12-2025 ABO and Rh group Nom (Bld) TNP Normal [facility] Comment on above: Performed By: #### B 882-1, L501.2450, L700.8000, L500.4050, L100.0100 #### [facility] [address] [place], [address] BUN/creatinine ratioOrdered By: Ray Rapp on 01-12-2025 Urea nitrogen/Creatinine [Mass ratio] 12.6 mg/mg 10- [facility] Basic Metabolic Profile (BMP )on 01-12-2025 BUN/CRE 12.6 RATIO Normal 07-20 [facility] Comment on above: Performed By: #### Terry 882-1, L501.2450, L700.8000, L500.4050, L100.0100 #### [facility] [address] [place], [address] Calcium [Mass/Vol] 9.1 mg/dL Normal 7.6-11.0 [facility] Comment on above: Performed By: #### Terry 882-1, L501.2450, L700.8000, L500.4050, L100.0100 #### [facility] [address] [place], [address] Chloride [Moles/Vol] 102 mmol/L Normal 98-108 [facility] Comment on above: Performed By: #### Terry 882-1, L501.2450, L700.8000, L500.4050, L100.0100 #### [facility] [address] [place], [address] CO2 [Moles/Vol] 21.3 mmol/L Normal 21.0-32.0 [facility] Comment on above: Performed By: #### Terry 882-1, L501.2450, L700.8000, L500.4050, L100.0100 #### [facility] [address] [place], [address] Creatinine [Mass/Vol] 0.72 mg/dL Normal 0.70-1.20 [facility] Comment on above: Performed By: #### Terry 882-1, L501.2450, L700.8000, L500.4050, L100.0100 #### [facility] [address] [place], [address] ECRCL 98.81 ml/min Normal 50-250 [facility] Comment on above: Performed By: #### Terry 882-1, L501.2450, L700.8000, L500.4050, L100.0100 #### [facility] [address] [place], [address] GAP 13 Normal 5-15 [facility] Comment on above: Performed By: #### Terry 882-1, L501.2450, L700.8000, L500.4050, L100.0100 #### [facility] [address] [place], [address] GFR/1.73 sq M.predicted among non-blacks MDRD (S/P/Bld) [Vol rate/Area] 118 mL/min/{1.73_m2} Normal >60 [facility] Comment on above: Result Comment: mL/m in/1.73m2 CKD-EPI Creatinine Equation (2020) Performed By: #### Terry 882-1, L501.2450, L700.8000, L500.4050, L100.0100 #### [facility] [address] [place], [address] Glucose [Mass/Vol] 90 mg/dL Normal 70-99 [facility] Comment on above: Performed By: #### Terry 882-1, L501.2450, L700.8000, L500.4050, L100.0100 #### [facility] [address] [place], [address] Potassium [Moles/Vol] 3.4 mmol/L Normal 3.3-5.1 [facility] Comment on above: Performed By: #### Terry 882-1, L501.2450, L700.8000, L500.4050, L100.0100 #### [facility] [address] [place], [address] Sodium [Moles/Vol] 136 mmol/L Normal 133-145 [facility] Comment on above: Performed By: #### Terry 882-1, L501.2450, L700.8000, L500.4050, L100.0100 #### [facility] [address] [place], [address] Urea nitrogen [Mass/Vol] 9 mg/dL Normal 4-19 [facility] Comment on above: Performed By: ###Chace Stewart 882-1, L501.2450, L700.8000, L500.4050, L100.0100 #### [facility] [address] [place], [address] Basophil percentageOrdered B y: Ray Rapp on 01-12-2025 Basophils/100 WBC (Bld) 0.8 % Normal 0-1 [facility] Comment on above: Performed By: #### Terry 882-1, L501.2450, L700.8000, L500.4050, L100.0100 #### [facility] [address] [place], [address] Bilirubin Test strip Ql (U)O rdered By: Ray Rapp on 01-12-2025 Bilirubin Ql (U) Negative Negative [facility] CBC W/Diff, Automatedon 12-30 Absolute Lymph 2.66 X10 3/uL Normal 0.83-4.51 [facility] Comment on above: Performed By: #### Terry 882-1, L501.2450, L700.8000, L500.4050, L100.0100 #### [facility] [address] [place], [address] Absolute Neut 5.8 X10 3/uL Normal 2.0-7.7 [facility] Comment on above: Performed By: ###Chace Stewart 882-1, L501.2450, L700.8000, L500.4050, L100.0100 #### [facility] [address] [place], [address] IG% 0.400 Normal 0.0-0.9 [facility] Comment on above: Result Comment: IG% - Immature Granulocytes (promyelocytes, myelocytes and metamyelocytes) > 1% indicates that a LEFT SHIFT is Present. Performed By: #Sherry Stewart 882-1, L501.2450, L700.8000, L500.4050, L100.0100 #### [facility] [address] [place], [address] Nucleated RBC (Bld) [#/Vol] 0 10*3/uL Normal 0-5 [facility] Comment on above: Performed By: #Sherry Stewart 882-1, L501.2450, L700.8000, L500.4050, L100.0100 #### [facility] [address] [place], [address] RDW SD 41.7 fl Normal 35.1-43.9 [facility] Comment on above: Performed By: Rachel Stewart 882-1, L501.2450, L700.8000, L500.4050, L100.0100 #### [facility] [address] [place], [address] CNOVon 01-12-2025 CNOV Office Visit (UCWSTR) ---- YESSICA SOLORZANO ([id number]) 2000 F Date Time Provider Department 01/12/25 5:00 PM NETTE MILLER [facility] During your visit today, we recorded [...] Status:Closed by NETTE MILLER on 01/12/25 Normal [facility] Carbon dioxide, total [Moles /volume] in Central venous bloodOrdered By: Ray Rapp on 01-12-2025 CO2 [Moles/Vol] 21.3 mmol/L 21.0-32.0 [facility] Chloride assayOrdered By: Richardson Rapp on 01-12-2025 Chloride [Moles/Vol] 102 mmol/L 98-108 [facility] Discharge Instructionon 12-30 Discharge Instruction [facility] Medical Records Department [address] [place] [address] Instructions for Home/Discharge Instructions 01/12/25 2321 MR#: [id number] Acct: [id number] Name: YESSICA SOLORZANO Rep #: [id number] : 2000 From: Page Goldstein MD PCP: Care Physician,No Primary Status:REG SDC [...] applicable. Discharge Plan Admission Attending Provider: Page Goldstein Primary Care Provider: Care Physician,No Primary Instructions Print Language: [place] Discharge Orders/Prescription s Prescriptions: New oxycodone-acetamino phen [Percocet] 5-325 mg tablet 1 tab PO Q4H PRN (Reason: pain) 7 Days Qty: 20 0RF Referrals / Follow Up: Care Physician,No Primary [Primary Care Provider] - Disposition Disposition (needs filled in before D/C Order can be placed): Home, Self Care 01/13/25 003 Page Goldstein MD CC: No Primary Care Physician Signed Normal [facility] Emergency Department Summary on 01-12-2025 Emergency Department Summary [facility] Medical Records Department [address] [place] [address] Emergency Department Summary 01/12/25 MR#: [id number] Acct: [id number] Name: YESSICA SOLORZANO Rep #: [id number] : 2000 24 From: Ray Rapp DO PCP: Care Physician,No Primary Status:REG SDC Location: SDC HPI HPI - Female History [...] but has not followed up with any INSERTER PROMOTIONAL ITEM yet. Patient states this is her first [...] % (Auto) 61.7 Lymph % (Auto) 28.5 [place] % (Auto) 7.6 Eos % (Auto) 1.0 Baso % (Auto) 0.8 Absolute Neuts (auto) 5.8 Absolute Lymphs (auto) 2.66 Nucleated RBC % 0 Sodium 136 (more content not included)... Normal [facility] Eosinophil percentageOrdered By: Ray Rapp on 01-12-2025 Eosinophils/100 WBC (Bld) 1.0 % Normal 0-5 [facility] Comment on above: Performed By: #### B 882-1, L501.2450, L700.8000, L500.4050, L100.0100 #### [facility] [address] [place], [address] Epithelial cells.squamous LM Ql (Urine sed)Ordered By: Ray Rapp on 01-12-2025 Epithelial cells.squamous LM.HPF (Urine sed) [#/Area] 0 /[HPF] 5-10 [facility] Erythrocyte distribution wid th (RBC) [Ratio]Ordered By: Ray Rapp on 01-12-2025 Erythrocyte distribution width (RBC) [Entitic vol] 41.7 fL 35.1-43.9 [facility] Erythrocyte distribution wid th ratioOrdered By: Ray Rapp on 01-12-2025 Erythrocyte distribution width (RBC) [Ratio] 13.2 % Normal 11.6-14.6 [facility] Comment on above: Performed By: #### B 882-1, L501.2450, L700.8000, L500.4050, L100.0100 #### [facility] [address] [place], [place], [address] Estimation of creatinine vita aranceOrdered By: Ray Rapp on 01-12-2025 Estimated Creatinine Clearance Calc 98.81 ml/min 50-250 [facility] GFR/1.73 sq M.predicted elvis g non-blacks MDRD (S/P/Bld) [Vol rate/Area]Ordered By: Ray Rapp on 01-12-2025 Estimated GFR (MDRD) Non-Af Amer 118 >60 [facility] Comment on above: mL/min/1.73m2 CKD-EP I Creatinine Equation (2020) Glucose Ql (U)Ordered By: Richardson Rapp on 01-12-2025 Urine Glucose (UA) Normal mg/dl Normal [facility] H AND P Exam - OB/GYNon 12-30 H&P Exam - INSERTER PROMOTIONAL ITEM [facility] Medical Records Department [address] [place] [address] H P Exam - INSERTER PROMOTIONAL ITEM 01/12/25 2314 MR#: [id number] Acct: [id number] Name: YESSICA SOLORZANO Rep #: [id number] : 2000 From: Page Goldstein MD PCP: Care Physician,No Primary Status[place] [facility] [place] [facility] HPI - General HPI Narrative YESSICA SOLORZANO, [...] Method Room Air Room Air Room Air 04/14/25 22:56 01/12/25 23:01 Temperature 98.7 F 98.7 [...] and wis (more content not included)... Normal [facility] HCG ( test) QlOrder ed By: Ray Rapp on 01-12-2025 Human Chorionic Gonadotropin, Quant 3703 mIU/mL High <9 [facility] Comment on above: Gestational Age0.2-1 Week: 5-50 mIU/mL1-2 Weeks: 50-500 mIU/mL2-3 Weeks: 100-5000 mIU/mL3-4 Weeks: 500-10,000 mIU/mL4-5 Weeks:1000-50,000 mIU/mL5-6 Weeks: 10,000-100,000 mIU/mL6-8 Weeks: 15,000-200,000 mIU/mL2-3 Months:10,000-100,000 mIU/mL Hemoglobin measurementOrdere d By: Ray Rapp on 01-12-2025 Hemoglobin (Bld) [Mass/Vol] 13.5 g/dL Normal 12.0-15.0 [facility] Comment on above: Performed By: #### Terry 882-1, L501.2450, L700.8000, L500.4050, L100.0100 #### [facility] [address] [place], [place], [phone] Immature granulocytes/100 WB C Auto (Bld)Ordered By: Ray Rapp on 01-12-2025 Immature granulocytes/100 WBC (Bld) 0.400 % 0.0-0.9 [facility] Comment on above: IG% - Immature Granu locytes (promyelocytes, myelocytes and metamyelocytes) > 1% indicates that a LEFT SHIFT is Present. Ketones Test strip Ql (U)Ord ered By: Ray Rapp on 01-12-2025 Ketones Ql (U) 50 mg/dl High Negative [facility] Lymphocytes Auto (Unsp spec) [#/Vol]Ordered By: Ray Rapp on 01-12-2025 Lymphocytes (Bld) [#/Vol] 2.66 10*3/uL 0.83-4.5 1 [facility] MCV (mean corpuscular volume ) determinationOrdered By: Ray Rapp on 01-12-2025 MCV (RBC) [Entitic vol] 86.5 fL Normal 81-99 [facility] Comment on above: Performed By: #### B 882-1, L501.2450, L700.8000, L500.4050, L100.0100 #### [facility] [address] [place], [place], [phone] Mean corpuscular hemoglobin (MCH) determinationOrdered By: Ray Rapp on 01-12-2025 MCH (RBC) [Entitic mass] 31.0 pg Normal 27.0-32.0 [facility] Comment on above: Performed By: #### Terry 882-1, L501.2450, L700.8000, L500.4050, L100.0100 #### [facility] [address] [place], [place], [phone] Mean corpuscular hemoglobin concentration (MCHC) determinationOrdered By: Ray Rapp on 01-12-2025 MCHC (RBC) [Mass/Vol] 35.8 g/dL Normal 32-36 [facility] Comment on above: Performed By: #### Terry 882-1, L501.2450, L700.8000, L500.4050, L100.0100 #### [facility] [address] [place], [place], [phone] Mean platelet volume determi nationOrdered By: Ray Rapp on 01-12-2025 Platelet mean volume (Bld) [Entitic vol] 9.3 fL Normal 6.2-12.0 [facility] Comment on above: Performed By: #### Terry 882-1, L501.2450, L700.8000, L500.4050, L100.0100 #### [facility] [address] [place], [place], [phone] Microscopic analysis of urin e for red blood cells (RBC)Ordered By: Ray Rapp on 01-12-2025 Urine RBC 0-5 SEEN /hpf 0-5 [facility] Monocyte percentageOrdered B y: Ray Rapp on 01-12-2025 Monocytes/100 WBC (Bld) 7.6 % Normal 0-10 [facility] Comment on above: Performed By: #### Terry 882-1, L501.2450, L700.8000, L500.4050, L100.0100 #### [facility] [address] [place], [place], [address] Mucus LM Ql (Urine sed)Order ed By: Ray Rapp on 01-12-2025 Mucus Ql (Urine sed) 0 SEEN /hpf [facility] Neutrophil percentageOrdered By: Ray Rapp on 01-12-2025 Neutrophils/100 WBC (Bld) 61.7 % Normal 47-70 [facility] Comment on above: Performed By: #### B 882-1, L501.2450, L700.8000, L500.4050, L100.0100 #### [facility] [address] [place], [place], [address] Nitrite Test strip Ql (U)Ord ered By: Ray Rapp on 01-12-2025 Nitrite Ql (U) Negative Negative [facility] Nucleated red blood cell per centageOrdered By: Ray Rapp on 01-12-2025 Nucleated RBC/100 WBC (Bld) [Ratio] 0 % 0-5 [facility] Operative Reporton Operative Report [facility] Medical Records Department [address] [place] [address] Operative Report 01/12/25 2320 MR#: [id number] Acct: [id number] Name: YESSICA SOLORZANO Yomaira Rep #: [id number] : 2000 24 From: Page Goldstein MD PCP: Care Physician,No Primary Status[place] [facility] [place] [facility] Problems Associated Problem List Diagnoses (1) Ectopic : Procedures Urinary/Genital 52xxx-59xxx: 27303 Treat ectopic lapro w/ salpingectomy Operative Report (Standard) Operative Information Date of Procedure: 01/12/25 Pre-Operative Diagnosis: see problem list Post-Operative Diagnosis: same ruptured left ectopic Surgery/Procedure Performed: laparoscopic left salpingectomy extra hand: Yes Flatwork Presser: Gloria Shrestha Tasks completed by housekeeper and laundry assistant: Opening closing, Altering tissue and Insert Trochanter Additional hearing aid assistant?: No Type of Anesthesia: General RN [...] Cosigner Signature (if applicable): CC: Dr. Page Goldstein MD; No Primary Care Physician Signed Normal [facility] Platelet countOrdered By: Richardson Rapp on 01-12-2025 Platelets (Bld) [#/Vol] 242 10*3/uL Normal 150-450 [facility] Comment on above: Performed By: #### B 882-1, L501.2450, L700.8000, L500.4050, L100.0100 #### [facility] [address] [place], [place], [address] Potassium (Unsp spec) [Mass/ Vol]Ordered By: Ray Rapp on 01-12-2025 Potassium [Moles/Vol] 3.4 mmol/L 3.3-5.1 [facility] Protein Test strip Ql (U)Ord ered By: Ray Rapp on 01-12-2025 Protein Ql (U) 15 mg/dl High Negative [facility] Serum creatinine measurement (mass/volume)Ordered By: Ray Rapp on 01-12-2025 Creatinine [Mass/Vol] 0.72 mg/dL 0.70-1.20 [facility] Serum glucose measurement (m ass/volume)Ordered By: Ray Rapp on 01-12-2025 Glucose [Mass/Vol] 90 mg/dL 70-99 [facility] Serum or plasma calcium eliana urement (mass/volume)Ordered By: Ray Rapp on 01-12-2025 Calcium [Mass/Vol] 9.1 mg/dL 7.6-11.0 [facility] Serum or plasma urea nitroge n measurement (mass/volume)Ordered By: Ray Rapp on 01-12-2025 Urea nitrogen [Mass/Vol] 9 mg/dL 4-19 [facility] Sodium levelOrdered By: Ray Rapp on 01-12-2025 Sodium [Moles/Vol] 136 mmol/L 133-145 [facility] Transvaginal w/Preg USon Transvaginal w/Preg US [facility] Imaging Services [address] [place], [place] [address] Transvaginal w/Preg US MR#: [id number] Acct: [id number] Name: YESSICA SOLORZANO Rep #: [id number] : 2000 F 24 From: Nelson Batista MD PCP: Care Physician,No Primary Status: REG ER Study: Transvaginal w/Preg US Date of Exam: 01/12/25 Exam# [id number] Ordering Dr: Ray Rapp DO PROCEDURE: TRANSVAGINAL [...] notified on 01/12/2025 at 21:00 Reading Location: [id number] CC: Dr. Ray Rapp, DO; No Primary Care Physician Extraction Machine Operator: Signed Normal [facility] Urinalysis, Completeon 01-12 EPI,SQUAMOUS 0-5 SEEN Normal 5-10 [facility] Comment on above: Order Comment: CLEAN CATCH Performed By: #### L 400.0001 #### [facility] [address] [place], [address] RBC 0-5 SEEN Normal 0-5 [facility] Comment on above: Order Comment: CLEAN CATCH Performed By: #### L 400.0001 #### [facility] [address] [place], [address] BACTERIA 0 SEEN Normal None Seen [facility] Comment on above: Order Comment: CLEAN CATCH Performed By: #### L 400.0001 #### [facility] [address] [place], [address] Mucus Ql (Urine sed) 0 SEEN Normal [facility] Comment on above: Order Comment: CLEAN CATCH Performed By: #### L 400.0001 #### [facility] [address] [place], [address] WBC 0 SEEN Normal 0-5 [facility] Comment on above: Order Comment: CLEAN CATCH Performed By: #### L 400.0001 #### [facility] [address] [place], [place], [phone] Urine blood detectionOrdered By: Ray Rapp on 01-12-2025 Urine Occult Blood 250 /ul High Negative [facility] Urine clarityOrdered By: Chelsey Rapp on 01-12-2025 Clarity (U) Clear Clear [facility] Urine color determinationOrd ered By: Ray Rapp on 01-12-2025 Color (U) Straw Yellow [facility] Urine leukocyte esterase det ection by dipstickOrdered By: Ray Rapp on 01-12-2025 Leukocyte esterase Test strip Ql (U) Negative Negative [facility] Urine pHOrdered By: Ray betancourt on 01-12-2025 pH (U) 6.5 [pH] 5.0 - 8.0 [facility] Urine sediment bacteria coun t by microscopy (number/high power field)Ordered By: Ray Rapp on 01-12-2025 Bacteria LM.HPF (Urine sed) [#/Area] 0 /[HPF] None Seen [facility] Urine specific gravity measu rementOrdered By: Ray Rapp on 01-12-2025 Specific gravity (U) [Rel density] 1.010 1.002-1.030 [facility] Urobilinogen Ql (U)Ordered B y: Ray Rapp on 01-12-2025 Urine Urobilinogen Normal mg/dl Normal [facility] White blood cell (WBC) count Ordered By: Ray Rapp on 01-12-2025 WBC (Bld) [#/Vol] 9.3 10*3/uL Normal 4.4-11.0 [facility] Comment on above: Performed By: #### B 882-1, L501.2450, L700.8000, L500.4050, L100.0100 #### [facility] [address] [place], [place], [phone] White blood cell countOrdere d By: Ray Rapp on 01-12-2025 Urine WBC 0 SEEN /hpf 0-5 [facility] hCG Titer Quant., Serumon HCG QUANT. 3703 mIU/mL High <9 non-preg [facility] Comment on above: Result Comment: Gest ational Age 0.2-1 Week: 5-50 mIU/mL 1-2 Weeks: 50-500 mIU/mL 2-3 Weeks: 100-5000 mIU/mL 3-4 Weeks: 500-10,000 mIU/mL 4-5 Weeks:1000-50,000 mIU/mL 5-6 Weeks: 10,000-100,000 mIU/mL 6-8 Weeks: 15,000-200,000 mIU/mL 2-3 Months:10,000-100,000 mIU/mL Performed By: #### B 882-1, L501.2450, L700.8000, L500.4050, L100.0100 #### [facility] [address] [place], [place], [phone] Vital Signs Date Time Vital Sign Value Performing Clinician Faci lity 06-13-2025 21:09-0400 Body temperature 97.8 [degF] No Primary Care Physician [facility] 06-13-2025 21:09-0400 Diastolic blood pressure 60 mm[Hg] No Primary Care Physician [facility] 06-13-2025 21:09-0400 Heart rate 95 /min No Primary Care Physician [facility] 06-13-2025 21:09-0400 Respiratory rate 16 /min No Primary Care Physician [facility] 06-13-2025 21:09-0400 SaO2% (BldA) [Mass fraction] 100 % No Primary Care Physician [facility] 06-13-2025 21:09-0400 Systolic blood pressure 112 mm[Hg] No Primary Care Physician [facility] 06-13-2025 17:26-0400 Body height 157.48 cm No Primary Care Physician [facility] 06-13-2025 17:26-0400 Body mass index (BMI) [Ratio] 22 kg/m2 No Primary Care Physician [facility] 06-13-2025 17:26-0400 Body weight 54.7 kg No Primary Care Physician [facility] 01-13-2025 01:55-0400 Body temperature 97.8 [degF] Dr. Ray Rapp DO Work Phone: 4([phone])986-506343 [place] [address] 01-13-2025 01:55-0400 Diastolic blood pressure 84 mm[Hg] Dr. Ray Rapp DO Work Phone: 6(504)808-015343 [place] [address] 01-13-2025 01:55-0400 Heart rate 82 /min Dr. Ray Rapp DO Work Phone: 6(558)160-145543 [place] [address] 01-13-2025 01:55-0400 Respiratory rate 16 /min Dr. Ray Rapp DO Work Phone: 3(940)009-053743 [place] [address] 01-13-2025 01:55-0400 SaO2% (BldA) [Mass fraction] 100 % Dr. Ray Rapp DO Work Phone: 0(545)971-547243 [place] [address] 01-13-2025 01:55-0400 Systolic blood pressure 125 mm[Hg] Dr. Ray Rapp DO Work Phone: [facility] 01-12-2025 23:01-0400 Body temperature 98.7 [degF] Dr. Ray Rapp DO Work Phone: [facility] 01-12-2025 23:01-0400 Diastolic blood pressure 85 mm[Hg] Dr. Ray Rapp DO Work Phone: 8([phone])[phone] [place] [address] 01-12-2025 23:01-0400 Heart rate 110 /min Dr. Ray Rapp DO Work Phone: [facility] 01-12-2025 23:01-0400 Respiratory rate 18 /min Dr. Ray Rapp DO Work Phone: [facility] 01-12-2025 23:01-0400 SaO2% (BldA) [Mass fraction] 100 % Dr. Rya Rapp DO Work Phone: [facility] 01-12-2025 23:01-0400 Systolic blood pressure 127 mm[Hg] Dr. Ray Rapp DO Work Phone: [facility] 01-12-2025 22:56-0400 Body height 160.[address] Ray Rapp DO Work Phone: [facility] 01-12-2025 22:56-0400 Body mass index (BMI) [Ratio] 22 kg/m2 Dr. Ray Rapp DO Work Phone: [facility] 01-12-2025 22:56-0400 Body weight 56.[address] Ray Rapp DO Work Phone: [facility] Encounters Encounter Date Encounter Type Care Provider Facility Start: 06-19-2025 ambulatory Page Dubois lity:[facility] Start: 06-13-2025 End: 06-13-2025 Emergency department patient visit No Primary Care Physician -Emergency Department Work Phone: Start: 06-11-[address] Page Goldstein MD -Laboratory Specimen Work Phone: Start: 06-11-2025 ambulatory No Primary Car e Physician Facility:[facility] Start: 06-09-[address] Page Goldstein MD -Laboratory Work Phone: Start: 06-09-2025 ambulatory Page Dubois lity:[facility] Start: 01-28-2025 End: 01-28-2025 ambulatory Page Goldstein Facility[facility] Start: 01-12-2025 Non-patient / Non-visit Dr. Page Goldstein MD -[facility] Start: 01-12-2025 End: 01-13-2025 Admission to same day surgery center Dr. Page Goldstein MD -Surgical Day Care Start: 01-12-2025 End: 01-13-[address] Ray Rapp DO Work Phone: [facility] Work Phone: Start: 01-12-2025 End: 01-12-2025 Patient encounter procedure Nette Miller DIESEL CRANE OPERATOR.QUALITY ASSURANCE DIRECTOR Work Phone: [facility] Comment on above: Vaginal bleeding in patient at less than 20 weeks gestation (HCC) (Primary Dx) Procedures Date Procedure Procedure Detail Performing Clinician Start: 06-13-2025 Urnls dip stick/tabl et reagent auto microscopy No Primary Care Physician Start: 06-13-2025 Estimated creatinine clearance No Primary Care Physician Start: 06-13-2025 Transvaginal obstetr ic ultrasonography No Primary Care Physician Start: 01-13-2025 Removal of ectopic fetus Dr. Ray Rapp DO Work Phone: Start: 01-12-2025 Transvaginal obstetr ic ultrasonography Dr. Ray Rapp DO Work Phone: Plan of Treatment Date Care Activity Detail Author Start: 06-13-2025 [facility] Start: 01-13-2025 Medical regimen orde rs management [facility] Start: 01-13-2025 Patient discharge [facility] Start: 01-12-2025 Hospital admission, emergency, from emergency room, medical nature [facility] Start: 06-01-2024 Covid-19 Vaccine ( season) Covid-19 Vaccine ( season) [facility] Start: 06-01-2024 Influenza vaccination Influenza Vacc ine (#1) [facility] Start: 2020 Screening for malign ant neoplasm of cervix Cervical Cancer Screening [facility] Start: 2018 Hepatitis B Vaccine (1 of 3 - 19+ 3-dose series) Hepatitis B Vaccine (1 of 3 - 19+ 3-dose series) [facility] Start: 2018 Urine microalbumin profile DTaP,Tdap,Td Vaccine (1 - Tdap) [facility] Start: 2017 Anxiety Screening Anxiety Screening [facility] Start: 2017 Depression Screening Depression Scre enkeith [facility] Start: 2017 Hepatitis C screening Hepatitis C Sc casey [facility] Start: 2017 HIV screening HIV Screening [facility] Start: 2014 HPV Vaccine (1 - 3-d ose series) HPV Vaccine (1 - 3-dose series) [facility] Start: 2013 Peds To Adult Transi tion Annual Assessment Peds To Adult Transition Annual Assessment [facility] Start: 2011 Peds To Adult Transi tion Initial Discussion Peds To Adult Transition Initial Discussion [facility] Patient Education ED Abdominal P ain, Early [facility] Work Phone: Patient referral [facility] Work Phone: Payers Date Payer Category Payer Private Health Insurance 101 [id number] 2025 Self-pay 2024 Private Health Insurance [id number] 2024 Private Health Insurance [id number] Unknown [id number] Unknown [id number] Unknown [id number] Unknown [id number] Unknown [id number] Unknown [id number] Unknown [id number] Unknown [id number] Social History Date Type Detail Facility Start: 01-12-2025 End: 06-13-2025 Tobacco smoking status NHIS Never smoked tobacco (finding) [facility] Start: 01-12-2025 End: 01-13-2025 Sex Female (finding) [facility] Start: 2000 Sex Assigned At Female [facility] Tobacco smoking status [facility] Tobacco smoking consumption unknown [facility] Start: 2000 Sex assigned at Not on file [facility] Gender identity Not on file [facility] inic NEGATED: Highlighted row Not [facility] Mental Status Date Assessment Result Facility 01-13-2025 Cognitive function Voice/Name [facility] Work Phone: Clinical Notes 2024 to 06-13-2025 Note Date & Type Note Facility 06-13-2025 Radiology Diagnostic study note [facility] Imaging Services [address] [place], [place] [address] Transvaginal w/Preg US MR#: [id number] Acct: [id number] Name: YESSICA SOLORZANO Rep #: [id number] : 2000 F 24 From: Mello Matthews MD PCP: Care Physician,No Primary Status: REG ER Study:Transvaginal w/Preg US Date of Exam: 06/13/25 Exam# [id number] Ordering Dr: Kvng East DO PROCEDURE: TRANSVAGINAL W/PREG US 06/13/2025 REASON FOR EXAM: ABDOMINAL PAIN, EARLY RULE OUT ECTOPIC TECHNIQUE: Procedure Code: USTVAGP Modality: US Procedure: TRANSVAGINAL W/PREG US COMPARISON: 01/09/2025 FINDINGS The uterus measures 8.0 x 5.5 x 4.0 cm. A possible early gestational sac is identified within the uterus. The mean sac diameter measures 0.4 cm and would correspond to a gestational age of 5 weeks 1 day. However, a yolk sac but no pole could be identified at this moment. The right ovary measures 5.0 x 5.3 x 3.8 cm and the left ovary measures 3.2 x 1.4 x 1.7 cm. Septated right ovarian cyst measures 4.1 x 4.3 x 3.6 cm. No adnexal masses are seen. There is a minimal amount of free fluid in the cul-de-sac. US/Transvaginal w/Preg US IMPRESSION: Possible small intrauterine gestational sac corresponding to a gestational age of 5 weeks 1 day. A yolk sac but no pole could be identified at this moment. Findings are most likely due to early intrauterine gestation below the limits of sonographic detection. Differential diagnosis includes blighted ovum or pseudo sac of ectopic . The latter is considered less likely given the lack of adnexal mass. Short-term follow-up sonography and serial serum beta HCG levels is recommended. Reading [facility] CC: Dr. Ariel East, DO; No Primary Care Physician ~ Extraction Machine Operator: Signed [facility] 01-13-2025 Consult note [facility] 01-13-2025 Consult note Note Date/Time January 13, 2025 2:00am [facility] Medical Records Department [address] [place] [address] Pre-Anesthesia Evaluation 01/12/25 2344 MR#: [id number] Acct: [id number] Name: YESSICA SOLORZANO Rep #:[id number] : 2000 24 From: Ravinder Garcia MD PCP: Care Physician,No Primary Status :[facility] Y Race: C [place] [facility] ASA Classification* ASA Classification ASA Classification: 2 [...] remove ectopic Anesthesia History Anesthesia History - mash filter cloth changer: Anesthesia History - mash filter cloth changer Hx Hospitalization Any Problems With Anesthesia No [...] take am of surgery PONV PONV - mash filter cloth changer: PONV - mash filter cloth changer Female HX of Motion Sickness HX of N/V After Surgery Non-Smoker Duration of Surgery greater than 60 minutes Number of Risk Factors PONV Score Height & Weight Height & Weight: Anesthesia: Height & Weight Height 5 ft 3 in 01/12/25 22:56 Weight: 56.5 kg 01/12/25 22:56 Body Mass Index (BMI) 22.0 01/12/25 22:56 Respiratory Assessment Respiratory Assessment - mash filter cloth changer: Respiratory Tract Infection Hx - mash filter cloth changer Hx Respiratory Tract Infection No 01/12/25 22:56 STOP Sleep Apnea STOP Sleep Apnea - mash filter cloth changer: STOP Sleep Apnea - mash filter cloth changer Hx Hypertension No 01/12/25 22:56 Hx Sleep [...] Tobacco Use History Tobacco Use History - mash filter cloth changer: Tobacco Use History - mash filter cloth changer Tobacco Use Smoking Status Never smoker 01/12/25 20:07 Hx Tobacco Use Years Smoking Packs Smoked per Day Smoking Cessation Date was within the last 15 years Hx Smoking Cessation Date Hx Smoking Cessation Counseling Hematologic Medial History Hematologic Hx - mash filter cloth changer: Hematologic Medical Hx - manager rn case Hx of Blood Transfusion Hx of Transfusion in last 3 Months Date of Last Transfusion (if within last 3 months) Ever experience any problems with transfusion(s)? Specify any problems Hx of Preganancy in last 3 Months Nurse Filling Out Transfusion & Questions: Date: Time: Patient unable to answer at this time (ie. confused, unrespo /Reproduction History /Reproductive History - mash filter cloth changer: /Reproductive Hx- mash filter cloth changer Hx Now No 01/12/25 22:56 Gestational Age [...] no additional complaints, except as documented. 01/12/25 2848 <Electronically signed by Ravinder Garcia MD > Date _ Ravinder Garcia MD Cosigner Signature: Date CC: ~ Signed [facility] Work Phone: 1(848) 417-883904-15-2025 Discharge summary Author Ray Rapp [facility] Note Date/Time January 12, 2025 11: 42pm [facility] Medical Records Department [address] [place] [address] Emergency Department Summary 01/12/25 MR#: [id number] Acct: [id number] Name: YESSICA SOLORZANO Rep #:[id number] : 2000 24 From: Ray Mcelroy PCP: Care Physician,No Primary Status :REG SD Location: [facility] HPI HPI - Female History [...] but has not followed up with any INSERTER PROMOTIONAL ITEM yet. Patient states this is her first [...] % (Auto) 61.7 Lymph % (Auto) 28.5 [place] % (Auto) 7.6 Eos % (Auto) 1.0 [...] Clarity Clear Urine pH 6.5 Ur Specific Edison 1.010 Urine Protein 15 H Urine Glucose [...] notified on 01/12/2025 at 21:00 Reading Location: [facility] Pelvic ultrasound was obtained. There is no intrauterine gestational sac. There is moderate amount of free fluid with some internal echoes. Hemorrhagic or purulent fluid cannot be excluded. This was interpreted by the radiologist and was also independently reviewed by myself. Treatment and Re-Evaluation Narrative: Patient was given IV fluids. Patient was advised of her findings. Case was discussed with Dr. Page Goldstein. She was in to evaluate the patient. Shewill take the patient to the operating room for ectopic . Patient understands and is agreeable with the plan. All questions were answered. Discharge Plan Triage Chief Complaint: Vag Bld, Preg ED Provider: aRy Rapp Dx/Rx/DC Orders Clinical Impression: Ectopic , Pelvic pain Primary Care Provider: Care Physician,No Primary Disposition Disposition: Acute Care Hospital [facility] What to do if you have Problems For any increased pain, shortness of breath, bleeding, nausea or vomiting, chestpain, or any unexpected problems, contact your Primary Care Provider. Call [facility] ([phone]) or report to the closest Emergency Room. Call 911 if necessary. 01/12/252341 <Electronically signed by Ray Rapp DO> Cosigner Signature (if applicable): CC: No Primary Care Physician ~ Signed [facility] Work Phone: 1(830) 251-803504-15-2025 Discharge summary Author Page Goldstein [facility] Note Date/Time January 13, 2025 12: 36am [facility] Medical Records Department [address] [place] [address] Instructions for Home/Discharge Instructions 01/12/25 2321 MR#: [id number] Acct: [id number] Name: YESSICA SOLORZANO Rep #:[id number] : 2000 From: Page choi MD PCP: [...] applicable. Discharge Plan Admission Attending Provider: Page Goldstein Primary Care Provider: Care Physician,No Primary Instructions Print Language: South African Discharge Orders/Prescriptions Prescriptions: New oxycodone-acetaminophen [Percocet] 5-325 mg tablet 1 tab PO Q4H PRN (Reason: pain) 7 Days Qty: 20 0RF Referrals / Follow Up: Care Physician,No Primary [Primary Care Provider] - Disposition Disposition (needs filled in before D/C Order can be placed): Home, Self Care 01/13/25 0036<Electronically signed by Page Goldstein MD>Page Goldstein MD CC: No Primary Care Physician ~ Signed [facility] Work Phone: 1(435) 531-230904-15-2025 History and physical note Author Page Goldstein [facility] Note Date/Time January 12, 2025 11: 20pm [facility] Medical Records Department [address] [place] [address] H&P Exam - INSERTER PROMOTIONAL ITEM 01/12/25 2314 MR#: [id number] Acct: [id number] Name: YESSICA SOLORZANO Rep #:[id number] : 2000 From: Page choi MD PCP: Care Physician,No Primary [place] [facility] [place] [facility] HPI - General HPI Narrative YESSICA SOLORZANO, [...] regarding procedure. 01/12/252319 <Electronically signed by Page Goldstein MD> Cosigner Signature (if applicable): CC: Dr. Page Goldstein MD; No Primary Care Physician~ Signed [facility] Work Phone: [phone]) 212-900904-15-2025 Consult note [facility] Medical Records Department [address] [place] [address] Anesthesia Postop Eval I 01/13/2552 MR#: [id number] Acct: [id number] Name: YESSICA SOLORZANO Rep #:[id number] : 2000 From: Ravinder Garcia MD PCP: Care Physician,No Primary Status :[facility] Y Race: C [place] [facility] Anesthesia: Postop Eval I Current Vital Signs Temperature: 97.8 F Pulse Rate: 114 Blood Pressure: 127/88 Respiratory Rate: 16 Pulse Ox: 100 Assessment Airway patent: Yes Spontaneous unlabored respirations: Yes Mental status: Awake nausea: No Vomiting: No Anesthesia Complication: No Fluid Hydration Crystalloid volume administer (ml): 1,000 Total IV fluid infused: 1,000 Progress Note Anesthesia document: Postop Eval 1 completed: Yes 01/13/2553 > Date _ Ravinder Garcia MD Cosigner Signature: Date CC: ~ Signed [facility]04-15-2025 Evaluation note* Diagnosis Onset Date Resolution Status Admit Date Ectopic acute December 302024 10:42pm Pelvic pain acute January 12, 2 025 10:42pm [facility] Work Phone: [phone]) 994-300804-15-2025 Discharge summary [facility] Medical Records Department [address] [place] [address] Instructions for Home/Discharge Instructions 01/12/25 2321 MR#: [id number] Acct: [id number] Name: YESSICA SOLORZANO Rep #:[id number] : 2000 24 From: Page choi MD [...] applicable. Discharge Plan Admission Attending Provider: Page Goldstein Primary Care Provider: Care Physician,No Primary Instructions Print Language: South African Discharge Orders/Prescriptions Prescriptions: New oxycodone-acetaminophen [Percocet] 5-325 mg tablet 1 tab PO Q4H PRN (Reason: pain) 7 Days Qty: 20 0RF Referrals / Follow Up: Care Physician,No Primary [Primary Care Provider] - Disposition Disposition (needs filled in before D/C Order can be placed): Home, Self Care 01/13/25 0036Page Goldstein MD CC: No Primary Care Physician ~ Signed [facility]04-15-2025 Procedure note [facility] Medical Records Department [address] [place] [address] Operative Report 01/12/250 MR#: [id number] Acct: [id number] Name: YESSICA SOLORZANO Rep #:[id number] : 2000 From: Page choi MD PCP: Care Physician,No Primary Status :[place] [facility] [place] [facility] Problems Associated Problem List Diagnoses (1) Ectopic : Procedures Urinary/Genital 52xxx-59xxx: 94512 Treat ectopic lapro w/ salpingectomy Operative Report (Standard) Operative Information Date of Procedure: 01/12/25 Pre-Operative Diagnosis: see problem list Post-Operative Diagnosis: same ruptured left ectopic Surgery/Procedure Performed: laparoscopic left salpingectomy extra hand: Yes Flatwork Presser: Gloria Shrestha Tasks completed by housekeeper and laundry assistant: Opening & closing, Altering tissue and Insert Trochanter Additional hearing aid assistant?: No Type of Anesthesia: General RN [...] Cosigner Signature (if applicable): CC: Dr. Page Goldstein MD; No Primary Care Physician~ Signed [facility]04-14-2025 Discharge summary [facility] Medical Records Department [address] [facility] [place] [address] Emergency Department Summary 01/12/25 MR#: [id number] Acct: [id number] Name: YESSICA SOLORZANO Rep #:[id number] : 2000 From: Ray Mcelroy PCP: Care Physician,No Primary Status :[place] [facility] Location: [facility] HPI HPI - Female History [...] but has not followed up with any INSERTER PROMOTIONAL ITEM yet. Patient states this is her first [...] % (Auto) 61.7 Lymph % (Auto) 28.5 [place] % (Auto) 7.6 Eos % (Auto) 1.0 [...] Clarity Clear Urine pH 6.5 Ur Specific Edison 1.010 Urine Protein 15 H Urine Glucose [...] notified on 01/12/2025 at 21:00 Reading Location: [id number] Pelvic ultrasound was obtained. There is no intrauterine gestational sac. There is moderate amount of free fluid with some internal echoes. Hemorrhagic or purulent fluid cannot be excluded. This was interpreted by the radiologist and was also independently reviewed by myself. Treatment and Re-Evaluation Narrative: Patient was given IV fluids. Patient was advised of her findings. Case was discussed with Dr. Page Goldstein. She was in to evaluate the patient. Shewill take the patient to the operating room for ectopic . Patient understands and is agreeable with the plan. All questions were answered. Discharge Plan Triage Chief Complaint: Vag Bld, Preg ED Provider: Ray Rapp Dx/Rx/DC Orders Clinical Impression: Ectopic , Pelvic pain Primary Care Provider: Care Physician,No [facility] What to do if you have Problems For any increased pain, shortness of breath, bleeding, nausea or vomiting, chestpain, or any unexpected problems, contact your Primary Care Provider. Call [facility] ([phone]) or report tothe closest Emergency Room. Call 911 if necessary. 01/12/25 2349 Cosigner Signature (if applicable): CC: No Primary Care Physician ~ Signed [facility]04-14-2025 History and physical note [facility] Medical Records Department [address] [place] [address] H&P Exam - INSERTER PROMOTIONAL ITEM 01/12/25 2314 MR#: [id number] Acct: [id number] Name: YESSICA SOLORZANO Rep #:[id number] : 2000 24 From: Page choi MD PCP: Care Physician,No Primary Status :[place] [facility] [place] [facility] HPI - General HPI Narrative YESSICA SOLORZANO, [...] given for additional information regarding procedure. 01/12/25 5100 Cosigner Signature (if applicable): CC: Dr. Page Goldstein MD; No Primary Care Physician~ Signed [facility]04-14-2025 Radiology Diagnostic study note [facility] Imaging Services [address] [place], [place] [id number] Transvaginal w/Preg US MR#: [id number] Acct: [id number] Name: YESSICA SOLORZANO Rep #: [id number] : 2000 F 24 From: Nimesh Batista MD PCP: Care Physician,No Primary Status: REG ER Study:Transvaginal w/Preg US Date of Exam: 01/12/25 Exam# [id number] Ordering Dr: Ray Rapp DO PROCEDURE: TRANSVAGINAL [...] notified on 01/12/2025 at 21:00 Reading Location: [id number] CC: Dr. Ray Rapp, DO; No Primary Care Physician ~ Extraction Machine Operator: Signed [facility]04-14-2025 NoteHNO ID: [id number] Author: NETTE MILLER APRN.JEFFREY Service: ? Author Type: Nurse Practitioner Type: Progress Notes Filed: 01/12/2025 17:16 Note Text: Called to triage patient by PSS staff 24 year old female who is 5 weeks Has been complaining of vaginal bleeding, x 2 weeks Today she developed pelvic pain and cramping I need to make sure that I don't have an ectopic Discussed limitations of express care, Referred to [facility]04-14-2025 History of Present illness Narrative* [...] care, Referred to ED [facility] Consult note Author Ravinder otilia [facility] Note Date/Time January 13, 2025 12: 54am [facility] Medical Records Department [address] [facility] [place] [address] Anesthesia Postop Eval I 01/13/2552 MR#: [id number] Acct: [id number] Name: YESSICA SOLORZANO Rep #:[id number] : 2000 From: Ravinder Garcia MD PCP: Care Physician,No Primary Status :[facility] Y Race: C [place] [facility] Anesthesia: Postop Eval I Current Vital Signs [...] MD > Date _ Ravinder Garcia MD Cosign Signature: Date CC: ~ Signed [facility] Work Phone: 1(463) 226-956012-07-2024 Consult note Author Ravinder otilia [facility] Note Date/Time January 13, 2025 2:0 0am [facility] Medical Records Department [address] [place] [address] Anesthesia Postop Eval II 01/13/2554 MR#: [id number] Acct: [id number] Name: YESSICA SOLORZANO Rep #:[id number] : 2000 From: Ravinder Garcia MD PCP: Care Physician,No Primary Status :REG [facility] Y Race: C [place] [facility] Anesthesia Postop Eval I Sum Postop Eval [...] MD Cosigner Signature: Date CC: ~ Signed [facility] Work Phone: Consult note [facility] Medical Records Department [address] [place] [address] Anesthesia Postop Eval II 01/13/2554 MR#: [id number] Acct: [id number] Name: YESSICA SOLORZANO Rep #:[id number] : 2000 From: Ravinder Garcia MD PCP: Care Physician,No Primary Status :REG [facility] Y Race: C Location: [facility] Anesthesia Postop Eval I Sum Postop Eval [...] Ravinder Vivas Signature: Date CC: ~ Signed [facility] Diagnosis Onset Date Resolution Status Admit Date Ectopic acute December 302024 10:42pm Pelvic pain acute January 12, 10:42pm [facility] Work Phone: Evaluation note* Diagnosis Vaginal bleeding in patient at less than 20 weeks gestation (HCC)- Primary documented in this encounter [facility] CenterEvaluation noteNo assessment information availableWMedina [facility] Work Phone: History and physical note Author Page Goldstein [facility] Note Date/Time January 12, 2025 11: 20pm [facility] Medical Records Department [address] [place] [address] H&P Exam - INSERTER PROMOTIONAL ITEM 01/12/25 2314 MR#: [id number] Acct: [id number] Name: YESSICA SOLORZANO Rep #:[id number] : 2000 From: Page choi MD PCP: Care Physician,No Primary Status :REG [facility] [place] [facility] HPI - General HPI Narrative YESSICA SOLORZANO, [...] regarding procedure. 01/12/252319 <Electronically signed by Page Goldstein MD> Cosigner Signature (if applicable): CC: Dr. Page Goldstein MD; No Primary Care Physician~ Signed [facility] Work Phone: Hospital Discharge instructionsAdditional Instructions Thank you for trusting us with your care today! Your ultrasound was reassuring. It showed evidence of a early . There is no definitive evidence of an ectopic or miscarriage. Please take Tylenol (2 pills, 650 mg) every 6 hours as needed for pain and fever control. Please return to the emergency department if your symptoms change or worsen. Specifically develop severe abdominal pain, you lose consciousness or develop vaginal bleeding, leakage of fluid or passage of any tissue. Please follow with your INSERTER PROMOTIONAL ITEM (Dr. Goldstein) for further outpatient evaluation and management. She recommended you get a repeat ultrasound in 7 to 10 days. She recommended you call her office on Sunday to schedule this appointment.[facility] Work Phone: Reason for referral (narrative)No reason for referral information availableWooUniversity Hospitals [facility] Work Phone: Chief Complaint and Reason for Visit Chief Complaint Admit Date RUPTURED ECTOPIC January 12, 2025 10: 42pm RUPTURED ECTOPIC January 12, 2025 11: 14pm Reason for Visit Admit Date Ectopic January 12, 2025 10: 42pm Pelvic pain January 12, 2025 10: 42pm Chief Complaint Admit Date E-ORDER June 09, 2025 6:58pm at early stage June 11, 2025 6:52pm ABDOMINAL PAIN June 13, 2025 5:25pm Advance Directives No Advanced Directives Records Found Advance Directive Response Recorded Date/ Time Living Will No January 12, 2025 8:07pm Do you have a Healthcare Power of Crawler Tractor Operator? No January 12, 2025 8:07pm Advance Directive Response Recorded Date/ Time Do you have a Healthcare Power of Crawler Tractor Operator? No June 13, 2025 6:08pm Summary Purpose Family History No Family History [...] 2025 End: January 13, 2025 Dr. Page Goldstein MD Attending Provider Active Start: January 12, 2025 End: January 13, 2025 Team Status: Active Member Role Status Dates Dr. Ray Rapp DO Emergency Provider Active Start: January 12, 2025 No Primary Care Physician Primary Care Provider Active Start: January 12, 2025 Dr. Page Goldstein MD Attending Provider Active Start: January 12, 2025 Dr. Page Goldstein MD Other Provider Active Start: January 12, 2025 Team Status: Active Member Role Status Dates Dr. Ray Rapp DO Emergency Provider Active Start: January 12, 2025 No Primary Care Physician Primary Care Provider Active Start: January 12, 2025 Dr. Page Goldstein MD Attending Provider Active Start: January 12, 2025 Team Status: Active Member Role/Relationship Status Dates No Primary Care Physician Primary Care Provider Active Team Status: Active Member Role/Relationship Status Dates No Primary Care Physician Primary Care Provider Active Start: June 09, 2025 Dr. Page Goldstein MD Attending Provider Active Start: June 09, 2025 Dr. Page Goldstein MD Referring Provider Active Start: June 09, 2025 Team Status: Active Member Role/Relationship Status Dates Dr. Page Goldstein MD Attending Provider Active Start: June 11, 2025 No Primary Care Physician Primary Care Provider Active Start: June 11, 2025 Team Status: Active Member Role/Relationship Status Dates No Primary Care Physician Primary Care Provider Active Start: June 11, 2025 Dr. Page Goldstein MD Attending Provider Active Start: June 11, 2025 Team Status: Inactive Member Role/Relationship Status Dates No Primary Care Physician Primary Care Provider Active Start: June 13, 2025 End: June 13, 2025 Dr. Ariel East DO Emergency Provider Active Start: June 13, 2025 End: June 13, 2025 Goals (unrecognized section and content) Goals may be documented in a n alternate sectionGoals may be documented in an alternate sectionGoals may be documented in an alternate section Source Comments (unrecognize d section and content) In the event this informatio n is protected by the Federal Confidentiality of Alcohol and Drug Abuse Patient Records regulations: The Federal rules restrict any use of the information to criminally investigate or prosecute any alcohol or drug abuse patient.[facility] INFORMATION SOURCE (unrecogn ized section and content) DATE CREATED AUTHOR 01/14/2025 [facility] DATE CREATED AUTHOR AUTHOR'S ROSARIO LACY 06/16/2025 [facility] FOR RECORDS PERTAINING TO PATIENTS WHO ARE [...] BE BASED ON THE PRIMARY CLINICAL RECORDS. [facility]. provides no warranty or guarantee of the accuracy or completeness of information in this document.
== END | disposition home or self-care (01) ==
PROVIDERS: Referring Provider Obstetrics & Gynecology; Visit Provider Obstetrics & Gynecology
DX: O09.10 Supervision of pregnancy with history of ectopic pregnancy, unspecified trimester (principal); Z3A.00 Weeks of gestation of pregnancy not specified
CPT/HCPCS: 76817

== ENCOUNTER → 2025-06-24 | Outpatient (CLI) | payer MEDICAID, SELFPAY ==
[2025-06-24 13:04] LABS: hCG Titer Quant., Serum 1300 mIU/mL (<9 non-preg)
== END | disposition home or self-care (01) ==
PROVIDERS: Nurse Practitioner Women's Health; Visit Provider Obstetrics & Gynecology
DX: O20.0 Threatened abortion (principal); Z3A.00 Weeks of gestation of pregnancy not specified
CPT/HCPCS: 36415; 84702

== ENCOUNTER → 2025-06-26 | Outpatient (CLI) | payer MEDICAID, SELFPAY ==
[2025-06-26 10:47] LABS: hCG Titer Quant., Serum 400 mIU/mL (<9 non-preg)
== END | disposition home or self-care (01) ==
PROVIDERS: Visit Provider Advanced Practice Midwife
DX: O20.0 Threatened abortion (principal); Z3A.00 Weeks of gestation of pregnancy not specified
CPT/HCPCS: 36415; 84702

== ENCOUNTER → 2025-06-30 | Outpatient (CLI) | payer MEDICAID, SELFPAY ==
--- OUTSIDE RECORDS SUMMARY | 2025-01-12 17:00 | XMS RPT_ITS ---
Author Name Auto Generated Organization OHIP PROBLEMS No Problem Records Found PROCEDURES No Procedure Records Found RESULTS PROGRESS Observed: 01/12/2025 5:14 PM Status: COMPLETED Source: [facility] HNO ID: [id number] Author: NETTE STEPHEN APRN.CNP Service: ? Author Type: Nurse Practitioner Type: Progress Notes Filed: 01/12/2025 17:16 Note Text: Called to triage patient by PSS staff 24 year old female who is 5 weeks Has been complaining of vaginal bleeding, x 2 weeks Today she developed pelvic pain and cramping I need to make sure that I don't have an ectopic Discussed limitations of express care, Referred to ED CNOV Observed: 01/12/2025 5:00 PM Status: COMPLETED Source: [facility] Office Visit ([facility]) YESSICA SOLORZANO ([id number]) 2000 F Date Time Provider Department 01/12/25 5:00 PM NETTE STEPHEN WSTR During your visit today, we recorded the following information about you: Nette Stephen APRN.CNP 01/12/2025 5:16 PM Signed Called to triage patient by PSS staff 24 year old female who is 5 weeks Has been complaining of vaginal bleeding, x 2 weeks Today she developed pelvic pain and cramping I need to make sure that I don't have an ectopic Discussed limitations of express care, Referred to ED Allergies As of Date: 01/12/2025 (Not on File) Date Reviewed: Never Reviewed Primary Visit Diagnosis:Vaginal bleeding in patient at less than 20 weeks gestation (HCC) [O20.9] Problem List As Of Date: 01/12/2025 (None) Encounter Status:Closed by NETTE STEPHEN on 01/12/25 ALLERGIES No Allergies Records Found ENCOUNTERS ADMIT/DISCHARGE ACCOUNT NUMBER ADMITTING ENCOUNTER CLASS LOC ATION SOURCE 01/12/2025/ [id number] Ambulatory [facility] HospitalBuild ing:[place] PAYERS ENCOUNTER GUARANTOR PAYER SUBSCRIBER SOURCE 01/12/2025 Primary Insurance:[employer] HIXPolicy Number: [id number] Date:[id number] Name:Amarilys WU: [id number] [place] [address] [facility]
[2025-06-30 11:27] LABS: hCG Titer Quant., Serum 88 mIU/mL (<9 non-preg)
== END | disposition home or self-care (01) ==
LOC: BWCLAB 08:09
PROVIDERS: Visit Provider Advanced Practice Midwife
DX: O20.0 Threatened abortion (principal); O09.10 Supervision of pregnancy with history of ectopic pregnancy, unspecified trimester; Z3A.00 Weeks of gestation of pregnancy not specified
CPT/HCPCS: 36415; 84702

== ENCOUNTER → 2025-07-24 | Outpatient (CLI) | payer MEDICAID, SELFPAY ==
[2025-07-24 13:10] LABS: hCG Titer Quant., Serum 449 mIU/mL (<9 non-preg)
== END | disposition home or self-care (01) ==
LOC: BWCLAB 10:31
PROVIDERS: Visit Provider Advanced Practice Midwife
DX: O26.859 Spotting complicating pregnancy, unspecified trimester (principal); Z3A.00 Weeks of gestation of pregnancy not specified
CPT/HCPCS: 36415; 84702

== ENCOUNTER → 2025-07-26 | Outpatient (CLI) | payer MEDICAID, SELFPAY ==
--- OUTSIDE RECORDS SUMMARY | 2025-07-26 10:34 | XMS RPT_ITS | CCD ---
Author Organization [facility] Care Team Providers Care Hospice Administrator Name Role Phone Dr. Ray Rapp DO Emergency Provider [phone] Care Physician, No Primary Primary Care Provider Unavailable Pardeep BECKER, Dr. Abel Attending Provider [phone] Dr. Page Goldstein MD Other Provider Unavailable [facility], No Primary Primary Care Provider Unavailable Dr. Page Goldstein MD Attending Provider [phone] Dr. Page Goldstein MD Referring Provider Dr. Ariel East DO Emergency Provider [phone] Care Physician, No Primary Primary Care Physicia n Unavailable Dr. Page Goldstein MD Attending Physician Dr. Ariel East DO Attending Physician Dr. Ariel East DO Emergency Department Physi louis Kathleen Bryant CNM Attending Physician Care Physician, No Primary Referring Provider Un available Page Goldstein Attending Unavailable Page Goldstein Referring Unavailable Care Physician, No Primary Primary Care Unava ilable Kathleen Bryant Attending Unavailable Care Physician, No Primary Primary Care Unava ilable Kathleen Bryant Attending Unavailable Care Physician, No Primary Primary Care Unava ilable Care Physician, No Primary Primary Care Unava ilable Kathleen Bryant Attending Unavailable Care Physician, No Primary Primary Care Unava ilable Page Goldstein Attending Unavailable Page Goldstein Attending Unavailable Care Physician, No Primary Primary Care Unava ilable Care Physician, No Primary Primary Care Unava ilable Ariel East Attending Unavailable Page Goldstein Attending Unavailable Page Goldstein Consulting Unavailable Care Physician, No Primary Primary Care Unava ilable Pardeep, Page Attending Unavailable Care Physician, No Primary Primary Care Unava ilable Care Physician, No Primary Referring Unava ilable Care Physician, No Primary Primary Care Unava ilable Pardeep, Page Referring Unavailable Pardeep, Page Attending Unavailable Pardeep, Page Attending Unavailable Care Physician, No Primary Primary Care Unava ilable Care Physician, No Primary Primary Care Unava ilable Pardeep, Page Attending Unavailable Kathleen Bryant Attending Unavailable Care Physician, No Primary Referring Unava ilable Care Physician, No Primary Primary Care Unava ilable Pardeep, Page Attending Unavailable Care Physician, No Primary Referring Unava ilable Care Physician, No Primary Primary Care Unava ilable Medications Current Medications Medication Drug Class(es) Dates Sig (Normalized) Sig (Original) Sidell (Nk) (1 source) Start: 07-03-2025 Sidell (Nk) A ctive July 03, 2025 12:00am Completed/Discontinued Medications Medication Drug Class(es) Dates Sig (Normalized) Sig (Original) acetaminophen 325 mg / oxyCODONE hydrochloride 5 mg oral tablet (10 sources) Opioid Agonist Start: 01-12-2025 End: 01-28-2025 Oxycodone-Acetamino phen (Percocet) 5-325 mg tablet Discontinued 1 {tbl} PO Q4H as needed for pain 20 7 0 January 12, 2025 January 28, 2025 1:00pm Ectopic Unspecified ectopic without intrauterine Problems Active Problems Problem Classification Problem Date Documented Date Episodic/Chronic Hemorrhage during ; abruptio placenta; placenta previa (2 sources) Bleeding from female genital tract during ; Translations: [Hemorrhage in early , unspecified] Onset: 07-18-2025 01-12-2025 Episodic Other complications of (7 sources) H/O: ectopic ; Translations: [Supervision of with history of ectopic , unspecified trimester] 06-15-2025 Episodic Other complications of (1 source) Spotting complicating , unspecified trimester; Translations: [Spotting complicating , unspecified trimester] Onset: 07-24-2025 Episodic Other complications of (1 source) Supervision of with history of ectopic , unspecified trimester; Translations: [Supervision of with history of ectopic , unspecified trimester] Onset: 06-29-2025 Episodic Other female genital disorders (7 sources) Cyst of uterus; Translations: [Other specified noninflammatory disorders of uterus] 06-22-2025 Episodic Comment on above: septated cyst noted on TVUS 06/19, rpt 1mo Other and delivery including normal (9 sources) Early stage of ; Translations: [Encounter for supervision of normal , unspecified, unspecified trimester] Onset: 06-23-2025 06-09-2025 Episodic Residual codes; unclassified (8 sources) History of laparoscopy; Translations: [Other specified postprocedural states] 01-13-2025 Episodic Comment on above: left salpingectomy Unclassified (1 source) Other specified diseases and conditions complicating ; Translations: [Other specified diseases and conditions complicating ] Onset: 06-15-2025 Past or Other Problems Problem Classification Problem Date Documented Da te Episodic/Chronic Abdominal pain (13 sources) Pain in pelvis; Translations: [Pelvic and perineal pain] Onset: 01-27-2025 01-12-2025 Episodic Ectopic (14 sources) Ectopic ; Translations: [Unspecified ectopic without intrauterine ] Onset: 01-27-2025 01-12-2025 Episodic Results Test Name Value Interpretation Reference Range Facility Test Fixture Assembler Office Visit Reporton 07-24-2025 Test Fixture Assembler Office Visit Report [facility] [address] [place] [address], [address] [place] [address] OFFICE VISIT Date of Service: 07/24/25 MR#: [id number] Acct: [id number] Name: YESSICA SOLORZANO Rep #: [id number] : 2000 Provider: JAREN Jalloh ams Age/Sex: 24/F Location: [facility] Status: Signed Intake Vital Signs 07/03/25 14:58 07/24/25 09:52 Height 5 ft 2 in 5 ft 2 in Weight: 120 lb 6 oz 121 lb 4 oz BMI 22.0 22.1 BP 137/92 H 130/75 H Intake Visit Reasons: spotting in early /SM Chief Complaint: Spotting in Marketing Program Manager Required: No Is patient in pain?: No Allergies No Known Allergies Allergy (Verified 07/24/25 09:55) Medications ???Medication ???Instructions ???Recorded ???Confirmed ???Type NK 07/03/25 07/24/25 History Is last menstrual period known: No Post menopausal: No PFSH Surgical History History of unilateral salpingectomy Social History housing: house number of children: 0 current occupational status: employed current occupation: [employer] Smoking Status: Never smoker seatbelt use: always do you feel safe at home: Yes additional social history: Evert DUBOIS spotting in early /SM Details: YESSICA SOLORZANO is a 24 year old who presents for spotting in early . had +home test yesterday but today started cramping and has had some light spotting. Hx of ectopic with removal of left tube. Is due for menses to start- had SAB in june. Female Reproductive History Last Menstrual Period: 06/23/25 History 2 Elective abortions Hx Para 0 Spontaneous abortions 1 Hx # Term Pregnancies Ectopic pregnancies 1 Hx # Pregnancies Multiple births # of living children Past Pregnancies Del. Date Name GA/Weeks Outcome Route Bth Weight Infant Gen Labor Lgth Anesthesia Del [facility] Provider FOB Unknown June 2025 spontaneous 01/12/25 ectopic ROS Const Constitutional: Reports system reviewed and no additional complaints, except as documented Cardio Card: Reports system reviewed and no additional complaints, except as documented Resp Resp: Reports system reviewed and no additional complaints, except as documented GI GI: Reports system reviewed and no additional complaints, except as documented : Reports system reviewed and no additional complaints, except as documented Skin Skin/Breast: Reports system reviewed and no additional complaints, except as documented Neuro Neuro: Reports system reviewed and no additional complaints, except as documented Psych Psych: Reports system reviewed and no additional complaints, except as documented Exam Const General: cooperative, healthy appearing, comfortable and no acute distress Orientation: alert, awake and oriented x3 Neck Neck: normal visual inspection and full ROM Resp Effort Inspection: normal respiratory effort, able to speak in complete sentences and symmetric chest movement Skin General: no rashes or lesions noted Neuro General: patient alert, patient awake and patient oriented x3 Cognition: normal cognition Speech: speech normal Gait: normal gait Extrem General: normal to inspection and full ROM Psych Appearance: grossly normal and well kempt Mental Status: mental status grossly normal Affect: normal affect Speech and Movement: speech and movement normal Attitude: cooperative Thought Process: normal Thought Content: normal Judgment: judgment good Coding Level of Care Code Off vis,est,level 3 Diagnoses Spotting in early O26.859 Assessment and Plan Assessment and Plan (1) Spotting in early : Status: Acute Plan: serial HCGs ectopic precautions reviewed management pending results Orders: Orders hCG Titer Quant., Serum 07/26/25 O26.859 - Spotting complicating , unspecified trimester hCG Titer Quant., Serum Today O26.859 - Spotting complicating , unspecified trimester 07/24/25 1012 Date Kathleen Bryant CNM Cosigner Signature: Date (if applicable) CC: Normal [facility] hCG Titer Quant., Serumon HCG QUANT. 449 mIU/mL High <9 non-preg [facility] Comment on above: Result Comment: Gest ational Age 0.2-1 Week: 5-50 mIU/mL 1-2 Weeks: 50-500 mIU/mL 2-3 Weeks: 100-5000 mIU/mL 3-4 Weeks: 500-10,000 mIU/mL 4-5 Weeks:1000-50,000 mIU/mL 5-6 Weeks: 10,000-100,000 mIU/mL 6-8 Weeks: 15,000-200,000 mIU/mL 2-3 Months:10,000-100,000 mIU/mL Performed By: #### L 700.8000 #### [facility] [address] [place], [address] Test Fixture Assembler Office Visit Reporton 07-03-2025 Test Fixture Assembler Office Visit Report [facility] [address], [address] [place] [address] OFFICE VISIT Date of Service: 07/03/25 MR#: [id number] Acct: [id number] Name: YESSICA SOLORZANO Rep #: [id number] : 2000 Provider: Dr. Page murray MD Age/Sex: 24/F Location: [facility] Status: Signed Intake Vital Signs 06/13/25 17:26 07/03/25 14:58 Height 5 ft 2 in 5 ft 2 in Weight: 120 lb 6 oz BMI 22.0 BP 137/92 H Intake Visit Reasons: Miscarriage F/U per KW Marketing Program Manager Required: No Is patient in pain?: No Allergies No Known Allergies Allergy (Verified 07/03/25 15:00) Medications ???Medication ???Instructions ???Recorded ???Confirmed ???Type NK 07/03/25 07/03/25 History Post menopausal: No Patient : No : No [facility] Surgical History (Updated 07/03/25 @ 15:[address] Page Goldstein MD) History of unilateral salpingectomy Social History (Updated 06/13/25 @ 18:09 by Slime Gill) housing: house number of children: 0 current occupational status: employed current occupation: [employer] Smoking Status: Never smoker seatbelt use: always do you feel safe at home: Yes additional social history: Evert DUBOIS Miscarriage F/U per KW Details: The patient is a 24-year-old female presenting with a recent miscarriage. The miscarriage was preceded by right-sided pain, which led to an emergency room visit where ultrasounds indicated normal findings, and the appeared to be intrauterine. The patient experienced spotting followed by heavy bleeding, which began on a Sunday evening and was accompanied by cramping and passage of clots. The bleeding has since ceased, and the patient has not experienced any further bleeding since the previous Sunday. The patient has not undergone a follow-up ultrasound since the miscarriage, alth ough she was scheduled for one to evaluate an ovarian cyst. The ovarian cyst was noted to be of significant size and was likely related to the , possibly a corpus luteum cyst. The patient has been taking vitamins and supplements, including chlorophyll and probiotics, which have not been studied extensively in but are considered safe based on anecdotal evidence. The patient maintains an active lifestyle with regular exercise and has a healthy BMI of 22. She has been advised that moderate exercise is safe during , and there are no restrictions on lifting in the first trimester. The patient expressed concerns about the safety of various activities and supplements during , which were addressed during the visit. She was reassured that her lifestyle and supplement use are unlikely to have contributed to the miscarriage. Attestation: Documentation on this patient encounter was supported using ambient scribe technology/ voice AI technology. The patient consented to recording for the purpose of documenting the encounter. Provider reviewed content of the generated note prior to signature. History 2 Elective abortions Hx Para 0 Spontaneous abortions 1 Hx # Term Pregnancies Ectopic pregnancies 1 Hx # Pregnancies Multiple births # of living children Past Pregnancies Del. Date Name GA/Weeks Outcome Route Bth Weight Gen Labor Lgth Anesthesia Del Locatn Provider FOB Unknown June 2025 spontaneous 01/12/25 ectopic ROS Const Constitutional: Denies fatigue, fever(s), headache(s), increased appetite, poor appetite, weight gain or weight loss Cardio Card: Denies chest pain Resp Resp: Denies cough or dyspnea GI GI: Reports as per HPI; Denies abdominal pain, constipation, nausea or vomiting : Reports as per HPI; Denies difficulty voiding, dysuria, nipple discharge, urinary frequency, urinary incontinence, urinary hesitancy, urinary urgency, vaginal discharge, vaginal dryness, vaginal odor or vaginal pruritus Skin Skin/Breast: Denies change in hair, breast mass, breast pain, breast skin changes or nipple discharge Exam Const General: cooperative, healthy appearing, comfortable, no acute distress and well developed Nutritional Appearance: average body habitus Orientation: alert HENKS Head: normal to inspection and normocephalic Neck Neck: normal visual inspection and trachea midline Thyroid: thyroid normal Resp Effort Inspection: normal respiratory effort GI Inspection: normal to inspection and non-distended Palpation: soft and no hepatosplenomegaly General: bladder normal to palpation External Female Exam: normal external appearance and normal appearance of the urethra Urethra: normal appearance of the urethra, normal palpation and no discharge Speculum Exam - Vagina: normal appearance of the v (more content not included)... Normal [facility] Serum human chorionic gonado tropin detection for pregnancyOrdered By: Kathleen Bryant on 06-30-2025 HCG ( test) Ql 88 mIU/mL High <9 [facility] Comment on above: Gestational Age0.2-1 Week: 5-50 mIU/mL1-2 Weeks: 50-500 mIU/mL2-3 Weeks: 100-5000 mIU/mL3-4 Weeks: 500-10,000 mIU/mL4-5 Weeks:1000-50,000 mIU/mL5-6 Weeks: 10,000-100,000 mIU/mL6-8 Weeks: 15,000-200,000 mIU/mL2-3 Months:10,000-100,000 mIU/mL hCG Titer Quant., Serumon HCG QUANT. 88 mIU/mL High <9 non-preg [facility] Comment on above: Result Comment: Gest ational Age 0.2-1 Week: 5-50 mIU/mL 1-2 Weeks: 50-500 mIU/mL 2-3 Weeks: 100-5000 mIU/mL 3-4 Weeks: 500-10,000 mIU/mL 4-5 Weeks:1000-50,000 mIU/mL 5-6 Weeks: 10,000-100,000 mIU/mL 6-8 Weeks: 15,000-200,000 mIU/mL 2-3 Months:10,000-100,000 mIU/mL Performed By: #### L 700.8000 #### [facility] [address] [place] [address], [id number] Serum human chorionic gonado tropin detection for pregnancyOrdered By: Kathleen Bryant on 06-26-2025 HCG ( test) Ql 400 mIU/mL High <9 [facility] Comment on above: Gestational Age0.2-1 Week: 5-50 mIU/mL1-2 Weeks: 50-500 mIU/mL2-3 Weeks: 100-5000 mIU/mL3-4 Weeks: 500-10,000 mIU/mL4-5 Weeks:1000-50,000 mIU/mL5-6 Weeks: 10,000-100,000 mIU/mL6-8 Weeks: 15,000-200,000 mIU/mL2-3 Months:10,000-100,000 mIU/mL hCG Titer Quant., Serumon HCG QUANT. 400 mIU/mL High <9 non-[facility] Comment on above: Result Comment: Gest ational Age 0.2-1 Week: 5-50 mIU/mL 1-2 Weeks: 50-500 mIU/mL 2-3 Weeks: 100-5000 mIU/mL 3-4 Weeks: 500-10,000 mIU/mL 4-5 Weeks:1000-50,000 mIU/mL 5-6 Weeks: 10,000-100,000 mIU/mL 6-8 Weeks: 15,000-200,000 mIU/mL 2-3 Months:10,000-100,000 mIU/mL Performed By: #### L 700.8000 #### [facility] [address] [place], [address] Serum human chorionic gonado tropin detection for pregnancyOrdered By: Cherri Jesus on 06-24-2025 HCG ( test) Ql 1300 mIU/mL High <9 [facility] Comment on above: Gestational Age0.2-1 Week: 5-50 mIU/mL1-2 Weeks: 50-500 mIU/mL2-3 Weeks: 100-5000 mIU/mL3-4 Weeks: 500-10,000 mIU/mL4-5 Weeks:1000-50,000 mIU/mL5-6 Weeks: 10,000-100,000 mIU/mL6-8 Weeks: 15,000-200,000 mIU/mL2-3 Months:10,000-100,000 mIU/mL hCG Titer Quant., Serumon HCG QUANT. 1300 mIU/mL High <9 non-[facility] Comment on above: Result Comment: Gest ational Age 0.2-1 Week: 5-50 mIU/mL 1-2 Weeks: 50-500 mIU/mL 2-3 Weeks: 100-5000 mIU/mL 3-4 Weeks: 500-10,000 mIU/mL 4-5 Weeks:1000-50,000 mIU/mL 5-6 Weeks: 10,000-100,000 mIU/mL 6-8 Weeks: 15,000-200,000 mIU/mL 2-3 Months:10,000-100,000 mIU/mL Performed By: #### L 700.8000 #### [facility] [address] [place], [address] Transvaginal w/Preg USon Transvaginal w/Preg US [facility] [address] [place] [address] Transvaginal w/Preg US MR#: [id number] Acct: [id number] Name: YESSICA SOLORZANO Rep #: [id number] : 2000 From: Nnamdi garcia MD PCP: Care Physician,No Primary Status: REG CLI Study: Transvaginal w/Preg US Date of Exam: 06/19/25 Exam# [id number] Ordering Dr: Page Goldstein PROCEDURE: TRANSVAGINAL W/PREG US 06/19/2025 REASON FOR EXAM: F/U ER IMAGING, EARLY TECHNIQUE: Procedure Code: USTVAGP Modality: US Procedure: TRANSVAGINAL W/PREG US COMPARISON: Prior study dated June 13, 2025. FINDINGS: Comments: LMP: May 09, 2025. Number of Gestational Sacs: 1 Gestational Sac Shape: Normal Number of Fetuses: 1 Heart Rate: 106 beats per minute (average) Yolk Sac: Present and unremarkable. Placenta: Presently not well-visualized Uterine Abnormalities: Maternal uterus is unremarkable. Ovaries / Adnexa: There is a septated cyst in the right ovary measuring 4.4 cm 4.4 cm x 3.7 cm. There is a 1 cm x 0.7 cm 0.8 cm corpus luteum cyst in the left ovary. DIMENSIONS: Parameter Measurement / EGA [place] Rump Length: 2 mm/6 weeks and 0 days Gestational Sac: 7 mm/5 weeks and 3 days Yolk Sac: 3 mm/ ESTIMATED GESTATIONAL AGE: By Ultrasound: 5 weeks and 5 days By LMP: 5 weeks and 6 days ESTIMATED DATE OF DELIVERY: By Ultrasound: February 14, 2026 By LMP: February 13, 2026 US/Transvaginal w/Preg US IMPRESSION: UNREMARKABLE FIRST TRIMESTER ULTRASOUND. 4.4 cm 4.4 cm 3.7 cm septated cyst in the right ovary. Reading Location: [place] [address] CC: Dr. Page Goldstein MD; No Primary Care Physician Data Librarian: Signed Normal [facility] Absolute lymphocyte countOrd ered By: Ariel East on 06-13-2025 Lymphocytes Auto (Unsp spec) [#/Vol] 2.85 10*3/uL 0.83-4.51 [facility] Absolute neutrophil countOrd ered By: Ariel East on 06-13-2025 Neutrophils (Bld) [#/Vol] 5.5 10*3/uL 2.0-7.7 [facility] Anion gap in Serum or Plasma Ordered By: Ariel East on 06-13-2025 Anion gap [Moles/Vol] 13 mmol/L 5-15 [facility] Automated lymphocyte count a s percentage of total leukocytesOrdered By: Ariel East on 06-13-2025 Lymphocytes/100 WBC Auto (Unsp spec) 30.3 % 19-41 [facility] [id number] 06-13-2025 ABO and Rh group Nom (Bld) Blood group O Rh(D) positive Normal [facility] Comment on above: Performed By: #### L 700.8000 #### [facility] [address] [place] [address], [address] BUN/creatinine ratioOrdered By: Ariel East on 06-13-2025 Urea nitrogen/Creatinine [Mass ratio] 21.0 mg/mg High 10-20 [facility] Basophil percentageOrdered B y: Ariel East on 06-13-2025 Basophils/100 WBC (Bld) 0.9 % 0-1 [facility] Bilirubin Test strip Ql (U)O rdered By: Ariel East on 06-13-2025 Bilirubin Ql (U) Negative Negative [facility] Bilirubin, totalOrdered By: Ariel East on 06-13-2025 Bilirubin [Mass/Vol] 0.60 mg/dL 0.00-1.30 [facility] CBC W/Diff, Automatedon 06-01-2024 Absolute Lymph 2.85 X10 3/uL Normal 0.83-4.51 [facility] Comment on above: Performed By: #### L 700.8000 #### [facility] [address] [place], [address] Absolute Neut 5.5 X10 3/uL Normal 2.0-7.7 [facility] Comment on above: Performed By: #### L 700.8000 #### [facility] [address] [place], [address] Basophils/100 WBC (Bld) 0.9 % Normal 0-1 [facility] Comment on above: Performed By: #### L 700.8000 #### [facility] [address] [place], [address] Eosinophils/100 WBC (Bld) 1.4 % Normal 0-5 [facility] Comment on above: Performed By: #### L 700.8000 #### [facility] [address] [place], [address] Erythrocyte distribution width (RBC) [Ratio] 11.7 % Normal 11.6-14.6 [facility] Comment on above: Performed By: #### L 700.8000 #### [facility] [address] [place], [address] Hematocrit (Bld) [Volume fraction] 37.9 % Normal 37-47 [facility] Comment on above: Performed By: #### L 700.8000 #### [facility] [address] [place], [address] Hemoglobin (Bld) [Mass/Vol] 13.5 g/dL Normal 12.0-15.0 [facility] Comment on above: Performed By: #### L 700.8000 #### [facility] [address] [place], [address] IG% 0.200 Normal 0.0-0.9 [facility] Comment on above: Result Comment: IG% - Immature Granulocytes (promyelocytes, myelocytes and metamyelocytes) > 1% indicates that a LEFT SHIFT is Present. Performed By: #### L 700.8000 #### [facility] [address] [place], [address] Lymphocytes/100 WBC (Bld) 30.3 % Normal 19-41 [facility] Comment on above: Performed By: #### L 700.8000 #### [facility] [address] [place], [address] MCH (RBC) [Entitic mass] 31.5 pg Normal 27.0-32.0 [facility] Comment on above: Performed By: #### L 700.8000 #### [facility] [address] [place], [address] MCHC (RBC) [Mass/Vol] 35.6 g/dL Normal 32-36 [facility] Comment on above: Performed By: #### L 700.8000 #### [facility] [address] [place], [address] MCV (RBC) [Entitic vol] 88.6 fL Normal 81-99 [facility] Comment on above: Performed By: #### L 700.8000 #### [facility] [address] [place], [address] Monocytes/100 WBC (Bld) 8.4 % Normal 0-10 [facility] Comment on above: Performed By: #### L 700.8000 #### [facility] [address] [place], [address] Neutrophils/100 WBC (Bld) 58.8 % Normal 47-70 [facility] Comment on above: Performed By: #### L 700.8000 #### [facility] [address] [place], [address] Nucleated RBC (Bld) [#/Vol] 0 10*3/uL Normal 0-5 [facility] Comment on above: Performed By: #### L 700.8000 #### [facility] [address] [place], [address] Platelet mean volume (Bld) [Entitic vol] 9.5 fL Normal 6.2-12.0 [facility] Comment on above: Performed By: #### L 700.8000 #### [facility] [address] [place], [address] Platelets (Bld) [#/Vol] 260 10*3/uL Normal 150-450 [facility] Comment on above: Performed By: #### L 700.8000 #### [facility] [address] [place], [address] RBC (Bld) [#/Vol] 4.28 10*6/uL Normal 4.2-5.4 [facility] Comment on above: Performed By: #### L 700.8000 #### [facility] [address] [place], [address] RDW SD 37.4 fl Normal 35.1-43.9 [facility] Comment on above: Performed By: #### L 700.8000 #### [facility] [address] [place], [address] WBC (Bld) [#/Vol] 9.4 10*3/uL Normal 4.4-11.0 [facility] Comment on above: Performed By: #### L 700.8000 #### [facility] [address] [place], [address] Carbon dioxide, total [Moles /volume] in Central venous bloodOrdered By: Ariel East on 06-13-2025 CO2 [Moles/Vol] 20.0 mmol/L Low 21.0-32.0 [facility] Chloride assayOrdered By: Jose L mary ellen East on 06-13-2025 Chloride [Moles/Vol] 103 mmol/L 98-108 [facility] Comprehensive Metabolic Prof ilon 06-13-2025 Albumin [Mass/Vol] 4.6 g/dL Normal 3.5-5.0 [facility] Comment on above: Performed By: #### L 700.8000 #### [facility] [address] [place], [address] Albumin/Globulin [Mass ratio] 1.9 {ratio} Normal 0.9-2.4 [facility] Comment on above: Performed By: #### L 700.8000 #### [facility] [address] [place], [address] ALK PHOS 39 U/L Normal 35-104 [facility] Comment on above: Performed By: #### L 700.8000 #### [facility] [address] [place], [address] ALT [Catalytic activity/Vol] 13 U/L Normal <=34 [facility] Comment on above: Performed By: #### L 700.8000 #### [facility] [address] [place], [address] AST [Catalytic activity/Vol] 16 U/L Normal <=31 [facility] Comment on above: Performed By: #### L 700.8000 #### [facility] [address] [place], [address] Bilirubin [Mass/Vol] 0.60 mg/dL Normal 0.00-1.30 [facility] Comment on above: Performed By: #### L 700.8000 #### [facility] [address] [place], [address] BUN/CRE 21.0 RATIO High 10-20 [facility] Comment on above: Performed By: #### L 700.8000 #### [facility] [address] [place], [address] Calcium [Mass/Vol] 9.5 mg/dL Normal 7.6-11.0 [facility] Comment on above: Performed By: #### L 700.8000 #### [facility] [address] [place], [address] Chloride [Moles/Vol] 103 mmol/L Normal 98-108 [facility] Comment on above: Performed By: #### L 700.8000 #### [facility] [address] [place], [address] CO2 [Moles/Vol] 20.0 mmol/L Low 21.0-32.0 [facility] Comment on above: Performed By: #### L 700.8000 #### [facility] [address] [place], [address] Creatinine [Mass/Vol] 0.75 mg/dL Normal 0.70-1.20 [facility] Comment on above: Performed By: #### L 700.8000 #### [facility] [address] [place], [address] ECRCL 90.69 ml/min Normal 50-250 [facility] Comment on above: Performed By: #### L 700.8000 #### [facility] [address] [place], [address] GAP 13 Normal 5-15 [facility] Comment on above: Performed By: #### L 700.8000 #### [facility] [address] [place], [address] GFR/1.73 sq M.predicted among non-blacks MDRD (S/P/Bld) [Vol rate/Area] 114 mL/min/{1.73_m2} Normal >60 [facility] Comment on above: Result Comment: mL/m in/1.73m2 CKD-EPI Creatinine Equation (2020) Performed By: #### L 700.8000 #### [facility] [address] [place], [address] Globulin (S) [Mass/Vol] 2.5 g/dL Normal 2.2-4.2 [facility] Comment on above: Performed By: #### L 700.8000 #### [facility] [address] [place], [address] Glucose [Mass/Vol] 94 mg/dL Normal 70-99 [facility] Comment on above: Performed By: #### L 700.8000 #### [facility] [address] [place], [address] Potassium [Moles/Vol] 3.5 mmol/L Normal 3.3-5.1 [facility] Comment on above: Performed By: #### L 700.8000 #### [facility] [address] [place], [address] Sodium [Moles/Vol] 136 mmol/L Normal 133-145 [facility] Comment on above: Performed By: #### L 700.8000 #### [facility] [address] [place], [address] T PROT 7.0 g/dL Normal 5.9-8.4 [facility] Comment on above: Performed By: #### L 700.8000 #### [facility] [address] [place], [address] Urea nitrogen [Mass/Vol] 16 mg/dL Normal 4-19 [facility] Comment on above: Performed By: #### L 700.8000 #### [facility] [address] [place], [address] Emergency Department Summary on 06-13-2025 Emergency Department Summary [facility] Medical Records Department [address] [place] [address] Emergency Department Summary 06/13/25 MR#: [id number] Acct: [id number] Name: YESSICA SOLORZANO Rep #: [id number] : 2000 24 From: Ariel East DO [...] 0 current occupational status: employed current occupation: [employer] Smoking Status: Never smoker seatbelt use: always [...] 98 100 Oxygen Delivery Method Room Air MDM MDM MDM Narrative Medical decision making narrative: HISTORY OF [...] reviewed, Vital signs reviewed Constitutional: please see mdm HENT: MMM Eyes: Pupils equal round and [...] prior lab and imaging studies. Reviewed prior TOBACCO BLENDER surgical report. Factors affecting care: History of ectopic , unilateral salpingectomy Social determinants of health: none History obtained from others: none Consults: OBGYN (Dr. Goldstein) [facility] Narrative: The patient was initially I [...] or obvious adnexal mass. Discussed case with TOBACCO BLENDER. Recommended discharge given reassuring ultrasound results and [...] This excludes (more content not included)... Normal [facility] Eosinophil percentageOrdered By: Ariel East on 06-13-2025 Eosinophils/100 WBC (Bld) 1.4 % 0-5 [facility] Erythrocyte distribution wid th ratioOrdered By: Ariel East on 06-13-2025 Erythrocyte distribution width (RBC) [Ratio] 11.7 % 11.6-14.6 [facility] Erythrocyte distribution wid th standard deviationOrdered By: Ariel East on 06-13-2025 Erythrocyte distribution width (RBC) [Ratio] 37.4 fl 35.1-43.9 [facility] Glomerular filtration rate ( GFR) estimation/1.73 sq m using serum, plasma, or whole bOrdered By: Ariel East on 06-13-2025 GFR/1.73 sq M.predicted among non-blacks MDRD (S/P/Bld) [Vol rate/Area] 114 mL/min/{1.73_m2} >60 [facility] Comment on above: mL/min/1.73m2 CKD-EP I Creatinine Equation (2020) Hematocrit Auto (Bld) [Volum e fraction]Ordered By: Ariel East on 06-13-2025 Hematocrit (Bld) [Volume fraction] 37.9 % 37-47 [facility] Hemoglobin measurementOrdere d By: Ariel East on 06-13-2025 Hemoglobin (Bld) [Mass/Vol] 13.5 g/dL 12.0-15.0 [facility] Immature granulocytes/100 WB C Auto (Bld)Ordered By: Ariel East on 06-13-2025 Immature granulocytes/100 WBC (Bld) 0.200 % 0.0-0.9 [facility] Comment on above: IG% - Immature Granu locytes (promyelocytes, myelocytes and metamyelocytes) > 1% indicates that a LEFT SHIFT is Present. Ketones Test strip Ql (U)Ord ered By: Ariel East on 06-13-2025 Ketones Ql (U) Negative Negative [facility] - Chemistry and C hemistry - challengeOrdered By: Ariel Eats on 06-13-2025 AST [Catalytic activity/Vol] 16 U/L <32 [facility] Lipaseon 06-13-2025 Lipase [Catalytic activity/Vol] 48 U/L Normal 13-75 [facility] Comment on above: Result Comment: Rusty mcgee note: LIPASE revised reference range effective 23. New Lipase methodology. Expected to produce lower values than the previous assay method. NEW Reference Range: 13 - 75 U/L Performed By: #### L 700.8000 #### [facility] [place], [address] Lipase measurementOrdered By : Ariel East on 06-13-2025 Lipase [Catalytic activity/Vol] 48 U/L 13-75 [facility] Comment on above: Please note:LIPASE r evised reference range effective 23. New Lipase methodology. Expected to produce lower values than the previous assay method. NEW Reference Range: 13 - 75 U/L MCV (mean corpuscular volume ) determinationOrdered By: Ariel East on 06-13-2025 MCV (RBC) [Entitic vol] 88.6 fL 81-99 [facility] Mean corpuscular hemoglobin (MCH) determinationOrdered By: Ariel East on 06-13-2025 MCH (RBC) [Entitic mass] 31.5 pg 27.0-32.0 [facility] Mean corpuscular hemoglobin concentration (MCHC) determinationOrdered By: Ariel East on 06-13-2025 MCHC (RBC) [Mass/Vol] 35.6 g/dL 32-36 [facility] Mean platelet volume determi nationOrdered By: Ariel East on 06-13-2025 Platelet mean volume (Bld) [Entitic vol] 9.5 fL 6.2-12.0 [facility] Microscopic analysis of urin e for red blood cells (RBC)Ordered By: Ariel East on 06-13-2025 Microscopic analysis of urine for red blood cells (RBC) 0-5 SEEN /hpf 0-5 [facility] Monocyte percentageOrdered B y: Ariel East on 06-13-2025 Monocytes/100 WBC (Bld) 8.4 % 0-10 [facility] Mucus LM Ql (Urine sed)Order ed By: Ariel East on 06-13-2025 Mucus Ql (Urine sed) 0 SEEN /hpf [facility] Neutrophil percentageOrdered By: Ariel East on 06-13-2025 Neutrophils/100 WBC (Bld) 58.8 % 47-70 [facility] Nitrite Test strip Ql (U)Ord ered By: Ariel East on 06-13-2025 Nitrite Ql (U) Negative Negative [facility] Nucleated red blood cell per centageOrdered By: Ariel East on 06-13-2025 Nucleated RBC/100 WBC (Bld) [Ratio] 0 % 0-5 [facility] Platelet countOrdered By: Jose L East on 06-13-2025 Platelets (Bld) [#/Vol] 260 10*3/uL 150-450 [facility] Potassium measurement (mass/ volume)Ordered By: Ariel East on 06-13-2025 Potassium (Unsp spec) [Mass/Vol] 3.5 mmol/L 3.3-5.1 [facility] Protein Test strip Ql (U)Ord ered By: Ariel East on 06-13-2025 Protein Ql (U) 15 mg/dl High Negative [facility] RBC Auto (Bld) [#/Vol]Ordere d By: Ariel East on 06-13-2025 RBC (Bld) [#/Vol] 4.28 10*6/uL 4.2-5.4 [facility] Serum creatinine measurement (mass/volume)Ordered By: Ariel East on 06-13-2025 Creatinine [Mass/Vol] 0.75 mg/dL 0.70-1.20 [facility] Serum globulin measurementOr dered By: Ariel East on 06-13-2025 Globulin (S) [Mass/Vol] 2.5 g/dL 2.2-4.2 [facility] Serum glucose measurement (m ass/volume)Ordered By: Ariel East on 06-13-2025 Glucose [Mass/Vol] 94 mg/dL 70-99 [facility] Serum human chorionic gonado tropin detection for pregnancyOrdered By: Ariel East on 06-13-2025 HCG ( test) Ql 1158 mIU/mL High <9 [facility] Comment on above: Gestational Age0.2-1 Week: 5-50 mIU/mL1-2 Weeks: 50-500 mIU/mL2-3 Weeks: 100-5000 mIU/mL3-4 Weeks: 500-10,000 mIU/mL4-5 Weeks:1000-50,000 mIU/mL5-6 Weeks: 10,000-100,000 mIU/mL6-8 Weeks: 15,000-200,000 mIU/mL2-3 Months:10,000-100,000 mIU/mL Serum or plasma alanine mcfadden otransferase (ALT) measurementOrdered By: Ariel East on 06-13-2025 ALT [Catalytic activity/Vol] 13 U/L <35 [facility] Serum or plasma albumin eliana urement (mass/volume)Ordered By: Ariel East on 06-13-2025 Albumin [Mass/Vol] 4.6 g/dL 3.5-5.0 [facility] Serum or plasma albumin/glob ulin mass ratioOrdered By: Ariel East on 06-13-2025 Albumin/Globulin [Mass ratio] 1.9 {ratio} 0.9-2.4 [facility] Serum or plasma alkaline [place] sphatase measurementOrdered By: Ariel East on 06-13-2025 ALP [Catalytic activity/Vol] 39 U/L 35-104 [facility] Serum or plasma calcium eliana urement (mass/volume)Ordered By: Ariel East on 06-13-2025 Calcium [Mass/Vol] 9.5 mg/dL 7.6-11.0 [facility] Serum or plasma urea nitroge n measurement (mass/volume)Ordered By: Ariel East on 06-13-2025 Urea nitrogen [Mass/Vol] 16 mg/dL 4-19 [facility] Sodium levelOrdered By: Kady East on 06-13-2025 Sodium [Moles/Vol] 136 mmol/L 133-145 [facility] Squamous epithelial cells de tection in urine sediment by light microscopyOrdered By: Ariel East on 06-13-2025 Epithelial cells.squamous LM Ql (Urine sed) 0-5 SEEN /hpf 5-10 [facility] Total proteinOrdered By: Ursula East on 06-13-2025 Protein [Mass/Vol] 7.0 g/dL 5.9-8.4 [facility] Transvaginal w/Preg USon Transvaginal w/Preg US [facility] Imaging Services [address] [place], [place] [address] Transvaginal w/Preg US MR#: [id number] Acct: [id number] Name: YESSICA SOLORZANO Rep #: [id number] : 2000 F 24 From: Mello Matthews MD PCP: Care Physician,No Primary Status: [facility] ER Study: Transvaginal w/Preg US Date of Exam: 06/13/25 Exam# [id number] Ordering Dr: Ariel East DO PROCEDURE: TRANSVAGINAL [...] beta HCG levels is recommended. Reading Location: [facility] CC: Dr. Ariel East DO; No Primary Care Physician Data Librarian: Signed Normal [facility] Urinalysis, Completeon 06-13 EPI,SQUAMOUS 0-5 SEEN Normal 5-10 [facility] Comment on above: Order Comment: CLEAN CATCH Performed By: #### L 700.8000 #### [facility] [address] [place], [address] RBC 0-5 SEEN Normal 0-5 [facility] Comment on above: Order Comment: CLEAN CATCH Performed By: #### L 700.8000 #### [facility] [address] [place], [address] WBC 0-5 SEEN Normal 0-5 [facility] Comment on above: Order Comment: CLEAN CATCH Performed By: #### L 700.8000 #### [facility] [address] [place], [address] BACTERIA 0 SEEN Normal None Seen [facility] Comment on above: Order Comment: CLEAN CATCH Performed By: #### L 700.8000 #### [facility] [address] [place], [address] Mucus Ql (Urine sed) 0 SEEN Normal [facility] Comment on above: Order Comment: CLEAN CATCH Performed By: #### L 700.8000 #### [facility] [address] [place], [address] Urine clarityOrdered By: Ursula East on 06-13-2025 Clarity (U) Clear Clear [facility] Urine color determinationOrd ered By: Ariel East on 06-13-2025 Color (U) Straw Yellow [facility] Urine glucose detectionOrder ed By: Ariel East on 06-13-2025 Glucose Ql (U) Normal mg/dl Normal [facility] Urine leukocyte esterase det ection by dipstickOrdered By: Ariel East on 06-13-2025 Leukocyte esterase Test strip Ql (U) Negative Negative [facility] Urine pHOrdered By: Ariel fierro on 06-13-2025 pH (U) 6.0 [pH] 5.0 - 8.0 [facility] Urine sediment bacteria coun t by microscopy (number/high power field)Ordered By: Ariel East on 06-13-2025 Bacteria LM.HPF (Urine sed) [#/Area] 0 /[HPF] None Seen [facility] Urine specific gravity measu rementOrdered By: Ariel East on 06-13-2025 Specific gravity (U) [Rel density] 1.010 1.002-1.030 [facility] Urine urobilinogen measureme ntOrdered By: Ariel East on 06-13-2025 Urobilinogen Ql (U) Normal mg/dl Normal [facility] White blood cell (WBC) count Ordered By: Ariel East on 06-13-2025 WBC (Bld) [#/Vol] 9.4 10*3/uL 4.4-11.0 [facility] White blood cell countOrdere d By: Ariel East on 06-13-2025 White blood cell count 0-5 SEEN /hpf 0-5 [facility] hCG Titer Quant., Serumon HCG QUANT. 1158 mIU/mL High <9 non-preg [facility] Comment on above: Result Comment: Gest ational Age 0.2-1 Week: 5-50 mIU/mL 1-2 Weeks: 50-500 mIU/mL 2-3 Weeks: 100-5000 mIU/mL 3-4 Weeks: 500-10,000 mIU/mL 4-5 Weeks:1000-50,000 mIU/mL 5-6 Weeks: 10,000-100,000 mIU/mL 6-8 Weeks: 15,000-200,000 mIU/mL 2-3 Months:10,000-100,000 mIU/mL Performed By: #### L 700.8000 #### [facility] [address] [place], [address] HH, Hemoglobin AND Hematocri ton 06-11-2025 Hematocrit (Bld) [Volume fraction] 36.3 % Low 37-47 [facility] Comment on above: Result Comment: WRON G ORDER, REG PREV. CROSSED OVER ORDER Performed By: #### L 100.0600 #### [facility] [address] [place], [address] Hemoglobin (Bld) [Mass/Vol] 13.0 g/dL Normal 12.0-15.0 [facility] Comment on above: Result Comment: MORELIA Arshad ORDER, REG PREV. CROSSED OVER ORDER Performed By: #### L 100.0600 #### [facility] [address] [place], [address] Serum human chorionic gonado tropin detection for pregnancyOrdered By: Page Goldstein on 06-11-2025 HCG ( test) Ql 618 mIU/mL High <9 [facility] Comment on above: Gestational Age0.2-1 Week: 5-50 mIU/mL1-2 Weeks: 50-500 mIU/mL2-3 Weeks: 100-5000 mIU/mL3-4 Weeks: 500-10,000 mIU/mL4-5 Weeks:1000-50,000 mIU/mL5-6 Weeks: 10,000-100,000 mIU/mL6-8 Weeks: 15,000-200,000 mIU/mL2-3 Months:10,000-100,000 mIU/mL hCG Titer Quant., Serumon HCG QUANT. 618 mIU/mL High <9 non-preg [facility] Comment on above: Result Comment: Gest ational Age 0.2-1 Week: 5-50 mIU/mL 1-2 Weeks: 50-500 mIU/mL 2-3 Weeks: 100-5000 mIU/mL 3-4 Weeks: 500-10,000 mIU/mL 4-5 Weeks:1000-50,000 mIU/mL 5-6 Weeks: 10,000-100,000 mIU/mL 6-8 Weeks: 15,000-200,000 mIU/mL 2-3 Months:10,000-100,000 mIU/mL Performed By: #### L 700.8000 #### [facility] [address] [place], [address] Serum human chorionic gonado tropin detection for pregnancyOrdered By: Page Goldstein on 06-09-2025 HCG ( test) Ql 273 mIU/mL High <9 [facility] Comment on above: Gestational Age0.2-1 Week: 5-50 mIU/mL1-2 Weeks: 50-500 mIU/mL2-3 Weeks: 100-5000 mIU/mL3-4 Weeks: 500-10,000 mIU/mL4-5 Weeks:1000-50,000 mIU/mL5-6 Weeks: 10,000-100,000 mIU/mL6-8 Weeks: 15,000-200,000 mIU/mL2-3 Months:10,000-100,000 mIU/mL hCG Titer Quant., Serumon HCG QUANT. 273 mIU/mL High <9 non-preg [facility] Comment on above: Result Comment: Gest ational Age 0.2-1 Week: 5-50 mIU/mL 1-2 Weeks: 50-500 mIU/mL 2-3 Weeks: 100-5000 mIU/mL 3-4 Weeks: 500-10,000 mIU/mL 4-5 Weeks:1000-50,000 mIU/mL 5-6 Weeks: 10,000-100,000 mIU/mL 6-8 Weeks: 15,000-200,000 mIU/mL 2-3 Months:10,000-100,000 mIU/mL Performed By: #### L 700.8000 #### [facility] [place], [address] Test Fixture Assembler Office Visit Reporton 01-28-2025 Test Fixture Assembler Office Visit Report [facility] [address], [address] [place] [address] OFFICE VISIT Date of Service: 01/28/25 MR#: [id number] Acct: [id number] Name: YESSICA SOLORZANO Rep #: [id number] : 2000 Provider: Dr. Page murray MD Age/Sex: 24/F Location: [facility] Status: Signed Intake Vital Signs 01/12/25 22:56 01/28/25 12:59 Height 5 ft 3 in 5 ft 3 in Weight: 124 lb 6 oz BMI 22.0 BP 142/88 H Intake Visit Reasons: 2wk post op Marketing Program Manager Required: No Is patient in pain?: No Allergies No Known Allergies Allergy (Verified 01/28/25 13:00) Post menopausal: No Patient : No : No PFSH Surgical History (Updated 01/13/25 @ 08:33 by Leslie Pinon) History of unilateral salpingectomy Social History (Updated 01/28/25 @ 13:02 by Cherri Kumar) number of children: 0 current occupational status: employed current occupation: [employer] Smoking Status: Never smoker seatbelt use: always [...] Status: Acute Comment: left salpingectomy Medications: Discontinued oxycodone-acetaminophe n 5-325 mg (Percocet) Discontinued Reason: Pt no longer taking 1 TAB PO Q4H 7 days PRN 20 tabs 0RF pain O00.90 - Unspecified ectopic without intrauterine Plan discussed follow up fore new ob, plan visit at 7-8 weeks new ob and consider serial hcgs 01/28/25 1345 Date Page Vivas Signature: Date (if applicable) CC: Normal [facility] MR/POSTOP.ANEon 01-13-2025 MR/POSTOP.[facility] Medical Records Department [address] [place] [address] Anesthesia Postop Eval I 01/13/2552 MR#: [id number] Acct: [id number] Name: YESSICA SOLORZANO Rep #: [id number] : 2000 From: Ravinder Garcia MD PCP: Care Physician,No Primary Status:[facility] Y Race: C Location: [facility] Anesthesia: Postop Eval I Current Vital Signs [...] Eval 1 completed: Yes 01/13/2553 Date Ravinder Vivas Signature: Date CC: Signed Normal [facility] MR/[id number] 01-13-2025 MR/POSTOPAN2 [facility] Medical Records Department [facility] [place] [address] Anesthesia Postop Eval II 01/13/2554 MR#: [id number] Acct: [id number] Name: YESSICA SOLORZANO Rep #: [id number] : 2000 From: Ravinder Garcia MD PCP: Care Physician,No Primary Status:REG [facility] [place] Y Race: C Location: [facility] Anesthesia Postop Eval I Sum Postop Eval [...] No Vomiting: No 01/13/25 0055 Date [facility] Date CC: Signed Normal [facility] Surgery Specimen Level [place] 01-13-2025 Surgery Specimen Level IV ---- Patient Age/Sex Location Account Attending Physician ---- YESSICA SOLORZANO 24 [facility] [id number] Dr. Page Goldstein MD ---- Specimen: [id number] Received: 01/13/25 Status: RAJWINDER Lawson Num: [id number] Spec Type: ECTOPIC Subm Dr: Dr. Page Goldstein MD HEADER OPERATION: Laparoscopic, removal ectopic, left salpingectomy PRE-OP DIAGNOSIS: Ectopic , pelvic pain TISSUE SUBMITTED: A- Left fallopian tube ---- MICROSCOPIC DIAGNOSIS A. Left fallopian tube, "ectopic ", excision: * Luminal chorionic villi, decidua and [...] possible chorionic villi. No parts are discovered. Hogshead Liner sections are submitted in A1-3 (fimbriated end in A3). [facility] 01/16/2025 CPT:34189 ---- Patient Age/Sex Location Account Attending Physician ---- YESSICA SOLORZANO 24/ [facility] [id number] Dr. Page Goldstein MD ---- Signed (signature on file) Dr. Sirena Mosqueda MD 01/16/25 1726 ---- Normal [facility] Comment on above: Performed By: #### L 700.8000 #### [facility] Laboratory [address] [place], [address] [facility] Blood Type, Patienton 01-12-2025 ABO and Rh group Nom (Bld) Blood group O Rh(D) positive Normal [facility] Comment on above: Performed By: #### L 500.2500, B882-1, L100.0100, BtABORH, L700.8000 #### [facility] Laboratory [address] [place], [address] Absolute neutrophil countOrd ered By: Ray Rapp on 01-12-2025 Neutrophils (Bld) [#/Vol] 5.8 10*3/uL 2.0-7.7 [facility] Anion gap in Serum or Plasma Ordered By: Ray Rapp on 01-12-2025 Anion gap [Moles/Vol] 13 mmol/L 5-15 [facility] Automated blood erythrocyte countOrdered By: Ray Rapp on 01-12-2025 RBC (Bld) [#/Vol] 4.36 10*6/uL Normal 4.2-5.4 [facility] Comment on above: Performed By: #### L 500.2500, B882-1, L100.0100, BtABORH, L700.8000 #### [facility] Laboratory [address] [place], [place], [address] Automated blood hematocrit ( percentage)Ordered By: Ray Rapp on 01-12-2025 Hematocrit (Bld) [Volume fraction] 37.7 % Normal 37-47 [facility] Comment on above: Performed By: #### L 500.2500, B882-1, L100.0100, BtABORH, L700.8000 #### [facility] Laboratory [address] [place], [address] Automated lymphocyte count a s percentage of total leukocytesOrdered By: Rya Rapp on 01-12-2025 Lymphocytes/100 WBC (Bld) 28.5 % Normal 19-41 [facility] Comment on above: Performed By: #### L 500.2500, B882-1, L100.0100, BtABORH, L700.8000 #### [facility] Laboratory [address] [place], [address] [id number] 01-12-2025 ABO and Rh group Nom (Bld) TNP Normal [facility] Comment on above: Performed By: #### L 500.2500, B882-1, L100.0100, BtABORH, L700.8000 #### [facility] Laboratory [address] [place], [address] BUN/creatinine ratioOrdered By: Ray Rapp on 01-12-2025 Urea nitrogen/Creatinine [Mass ratio] 12.6 mg/mg 10- [facility] Basic Metabolic Profile (BMP )on 01-12-2025 BUN/CRE 12.6 RATIO Normal - [facility] Comment on above: Performed By: #### L 700.8000 #### [facility] Laboratory [address] [place], [address] Calcium [Mass/Vol] 9.1 mg/dL Normal 7.6-11.0 [facility] Comment on above: Performed By: #### L 700.8000 #### [facility] Laboratory [address] [place], [address] Chloride [Moles/Vol] 102 mmol/L Normal 98-108 [facility] Comment on above: Performed By: #### L 700.8000 #### [facility] Laboratory [address] [place], [address] CO2 [Moles/Vol] 21.3 mmol/L Normal 21.0-32.0 [facility] Comment on above: Performed By: #### L 700.8000 #### [facility] Laboratory [address] [place], [address] Creatinine [Mass/Vol] 0.72 mg/dL Normal 0.70-1.20 [facility] Comment on above: Performed By: #### L 700.8000 #### [facility] [address] [place], [address] ECRCL 98.81 ml/min Normal 50-250 [facility] Comment on above: Performed By: #### L 700.8000 #### [facility] Laboratory [address] [place], [address] GAP 13 Normal 5-15 [facility] Comment on above: Performed By: #### L 700.8000 #### [facility] Laboratory [address] [place], [address] GFR/1.73 sq M.predicted among non-blacks MDRD (S/P/Bld) [Vol rate/Area] 118 mL/min/{1.73_m2} Normal >60 [facility] Comment on above: Result Comment: mL/m in/1.73m2 CKD-EPI Creatinine Equation (2020) Performed By: #### L 700.8000 #### [facility] Laboratory [address] [place], [address] Glucose [Mass/Vol] 90 mg/dL Normal 70-99 [facility] Comment on above: Performed By: #### L 700.8000 #### [facility] Laboratory [address] [place], [address] Potassium [Moles/Vol] 3.4 mmol/L Normal 3.3-5.1 [facility] Comment on above: Performed By: #### L 700.8000 #### [facility] [address] [place], [address] Sodium [Moles/Vol] 136 mmol/L Normal 133-145 [facility] Comment on above: Performed By: #### L 700.8000 #### [facility] [address] [place], [address] Urea nitrogen [Mass/Vol] 9 mg/dL Normal 4-19 [facility] Comment on above: Performed By: #### L 700.8000 #### [facility] Laboratory [address] [place], [address] Basophil percentageOrdered B y: Ray Rapp on 01-12-2025 Basophils/100 WBC (Bld) 0.8 % Normal 0-1 [facility] Comment on above: Performed By: #### L 500.2500, B882-1, L100.0100, BtABORH, L700.8000 #### [facility] Laboratory [address] [place], [address] Bilirubin Test strip Ql (U)O rdered By: Ray Martinarmani on 01-12-2025 Bilirubin Ql (U) Negative Negative [facility] CBC W/Diff, Automatedon - Absolute Lymph 2.66 X10 3/uL Normal 0.83-4.51 [facility] Comment on above: Performed By: #### L 500.2500, B882-1, L100.0100, BtABORH, L700.8000 #### [facility] Laboratory [address] [place], [address] Absolute Neut 5.8 X10 3/uL Normal 2.0-7.7 [facility] Comment on above: Performed By: #### L 500.2500, B882-1, L100.0100, BtABORH, L700.8000 #### [facility] Laboratory [address] [place], [address] IG% 0.400 Normal 0.0-0.9 [facility] Comment on above: Result Comment: IG% - Immature Granulocytes (promyelocytes, myelocytes and metamyelocytes) > 1% indicates that a LEFT SHIFT is Present. Performed By: #### L 500.2500, B882-1, L100.0100, BtABORH, L700.8000 #### [facility] Laboratory [address] [place], [place], [address] Nucleated RBC (Bld) [#/Vol] 0 10*3/uL Normal 0-5 [facility] Comment on above: Performed By: #### L 500.2500, B882-1, L100.0100, BtABORH, L700.8000 #### [facility] Laboratory [address] [place], [address] RDW SD 41.7 fl Normal 35.1-43.9 [facility] Comment on above: Performed By: #### L 500.2500, B882-1, L100.0100, BtABORH, L700.8000 #### [facility] Laboratory [address] [place], [address] CNOVon 01-12-2025 CNOV Office Visit (UCWSTR ) YESSICA SOLORZANO ([id number]) 2000 F Date Time Provider Department 01/12/25 5:00 PM [facility] During your visit today, we recorded the following information about you: Nette Miller, HARDY.JEFFREY 01/12/2025 5:16 PM Signed Called to triage patient by PSS staff 24 year old female who is 5 weeks Has been complaining of vaginal bleeding, x 2 weeks Today she developed pelvic pain and cramping I need to make sure that I don't have an ectopic" Discussed limitations of express care, Referred to ED Allergies As of Date: 01/12/2025 (Not on File) Date Reviewed: Never Reviewed Primary Visit Diagnosis:Vaginal bleeding in patient at less than 20 weeks gestation (HCC) [O20.9] Problem List As Of Date: 01/12/2025 (None) Encounter Status:Closed by NETTE MILLER on 01/12/25 Normal [facility] Carbon dioxide, total [Moles /volume] in Central venous bloodOrdered By: Ray Rapp on 01-12-2025 CO2 [Moles/Vol] 21.3 mmol/L 21.0-32.0 [facility] Chloride assayOrdered By: Richardson Rapp on 01-12-2025 Chloride [Moles/Vol] 102 mmol/L 98-108 [facility] Discharge Instructionon 12-30 Discharge Instruction [facility] Medical Records Department [address] [place] [address] Instructions for Home/Discharge Instructions 01/12/25 2321 MR#: [id number] Acct: [id number] Name: YESSICA SOLORZANO Rep #: [id number] : 2000 From: Page Goldstein MD PCP: Care Physician,No Primary Status:REG [facility] [place] Discharge Instructions Diet Discharge Diet: No restrictions [...] Provider: Care Physician,No Primary Instructions Print Language: Kinyarwanda Discharge Orders/Prescriptions Prescriptions: New oxycodone-acetaminophe n [Percocet] 5-325 mg tablet 1 tab PO Q4H PRN (Reason: pain) 7 Days Qty: 20 0RF Referrals / Follow Up: Care Physician,No Primary [Primary Care Provider] - Disposition Disposition (needs filled in before D/C Order can be placed): Home, Self Care 01/13/25 0036 Page Goldstein MD CC: No Primary Care Physician Signed Normal [facility] Emergency Department Summary on 01-12-2025 Emergency Department Summary [facility] Medical Records Department [address] [place] [address] Emergency Department Summary 01/12/25 MR#: [id number] Acct: [id number] Name: YESSICA SOLORZANO Rep #: [id number] : 2000 24 From: Ray Rapp DO [...] but has not followed up with any TOBACCO BLENDER yet. Patient states this is her first [...] % (Auto) 61.7 Lymph % (Auto) 28.5 [place] % (Auto) 7.6 Eos % (Auto) 1.0 Baso % (Auto) 0.8 Absolute Neuts (auto) 5.8 Absolute Lymphs (auto) 2.66 Nucleated RBC % 0 Sodium 136 (more content not included)... Normal [facility] Eosinophil percentageOrdered By: Ray Rapp on 01-12-2025 Eosinophils/100 WBC (Bld) 1.0 % Normal 0-5 [facility] Comment on above: Performed By: #### L 500.2500, B882-1, L100.0100, BtABORH, L700.8000 #### [facility] Laboratory [address] [place], [place], [address] Epithelial cells.squamous LM Ql (Urine sed)Ordered By: Ray Rapp on 01-12-2025 Epithelial cells.squamous LM.HPF (Urine sed) [#/Area] 0 /[HPF] 5-10 [facility] Erythrocyte distribution wid th (RBC) [Ratio]Ordered By: Ray Rapp on 01-12-2025 Erythrocyte distribution width (RBC) [Entitic vol] 41.7 fL 35.1-43.9 [facility] Erythrocyte distribution wid th ratioOrdered By: Ray Rapp on 01-12-2025 Erythrocyte distribution width (RBC) [Ratio] 13.2 % Normal 11.6-14.6 [facility] Comment on above: Performed By: #### L 500.2500, B882-1, L100.0100, BtABORH, L700.8000 #### [facility] Laboratory [address] [place], [place], [address] Estimation of creatinine vita aranceOrdered By: Ray Rapp on 01-12-2025 Estimated Creatinine Clearance Calc 98.81 ml/min 50-250 [facility] GFR/1.73 sq M.predicted elvis g non-blacks MDRD (S/P/Bld) [Vol rate/Area]Ordered By: Ray Rapp on 01-12-2025 Estimated GFR (MDRD) Non-Af Amer 118 >60 [facility] Comment on above: mL/min/1.73m2 CKD-EP I Creatinine Equation (2020) Glucose Ql (U)Ordered By: Richardson Rapp on 01-12-2025 Urine Glucose (UA) Normal mg/dl Normal [facility] H AND P Exam - OB/GYNon 12-30 H&P Exam - TOBACCO BLENDER [facility] Medical Records Department [address] [place] [address] H P Exam - TOBACCO BLENDER 01/12/25 2314 MR#: [id number] Acct: [id number] Name: YESSICA SOLORZANO Rep #: [id number] : 2000 24 From: Page Goldstein MD PCP: Care Physician,No Primary Status:REG [facility] [place] Location: [facility] HPI - General HPI Narrative YESSICA SOLORZANO, [...] has no history of pelvic infection. PFSH PFS Medical History no medical history Allergy/AdvReac Type [...] and wis (more content not included)... Normal [facility] HCG ( test) QlOrder ed By: Ray Rapp on 01-12-2025 Human Chorionic Gonadotropin, Quant 3703 mIU/mL High <9 [facility] Comment on above: Gestational Age0.2-1 Week: 5-50 mIU/mL1-2 Weeks: 50-500 mIU/mL2-3 Weeks: 100-5000 mIU/mL3-4 Weeks: 500-10,000 mIU/mL4-5 Weeks:1000-50,000 mIU/mL5-6 Weeks: 10,000-100,000 mIU/mL6-8 Weeks: 15,000-200,000 mIU/mL2-3 Months:10,000-100,000 mIU/mL Hemoglobin measurementOrdere d By: Ray Rapp on 01-12-2025 Hemoglobin (Bld) [Mass/Vol] 13.5 g/dL Normal 12.0-15.0 [facility] Comment on above: Performed By: #### L 500.2500, B882-1, L100.0100, BtABORH, L700.8000 #### [facility] Laboratory [address] [place], [address] Immature granulocytes/100 WB C Auto (Bld)Ordered By: Ray Rapp on 01-12-2025 Immature granulocytes/100 WBC (Bld) 0.400 % 0.0-0.9 [facility] Comment on above: IG% - Immature Granu locytes (promyelocytes, myelocytes and metamyelocytes) > 1% indicates that a LEFT SHIFT is Present. Ketones Test strip Ql (U)Ord ered By: Ray Rapp on 01-12-2025 Ketones Ql (U) 50 mg/dl High Negative [facility] Lymphocytes Auto (Unsp spec) [#/Vol]Ordered By: Ray Rapp on 01-12-2025 Lymphocytes (Bld) [#/Vol] 2.66 10*3/uL 0.83-4.51 [facility] MCV (mean corpuscular volume ) determinationOrdered By: Ray Rapp on 01-12-2025 MCV (RBC) [Entitic vol] 86.5 fL Normal 81-99 [facility] Comment on above: Performed By: #### L 500.2500, B882-1, L100.0100, BtABORH, L700.8000 #### [facility] Laboratory [address] [place], [place], [id number] Mean corpuscular hemoglobin (MCH) determinationOrdered By: Ray Rapp on 01-12-2025 MCH (RBC) [Entitic mass] 31.0 pg Normal 27.0-32.0 [facility] Comment on above: Performed By: #### L 500.2500, B882-1, L100.0100, BtABORH, L700.8000 #### [facility] Laboratory [address] [place], [place], [address] Mean corpuscular hemoglobin concentration (MCHC) determinationOrdered By: Ray Rapp on 01-12-2025 MCHC (RBC) [Mass/Vol] 35.8 g/dL Normal 32-36 [facility] Comment on above: Performed By: #### L 500.2500, B882-1, L100.0100, BtABORH, L700.8000 #### [facility] Laboratory [address] [place], [place], [phone] Mean platelet volume determi nationOrdered By: Ray Rapp on 01-12-2025 Platelet mean volume (Bld) [Entitic vol] 9.3 fL Normal 6.2-12.0 [facility] Comment on above: Performed By: #### L 500.2500, B882-1, L100.0100, BtABORH, L700.8000 #### [facility] Laboratory [address] [place], [place], [address] Microscopic analysis of urin e for red blood cells (RBC)Ordered By: Ray Rapp on 01-12-2025 Urine RBC 0-5 SEEN /hpf 0-5 [facility] Monocyte percentageOrdered B y: Ray Rapp on 01-12-2025 Monocytes/100 WBC (Bld) 7.6 % Normal 0-10 [facility] Comment on above: Performed By: #### L 500.2500, B882-1, L100.0100, BtABORH, L700.8000 #### [facility] Laboratory [address] [place], [place], [address] Mucus LM Ql (Urine sed)Order ed By: Ray Rapp on 01-12-2025 Mucus Ql (Urine sed) 0 SEEN /hpf [facility] Neutrophil percentageOrdered By: Ray Rapp on 01-12-2025 Neutrophils/100 WBC (Bld) 61.7 % Normal 47-70 [facility] Comment on above: Performed By: #### L 500.2500, B882-1, L100.0100, BtABORH, L700.8000 #### [facility] Laboratory [address] [place], [place], [address] Nitrite Test strip Ql (U)Ord ered By: Ray Rapp on 01-12-2025 Nitrite Ql (U) Negative Negative [facility] Nucleated red blood cell per centageOrdered By: Ray Rapp on 01-12-2025 Nucleated RBC/100 WBC (Bld) [Ratio] 0 % 0-5 [facility] Operative Reporton Operative Report [facility] Medical Records Department [address] [place] [address] Operative Report 01/12/25 2320 MR#: [id number] Acct: [id number] Name: YESSICA SOLORZANO Rep #: [id number] : 2000 From: Page Goldstein MD PCP: Care Physician,No Primary Status:REG [facility] [place] Location: [facility] Problems Associated Problem List Diagnoses (1) Ectopic : Procedures Urinary/Genital 52xxx-59xxx: 87633 Treat ectopic lapro w/ salpingectomy Operative Report (Standard) Operative Information Date of Procedure: 01/12/25 Pre-Operative Diagnosis: see problem list Post-Operative Diagnosis: same ruptured left ectopic Surgery/Procedure Performed: laparoscopic left salpingectomy colorer: Yes Glost Kiln Placer: Gloria Shrestha Tasks completed by executive staff assistant: Opening closing, Altering tissue and Insert Trochanter Additional respiratory care assistant?: No Type of Anesthesia: General RN [...] MD; No Primary Care Physician Signed Normal [facility] Platelet countOrdered By: Richardson Rapp on 01-12-2025 Platelets (Bld) [#/Vol] 242 10*3/uL Normal 150-450 [facility] Comment on above: Performed By: #### L 500.2500, B882-1, L100.0100, BtABORH, L700.8000 #### [facility] Laboratory [address] [place], [address] Potassium (Unsp spec) [Mass/ Vol]Ordered By: Ray Rapp on 01-12-2025 Potassium [Moles/Vol] 3.4 mmol/L 3.3-5.1 [facility] Protein Test strip Ql (U)Ord ered By: Ray Rapp on 01-12-2025 Protein Ql (U) 15 mg/dl High Negative [facility] Serum creatinine measurement (mass/volume)Ordered By: Ray Rapp on 01-12-2025 Creatinine [Mass/Vol] 0.72 mg/dL 0.70-1.20 [facility] Serum glucose measurement (m ass/volume)Ordered By: Ray Rapp on 01-12-2025 Glucose [Mass/Vol] 90 mg/dL 70-99 [facility] Serum or plasma calcium eliana urement (mass/volume)Ordered By: Ray Rapp on 01-12-2025 Calcium [Mass/Vol] 9.1 mg/dL 7.6-11.0 [facility] Serum or plasma urea nitroge n measurement (mass/volume)Ordered By: Ray Rapp on 01-12-2025 Urea nitrogen [Mass/Vol] 9 mg/dL 4- [facility] Sodium levelOrdered By: Ray Rapp on 01-12-2025 Sodium [Moles/Vol] 136 mmol/L 133-145 [facility] Transvaginal w/Preg USon Transvaginal w/Preg US [facility] [address] [place], [place] [address] Transvaginal w/Preg US MR#: [id number] Acct: [id number] Name: YESSICA SOLORZANO Rep #: [id number] : 2000 24 From: Nelson Batista MD PCP: Care Physician,No Primary Status: REG ER Study: Transvaginal w/Preg US Date of Exam: 01/12/25 Exam# [id number] Ordering Dr: Ray Rapp DO PROCEDURE: TRANSVAGINAL [...] notified on 01/12/2025 at 21:00 Reading Location: [id number] CC: Dr. Ray Rapp, DO; No Primary Care Physician Data Librarian: Signed Normal [facility] Urinalysis, Completeon 01-12 EPI,SQUAMOUS 0-5 SEEN Normal 5-10 [facility] Comment on above: Order Comment: CLEAN CATCH Performed By: #### L 400.0001 #### [facility] Laboratory [address] [place], [address] RBC 0-5 SEEN Normal 0-5 [facility] Comment on above: Order Comment: CLEAN CATCH Performed By: #### L 400.0001 #### [facility] Laboratory [address] [place], [address] BACTERIA 0 SEEN Normal None Seen [facility] Comment on above: Order Comment: CLEAN CATCH Performed By: #### L 400.0001 #### [facility] Laboratory [address] [place], [address] Mucus Ql (Urine sed) 0 SEEN Normal [facility] Comment on above: Order Comment: CLEAN CATCH Performed By: #### L 400.0001 #### [facility] Laboratory [address] [place], [address] WBC 0 SEEN Normal 0-5 [facility] Comment on above: Order Comment: CLEAN CATCH Performed By: #### L 400.0001 #### [facility] Laboratory [address] [place], [address] Urine blood detectionOrdered By: Ray Rapp on 01-12-2025 Urine Occult Blood 250 /ul High Negative [facility] Urine clarityOrdered By: Chelsey Rapp on 01-12-2025 Clarity (U) Clear Clear [facility] Urine color determinationOrd ered By: Ray Rapp on 01-12-2025 Color (U) Straw Yellow [facility] Urine leukocyte esterase det ection by dipstickOrdered By: Ray Rapp on 01-12-2025 Leukocyte esterase Test strip Ql (U) Negative Negative [facility] Urine pHOrdered By: Ray betancourt on 01-12-2025 pH (U) 6.5 [pH] 5.0 - 8.0 [facility] Urine sediment bacteria coun t by microscopy (number/high power field)Ordered By: Ray Rapp on 01-12-2025 Bacteria LM.HPF (Urine sed) [#/Area] 0 /[HPF] None Seen [facility] Urine specific gravity measu rementOrdered By: Ray Rapp on 01-12-2025 Specific gravity (U) [Rel density] 1.010 1.002-1.030 [facility] Urobilinogen Ql (U)Ordered B y: Ray Rapp on 01-12-2025 Urine Urobilinogen Normal mg/dl Normal [facility] White blood cell (WBC) count Ordered By: Ray Rapp on 01-12-2025 WBC (Bld) [#/Vol] 9.3 10*3/uL Normal 4.4-11.0 [facility] Comment on above: Performed By: #### L 500.2500, B882-1, L100.0100, BtABORH, L700.8000 #### [facility] [address] [place], [place], [address] White blood cell countOrdere d By: Ray Rapp on 01-12-2025 Urine WBC 0 SEEN /hpf 0-5 [facility] hCG Titer Quant., Serumon HCG QUANT. 3703 mIU/mL High <9 non-preg [facility] Comment on above: Result Comment: Gest ational Age 0.2-1 Week: 5-50 mIU/mL 1-2 Weeks: 50-500 mIU/mL 2-3 Weeks: 100-5000 mIU/mL 3-4 Weeks: 500-10,000 mIU/mL 4-5 Weeks:1000-50,000 mIU/mL 5-6 Weeks: 10,000-100,000 mIU/mL 6-8 Weeks: 15,000-200,000 mIU/mL 2-3 Months:10,000-100,000 mIU/mL Performed By: #### L 700.8000 #### [facility] [place], [address] Vital Signs Date Time Vital Sign Value Performing Clinician Silvino tobias 07-03-2025 14:58-0400 Body height 157.48 cm No Primary Care Physician [facility] 07-03-2025 14:58-0400 Body mass index (BMI) [Ratio] 22 kg/m2 No Primary Care Physician [facility] 07-03-2025 14:58-0400 Body weight 54.6 kg No Primary Care Physician [facility] 07-03-2025 14:58-0400 Diastolic blood pressure 92 mm[Hg] No Primary Care Physician [facility] 07-03-2025 14:58-0400 Systolic blood pressure 137 mm[Hg] No Primary Care Physician [facility] 06-13-2025 21:09-0400 Body temperature 97.8 [degF] No Primary Care Physician [facility] 06-13-2025 21:09-0400 Diastolic blood pressure 60 mm[Hg] No Primary Care Physician [facility] 06-13-2025 21:09-0400 Heart rate 95 /min No Primary Care Physician [facility] 06-13-2025 21:09-0400 Respiratory rate 16 /min No Primary Care Physician [facility] 06-13-2025 21:09-0400 SaO2% (BldA) [Mass fraction] 100 % No Primary Care Physician [facility] 06-13-2025 21:09-0400 Systolic blood pressure 112 mm[Hg] No Primary Care Physician [facility] 06-13-2025 17:26-0400 Body height 157.48 cm No Primary Care Physician [facility] 06-13-2025 17:26-0400 Body mass index (BMI) [Ratio] 22 kg/m2 No Primary Care Physician [facility] 06-13-2025 17:26-0400 Body weight 54.7 kg No Primary Care Physician [facility] 01-13-2025 01:55-0400 Body temperature 97.8 [degF] Dr. Ray Rapp DO Work Phone: [facility] 01-13-2025 01:55-0400 Diastolic blood pressure 84 mm[Hg] Dr. Ray Rapp DO Work Phone: 5(982)121-312194 [place] [address] 01-13-2025 01:55-0400 Heart rate 82 /min Dr. Ray Rapp DO Work Phone: 0(995)159-448294 [place] [address] 01-13-2025 01:55-0400 Respiratory rate 16 /min Dr. Ray Rapp DO Work Phone: 4(694)129-198094 [place] [address] 01-13-2025 01:55-0400 SaO2% (BldA) [Mass fraction] 100 % Dr. Ray Rapp DO Work Phone: 2(469)010-786794 [place] [address] 01-13-2025 01:55-0400 Systolic blood pressure 125 mm[Hg] Dr. Ray Rapp DO Work Phone: 7(428)858-962194 [place] [address] 01-12-2025 23:01-0400 Body temperature 98.7 [degF] Dr. Ray Rapp DO Work Phone: 3(813)985-622694 [place] [address] 01-12-2025 23:01-0400 Diastolic blood pressure 85 mm[Hg] Dr. Ray Rapp DO Work Phone: 3(158)278-543694 [place] [address] 01-12-2025 23:01-0400 Heart rate 110 /min Dr. Ray Rapp DO Work Phone: 4(819)566-958194 [place] [address] 01-12-2025 23:01-0400 Respiratory rate 18 /min Dr. Ray Rapp DO Work Phone: 2(171)284-166494 [place] [address] 01-12-2025 23:01-0400 SaO2% (BldA) [Mass fraction] 100 % Dr. Ray Rapp DO Work Phone: 4(386)358-864494 [place] [address] 01-12-2025 23:01-0400 Systolic blood pressure 127 mm[Hg] Dr. Ray Rapp DO Work Phone: 5(377)116-639694 [place] [address] 01-12-2025 22:56-0400 Body height 160.[address] Ray Rapp DO Work Phone: 1(728)938-233294 [place] [address] 01-12-2025 22:56-0400 Body mass index (BMI) [Ratio] 22 kg/m2 Dr. Ray Rapp DO Work Phone: [facility] 01-12-2025 22:56-0400 Body weight 56.[address] Ray Rapp DO Work Phone: [facility] Encounters Encounter Date Encounter Type Care Provider Facility Start: 07-24-2025 End: 07-24-2025 ambulatory Kathleen Bryant Facility:[facility] Start: 07-03-2025 End: 07-03-[address] Page Goldstein MD -[facility] Work Phone: Start: 07-03-2025 End: 07-03-2025 ambulatory No Primary Care Physician -[facility] Start: 06-30-2025 Patient encounter procedure Kathleen Bryant CNM -Lab [facility] Start: 06-30-2025 End: 06-30-2025 ambulatory Kathleen Bryant Facility:[facility] Start: 06-26-2025 End: 06-26-2025 ambulatory No Primary Care Physician -Lab [facility] Start: 06-26-2025 End: 06-26-2025 Patient encounter procedure Kathleen Bryant CNM -Lab [facility] Start: 06-26-2025 End: 06-26-2025 ambulatory No Primary Care Physician Facility:[facility] Start: 06-24-2025 Encounter for genera l adult medical examination without abnormal findings Page Goldstein [facility] Start: 06-24-2025 End: 06-24-2025 ambulatory No Primary Care Physician -Lab [facility] Start: 06-24-2025 End: 06-24-[address] Page Goldstein MD -Lab [facility] Start: 06-24-2025 End: 06-24-2025 ambulatory No Primary Care Physician Facility:[facility] Start: 06-19-2025 End: 06-19-2025 ambulatory No Primary Care Physician -Ultrasound [facility] Start: 06-19-2025 End: 06-19-[address] Page Goldstein MD -Ultrasound [facility] Work Phone: Start: 06-19-2025 End: 06-19-2025 ambulatory No Primary Care Physician Facility:[facility] Start: 06-13-2025 End: 06-13-2025 Emergency department patient visit No Primary Care Physician -Emergency Department Work Phone: Start: 06-11-2025 End: 06-11-2025 ambulatory No Primary Care Physician -Laboratory Start: 06-11-2025 End: 06-11-[address] Page Goldstein MD -Laboratory Specimen Work Phone: Start: 06-11-2025 End: 06-11-2025 ambulatory Page Goldstein Facility:[facility] Start: 06-09-2025 End: 06-09-2025 ambulatory No Primary Care Physician -Laboratory Start: 06-09-2025 End: 06-09-[address] Page Goldstein MD -Laboratory Work Phone: Start: 06-09-2025 End: 06-09-2025 ambulatory Page Goldstein Facility:[facility] Start: 01-28-2025 End: 01-28-2025 ambulatory Page Goldstein Facility:[facility] Start: 01-12-2025 Non-patient / Non-visit Dr. Wilian Goldstein MD -[facility] Start: 01-12-2025 End: 01-13-2025 Admission to same day surgery center Dr. Page Goldstein MD -[facility] Start: 01-12-2025 End: 01-13-[address] Ray Rapp DO Work Phone: [facility] Work Phone: Start: 01-12-2025 End: 01-12-2025 Patient encounter procedure Nette Miller APRN.REPORTING CONSULTANT Work Phone: [facility] Comment on above: Vaginal bleeding in patient at less than 20 weeks gestation (HCC) (Primary Dx) Procedures Date Procedure Procedure Detail Performing Clinician Start: 06-19-2025 Transvaginal obstetr ic ultrasonography No Primary Care Physician Start: 06-13-2025 Urnls dip stick/tabl et reagent [...] Treatment Date Care Activity Detail Author Start: 06-30-2025 Patient encounter procedure Registered Clinical -Lab [facility] Start: 06-26-2025 Patient encounter procedure Registered Clinical -Lab [facility] Start: 06-24-2025 End: 06-24-2025 Patient encounter procedure Departed Clinical -Lab [facility] Start: 06-13-2025 [facility] Start: 01-13-2025 Medical regimen orders management [facility] Start: 01-13-2025 Patient discharge [facility] Start: 01-12-2025 Hospital admission, emergency, from emergency room, medical nature [facility] Start: 06-01-2024 Covid-19 Vaccine ( season) Covid-19 Vaccine ( season) [facility] Start: 06-01-2024 Influenza vaccination Influenza Vaccine (#1) [facility] Start: 2020 Screening for malignant neoplasm of cervix Cervical Cancer Screening [facility] Start: 2018 Hepatitis B Vaccine (1 of 3 - 19+ 3-dose series) Hepatitis B Vaccine (1 of 3 - 19+ 3-dose series) [facility] Start: 2018 Urine microalbumin profile DTaP,Tdap,Td Vaccine (1 - Tdap) [facility] Start: 2017 Anxiety Screening Anxiety Screening [facility] Start: 2017 Depression Screening Depression Screening [facility] Start: 2017 Hepatitis C screening Hepatitis C Screening [facility] Start: 2017 HIV screening HIV Screening [facility] Start: 2014 HPV Vaccine (1 - 3-dose series) HPV Vaccine (1 - 3-dose series) [facility] Start: 2013 Peds To Adult Transition Annual Assessment Peds To Adult Transition Annual Assessment [facility] Start: 2011 Peds To Adult Transition Initial Discussion Peds To Adult Transition Initial Discussion [facility] Patient Education ED Abdominal P ain, Early [facility] Work Phone: Patient referral [facility] Work Phone: Payers Date Payer Category Payer Private Health Insurance [id number] 2025 Self-pay 2024 Private Health Insurance [id number] 2024 Private Health Insurance [id number] Unknown [id number] 462 Unknown [id number] [id number]. 462 Unknown [id number]. 462 Unknown [id number] 2.16.840.1.856675.3.579.2. 462 Unknown [id number] 2.16.840.1.714787.3.579.2. 462 Unknown [id number] 2.16.840.1.983119.3.579.2. 462 Unknown [id number] 2.16.840.1.698434.3.579.2. 462 Unknown [id number] 2.16.840.1.830824.3.579.2. 462 Unknown [id number] 2.16.840.1.137658.3.579.2. 462 Unknown [id number] 2.16.840.1.817794.3.579.2. 462 Unknown [id number] 2.16.840.1.695876.3.579.2. 462 Unknown [id number] 2.16.840.1.281120.3.579.2. 462 Unknown [id number] 2.16.840.1.192138.3.579.2. 462 Unknown [id number] [id number]. 462 Social History Date Type Detail Facility Start: 01-12-2025 End: 06-13-2025 Tobacco smoking status NHIS Never smoked tobacco (finding) [facility] Start: 01-12-2025 End: 01-13-2025 Sex Female (finding) [facility] Start: 2000 Sex Assigned At Female [facility] Tobacco smoking status NMIS Tobacco smoking consumption unknown [facility] Start: 2000 Sex assigned at Not on file [facility] Gender identity Not on file [facility] NEGATED: Highlighted row Not [facility] Mental Status Date Assessment Result Facility 01-13-2025 Cognitive function Voice/Name [facility] Work Phone: Clinical Notes 2024 to 06-19-2025 Note Date & Type Note Facility 06-19-2025 Radiology Diagnostic study note [facility] Imaging Services [address], [place] [address] Transvaginal w/Preg US MR#: [id number] Acct: [id number] Name: YESSICA SOLORZANO Rep #: [id number] : 2000 F 24 From: Sal Morrow MD PCP: Care Physician,No Primary Status: REG CLI Study:Transvaginal w/Preg US Date of Exam: 06/19/25 Exam# [id number] Ordering Dr: Page Hinkle MD PROCEDURE: TRANSVAGINAL W/PREG US 06/19/2025 REASON FOR EXAM: F/U ER IMAGING, EARLY TECHNIQUE: Procedure Code: USTVAGP Modality: US Procedure: TRANSVAGINAL W/PREG US COMPARISON: Prior study dated June 13, 2025. FINDINGS: Comments: LMP: May 09, 2025. Number of Gestational Sacs: 1 Gestational Sac Shape: Normal Number of Fetuses: 1 Heart Rate: 106 beats per minute (average) Yolk Sac: Present and unremarkable. Placenta: Presently not well-visualized Uterine Abnormalities: Maternal uterus is unremarkable. Ovaries / Adnexa: There is a septated cyst in the right ovary measuring 4.4 cm 4.4 cm x 3.7 cm. There is a 1 cm x 0.7 cm 0.8 cm corpus luteum cyst in the left ovary. DIMENSIONS: Parameter Measurement / EGA [place] Rump Length: 2 mm/6 weeks and 0 days Gestational Sac: 7 mm/5 weeks and 3 days Yolk Sac: 3 mm/ ESTIMATED GESTATIONAL AGE: By Ultrasound: 5 weeks and 5 days By LMP: 5 weeks and 6 days ESTIMATED DATE OF DELIVERY: By Ultrasound: February 14, 2026 By LMP: February 13, 2026 US/Transvaginal w/Preg US IMPRESSION: UNREMARKABLE FIRST TRIMESTER ULTRASOUND. 4.4 cm 4.4 cm 3.7 cm septated cyst in the right ovary. Reading Location: [place] [address] CC: Dr. Page Goldstein MD; No Primary Care Physician ~ Data Librarian: Signed [facility] 06-13-2025 Radiology Diagnostic study note [facility] Imaging Services [address] [place], [place] [address] Transvaginal w/Preg US MR#: [id number] Acct: [id number] Name: YESSICA SOLORZANO Rep #: [id number] : 2000 F 24 From: Mello Matthews MD PCP: Care Physician,No Primary Status: REG ER Study:Transvaginal w/Preg US Date of Exam: 06/13/25 Exam# [id number] Ordering Dr: Kvng East DO PROCEDURE: TRANSVAGINAL [...] beta HCG levels is recommended. [facility] CC: Dr. Ariel East DO; No Primary Care Physician ~ Data Librarian: Signed [facility] 01-13-2025 Consult note [facility] 01-13-2025 Consult note Note Date/Time January 13, 2025 2:00am [facility] Medical Records Department [address] [place] [address] Pre-Anesthesia Evaluation 01/12/25 0484 MR#: [id number] Acct: [id number] Name: JOSE GUADALUPEPavithraYESSICA BRADLEY Rep #:[id number] : 2000 24 From: Ravinder Garcia MD PCP: Care Physician,No Primary Status :[facility] Y Race: C Location: [facility] ASA Classification* ASA Classification ASA Classification: 2 [...] remove ectopic Anesthesia History 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 Hx Hypertension No 01/12/25 22:56 Hx Sleep [...] Tobacco Use History 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 Specify any problems Hx of Preganancy in last 3 Months Nurse Filling Out Transfusion & Questions: Date: Time: Patient unable to answer at this time (ie. confused, unrespo /Reproduction History /Reproductive History - vault worker: /Reproductive Hx- vault worker Hx Now No 01/12/25 22:56 Gestational Age [...] no additional complaints, except as documented. 01/12/25 5193 <Electronically signed by Ravinder Garcia MD > Date _ Ravinder Garcia MD Cosigner Signature: Date CC: ~ Signed [facility] Work Phone: 1(333) 918-995404-15-2025 Discharge summary Author Ray Rapp [facility] Note Date/Time January 12, 2025 11: 42pm [facility] Medical Records Department [address] [place] [address] Emergency Department Summary 01/12/25 MR#: [id number] Acct: [id number] Name: YESSICA SOLORZANO Rep #:[id number] : 2000 From: Ray Mcelroy PCP: Care Physician,No Primary Status :REG [facility] Location: [facility] HPI HPI - Female History [...] but has not followed up with any TOBACCO BLENDER yet. Patient states this is her first [...] % (Auto) 61.7 Lymph % (Auto) 28.5 [place] % (Auto) 7.6 Eos % (Auto) 1.0 [...] Clarity Clear Urine pH 6.5 Ur Specific Duncan 1.010 Urine Protein 15 H Urine Glucose [...] notified on 01/12/2025 at 21:00 Reading Location: [facility] Pelvic ultrasound was obtained. There is no [...] Care Physician,No Primary Disposition Disposition: Acute Care [facility] What to do if you have Problems For any increased pain, shortness of breath, bleeding, nausea or vomiting, chestpain, or any unexpected problems, contact your Primary Care Provider. Call [facility] ([phone]) or report to the closest Emergency Room. Call 911 if necessary. 01/12/25 2342 <Electronically signed by Ray Rapp DO> Cosigner Signature (if applicable): CC: No Primary Care Physician ~ Signed [facility] Work Phone: 1(180) 300-987004-15-2025 Discharge summary Author Page Goldstein [facility] Note Date/Time January 13, 2025 12: 36am [facility] Medical Records Department [address] [place] [address] Instructions for Home/Discharge Instructions 01/12/25 2321 MR#: [id number] Acct: [id number] Name: YESSICA SOLORZANO Rep #:[id number] : 2000 From: Page choi MD PCP: [...] Provider: Care Physician,No Primary Instructions Print Language: Kinyarwanda Discharge Orders/Prescriptions Prescriptions: New oxycodone-acetaminophen [Percocet] 5-325 mg tablet 1 tab PO Q4H PRN (Reason: pain) 7 Days Qty: 20 0RF Referrals / Follow Up: Care Physician,No Primary [Primary Care Provider] - Disposition Disposition (needs filled in before D/C Order can be placed): Home, Self Care 01/13/25 0036<Electronically signed by Page oGldstein MD>Page Goldstein MD CC: No Primary Care Physician ~ Signed [facility] Work Phone: 1(666) 456-295004-15-2025 History and physical note Author Page Goldstein [facility] Note Date/Time January 12, 2025 11: 20pm [facility] Medical Records Department [address] [place] [address] H&P Exam - TOBACCO BLENDER 01/12/25 2314 MR#: [id number] Acct: [id number] Name: YESSICA SOLORZANO Rep #:[id number] : 2000 From: Page choi MD PCP: Care Physician,No Primary Status :REG [facility] Location: [facility] HPI - General HPI Narrative YESSICA SOLORZANO, [...] Goldstein MD; No Primary Care Physician~ Signed [facility] Work Phone: 1(805) 325-856104-15-2025 Consult note [facility] Medical Records Department [address] [place] [address] Anesthesia Postop Eval I 01/13/2552 MR#: [id number] Acct: [id number] Name: YESSICA SOLORZANO Rep #:[id number] : 2000 From: Ravinder Garcia MD PCP: Care Physician,No Primary Status :[facility] Y Race: C Location: [facility] Anesthesia: Postop Eval I Current Vital Signs [...] MD Cosigner Signature: Date CC: ~ Signed [facility]04-15-2025 Evaluation note* Diagnosis Onset Date Resolution Status Admit Date Ectopic acute December 302024 10:42pm Pelvic pain acute January 12, 025 10:42pm [facility] Work Phone: 1(493) 293-640004-15-2025 Discharge summary [facility] Medical Records Department [address] [place] [address] Instructions for Home/Discharge Instructions 01/12/25 2321 MR#: [id number] Acct: [id number] Name: YESSICA SOLORZANO Rep #:[id number] : 2000 From: Page choi MD PCP: [...] Provider: Care Physician,No Primary Instructions Print Language: Kinyarwanda Discharge Orders/Prescriptions Prescriptions: New oxycodone-acetaminophen [Percocet] 5-325 mg tablet 1 tab PO Q4H PRN (Reason: pain) 7 Days Qty: 20 0RF Referrals / Follow Up: Care Physician,No Primary [Primary Care Provider] - Disposition Disposition (needs filled in before D/C Order can be placed): Home, Self Care 01/13/25 0036Page Goldstein MD CC: No Primary Care Physician ~ Signed [facility]04-15-2025 Procedure note [facility] Medical Records Department [address] [place] [address] Operative Report 01/12/25 2320 MR#: [id number] Acct: [id number] Name: YESSICA SOLORZANO Rep #:[id number] : 2000 From: Page choi MD PCP: Care Physician,No Primary Status :REG [facility] Location: [facility] Problems Associated Problem List Diagnoses (1) Ectopic : Procedures Urinary/Genital 52xxx-59xxx: 70803 Treat ectopic lapro w/ salpingectomy Operative Report (Standard) Operative Information Date of Procedure: 01/12/25 Pre-Operative Diagnosis: see problem list Post-Operative Diagnosis: same ruptured left ectopic Surgery/Procedure Performed: laparoscopic left salpingectomy colorer: Yes Glost Kiln Placer: Gloria Shrestha Tasks completed by executive staff assistant: Opening & closing, Altering tissue and Insert Trochanter Additional respiratory care assistant?: No Type of Anesthesia: General RN [...] Goldstein MD; No Primary Care Physician~ Signed [facility]04-14-2025 Discharge summary [facility] Medical Records Department [address] [place] [address] Emergency Department Summary 01/12/25 MR#: [id number] Acct: [id number] Name: YESSICA SOLORZANO Rep #:[id number] : 2000 24 From: Ray Mcelroy PCP: Care Physician,No Primary Status :[facility] Location: [facility] HPI HPI - Female History [...] but has not followed up with any TOBACCO BLENDER yet. Patient states this is her first [...] % (Auto) 61.7 Lymph % (Auto) 28.5 [place] % (Auto) 7.6 Eos % (Auto) 1.0 [...] Clarity Clear Urine pH 6.5 Ur Specific Duncan 1.010 Urine Protein 15 H Urine Glucose [...] notified on 01/12/2025 at 21:00 Reading Location: [facility] Pelvic ultrasound was obtained. There is no [...] She was in to evaluate the patient. Yoselinwiandrew take the patient to the operating room for ectopic . Patient understands and is agreeable with the plan. All questions were answered. Discharge Plan Triage Chief Complaint: Vag Bld, Preg ED Provider: Ray Rapp Dx/Rx/DC Orders Clinical Impression: Ectopic , Pelvic pain Primary Care Provider: Care Physician,No Primary Disposition Disposition: Acute Care [facility] What to do if you have Problems For any increased pain, shortness of breath, bleeding, nausea or vomiting, chestpain, or any unexpected problems, contact your Primary Care Provider. Call [facility] ([phone]) or report tothe closest Emergency Room. Call 911 if necessary. 01/12/25 0602 Cosigner Signature (if applicable): CC: No Primary Care Physician ~ Signed [facility]04-14-2025 History and physical note [facility] Medical Records Department [address] [place] [address] H&P Exam - TOBACCO BLENDER 01/12/25 2314 MR#: [id number] Acct: [id number] Name: YESSICA SOLORZANO Rep #:[id number] : 2000 24 From: Page choi MD PCP: Care Physician,No Primary Status :[facility] Location: [facility] [place] HPI - General HPI Narrative YESSICA SOLORZANO, [...] given for additional information regarding procedure. 01/12/25 0000 Cosigner Signature (if applicable): CC: Dr. Page Goldstein MD; No Primary Care Physician~ Signed [facility]04-14-2025 Radiology Diagnostic study note [facility] Imaging Services [address] [place] [address] Transvaginal w/Preg US MR#: [id number] Acct: [id number] Name: YESSICA SOLORZANO Yomaira Rep #: [id number] : 2000 F 24 From: Nimesh Batista MD PCP: Care Physician,No Primary Status: REG ER Study:Transvaginal w/Preg US Date of Exam: 01/12/25 Exam# [id number] Ordering Dr: Ray Rapp DO PROCEDURE: TRANSVAGINAL [...] notified on 01/12/2025 at 21:00 Reading Location: [facility] CC: Dr. Ray Rapp DO; No Primary Care Physician ~ Data Librarian: Signed [facility]04-14-2025 NoteHNO ID: [id number] Author: NETTE MILLER APRN.REPORTING CONSULTANT Service: ? Author Type: Nurse Practitioner Type: Progress Notes Filed: 01/12/2025 17:16 Note Text: Called to triage patient by PSS staff 24 year old female who is 5 weeks Has been complaining of vaginal bleeding, x 2 weeks Today she developed pelvic pain and cramping I need to make sure that I don't have an ectopic Discussed limitations of express care, Referred to [facility]04-14-2025 History of Present illness Narrative* Nette Miller APRN.REPORTING CONSULTANT - 01/12/2025 5:14 PM EDT Called to triage patient by PSS staff 24 year old female who is 5 weeks Has been complaining of vaginal bleeding, x 2 weeks Today she developed pelvic pain and cramping I need to make sure that I don't have an ectopic Discussed limitations of express care, Referred to [facility]24 Consult note Author Ravinder Garcia [facility] Note Date/Time January 13, 2025 12: 54am [facility] Medical Records Department [address] [place] [address] Anesthesia Postop Eval I 01/13/2552 MR#: [id number] Acct: [id number] Name: YESSICA SOLORZANO Rep #:[id number] : 2000 24 From: Ravinder Garcia MD PCP: Care Physician,No Primary Status :[facility] Y Race: C Location: [facility] [place] Anesthesia: Postop Eval I Current Vital Signs [...] MD > Date _ Ravinder Garcia [facility]: Date CC: ~ Signed [facility] Work Phone: 1(825) 826-668012-07-2024 Consult note Author [facility]inder [facility] Note Date/Time January 13, 2025 2:0 0am [facility] Medical Records Department [address] [place] [address] Anesthesia Postop Eval II 01/13/2554 MR#: [id number] Acct: [id number] Name: YESSICA SOLORZANO Rep #:[id number] : 2000 From: Ravinder Garcia MD PCP: Care Physician,No Primary Status :REG [facility] [place] Y Race: C Location: [facility] [place] Anesthesia Postop Eval I Sum Postop Eval [...] MD Cosigner Signature: Date CC: ~ Signed [facility] Work Phone: Consult note [facility] Medical Records Department [address] [place] [address] Anesthesia Postop Eval II 01/13/2554 MR#: [id number] Acct: [id number] Name: YESSICA SOLORZANO Rep #:[id number] : 2000 From: Ravinder Garcia MD PCP: Care Physician,No Primary Status :REG [facility] [place] Y Race: C Location: [facility] [place] Anesthesia Postop Eval I Sum Postop Eval [...] Level: 1 nausea: No Vomiting: No 01/13/2554 > Date _ Ravinder Garcia MD Cosigner Signature: Date CC: ~ [facility]igned [facility] Diagnosis Onset Date Resolution Status Admit Date Ectopic acute December 302024 10:42pm Pelvic pain acute January 12, 2 025 10:42pm [facility] Work Phone: Evaluation note* Diagnosis Vaginal bleeding in patient at less than 20 weeks gestation (HCC)- Primary documented in this encounter [facility] noteNo assessment information availableWCincinnati [facility] Work Phone: History and physical note Author Page Goldstein [facility] Note Date/Time January 12, 2025 11: 20pm [facility] Medical Records Department [address] [place] [address] H&P Exam - TOBACCO BLENDER 01/12/25 2314 MR#: [id number] Acct: [id number] Name: YESSICA SOLORZANO Rep #:[id number] : 2000 24 From: Page choi MD PCP: Care Physician,No Primary Status :REG [facility] [place] Location: [facility] [place] HPI - General HPI Narrative YESSICA SOLORZANO, [...] Goldstein MD; No Primary Care Physician~ Signed [facility] Work Phone: Hospital Discharge instructionsAdditional Instructions Thank [...] of any tissue. Please follow with your TOBACCO BLENDER (Dr. Goldstein) for further outpatient evaluation and management. She recommended you get a repeat ultrasound in 7 to 10 days. She recommended you call her office on Sunday to schedule this appointment.[facility] Work Phone: Reason for referral (narrative)No reason for referral information availableWooC[facility] Work Phone: Chief Complaint and Reason [...] 6:52pm ABDOMINAL PAIN June 13, 2025 5:25pm Chief Complaint Admit Date E-ORDER June 09, 2025 6:58pm at early stage June 11, 2025 6:52pm ABDOMINAL PAIN June 13, 2025 5:25pm f/u ER imaging, early Junbryce r 2024 7:18am Chief Complaint Admit Date E-ORDER June 09, 2025 6:58pm at early stage June 11, 2025 6:52pm ABDOMINAL PAIN June 13, 2025 5:25pm f/u ER imaging, early Junbryce r 2024 7:18am Miscarriage F/U per KW July 03, 2025 2:47pm Advance Directives No Advanced Directives Records Found Advance Directive Response Recorded Date/ Time Living Will No January 12, 2025 8:07pm Do you have a Healthcare Power of Poultry Inseminator? No January 12, 2025 8:07pm Advance Directive Response Recorded Date/ Time Do you have a Healthcare Power of Poultry Inseminator? No June 13, 2025 6:08pm Summary Purpose [...] June 13, 2025 End: June 13, 2025 Team Status: Active Member Role/Relationship Status Dates No Primary Care Physician Primary care physician Activ e Team Status: Inactive Member Role/Relationship Status Dates No Primary Care Physician Primary care physician Activ e Start: June 09, 2025 End: June 09, 2025 Dr. Page Goldstein MD Attending physician Active Start: June 09, 2025 End: June 09, 2025 Dr. Page Goldstein MD Referring Provider Active Start: June 09, 2025 End: June 09, 2025 Team Status: Inactive Member Role/Relationship Status Dates Dr. Page Goldstein MD Attending physician Active Start: June 11, 2025 End: June 11, 2025 No Primary Care Physician Primary care physician Activ e Start: June 11, 2025 End: June 11, 2025 Team Status: Inactive Member Role/Relationship Status Dates No Primary Care Physician Primary care physician Activ e Start: June 11, 2025 End: June 11, 2025 Dr. Page Goldstein MD Attending physician Active Start: June 11, 2025 End: June 11, 2025 Team Status: Inactive Member Role/Relationship Status Dates No Primary Care Physician Primary care physician Activ e Start: June 13, 2025 End: June 13, 2025 Dr. Ariel East DO Attending physician Active Start: June 13, 2025 End: June 13, 2025 Dr. Ariel East DO Emergency Depart ent Physician Active Start: June 13, 2025 End: June 13, 2025 Team Status: Inactive Member Role/Relationship Status Dates No Primary Care Physician Primary care physician Activ e Start: June 19, 2025 End: June 19, 2025 Dr. Page Goldstein MD Attending physician Active Start: June 19, 2025 End: June 19, 2025 Dr. Page Goldstein MD Referring Provider Active Start: June 19, 2025 End: June 19, 2025 Team Status: Inactive Member Role/Relationship Status Dates No Primary Care Physician Primary care physician Activ e Start: June 24, 2025 End: June 24, 2025 Dr. Page Goldstein MD Attending physician Active Start: June 24, 2025 End: June 24, 2025 Team Status: Active Member Role/Relationship Status Dates No Primary Care Physician Primary care physician Activ e Start: June 26, 2025 Kathleen Bryant CNM Attending physician Active Start: June 26, 2025 Team Status: Active Member Role/Relationship Status Dates No Primary Care Physician Primary care physician Activ e Start: June 30, 2025 Kathleen Bryant CNM Attending physician Active Start: June 30, 2025 Team Status: Inactive Member Role/Relationship Status Dates No Primary Care Physician Primary care physician Activ e Start: June 26, 2025 End: June 26, 2025 Kathleen Bryant CNM Attending physician Active Start: June 26, 2025 End: June 26, 2025 Team Status: Inactive Member Role/Relationship Status Dates No Primary Care Physician Primary care physician Activ e Start: July 03, 2025 End: July 03, 2025 No Primary Care Physician Referring Provider Active Start: July 03, 2025 End: July 03, 2025 Dr. Page Goldstein MD Attending physician Active Start: July 03, 2025 End: July 03, 2025 Goals (unrecognized section and content) Goals [...] this informatio n is protected by the [facility] Confidentiality of Alcohol and Drug Abuse Patient Records regulations: The Federal rules restrict any use of the information to criminally investigate or prosecute any alcohol or drug abuse patient.[facility] INFORMATION SOURCE (unrecogn ized section and content) DATE CREATED AUTHOR 01/14/2025 [facility] DATE CREATED AUTHOR 'S ROSARIO LACY 07/26/2025 [facility] FOR RECORDS PERTAINING TO PATIENTS WHO [...] BE BASED ON THE PRIMARY CLINICAL RECORDS. [employer] provides no warranty or guarantee of the accuracy or completeness of information in this document.
[2025-07-26 11:30] LABS: hCG Titer Quant., Serum 1150 mIU/mL (<9 non-preg)
== END | disposition home or self-care (01) ==
LOC: LAB 10:32
PROVIDERS: Visit Provider Advanced Practice Midwife
DX: O26.859 Spotting complicating pregnancy, unspecified trimester (principal); Z3A.00 Weeks of gestation of pregnancy not specified
CPT/HCPCS: 36415; 84702

== ENCOUNTER → 2025-07-30 | Outpatient (CLI) | payer MEDICAID, SELFPAY ==
--- NOTE | 2025-07-30 07:15 | US_ITS ---
PROCEDURE: US/Transvaginal w/Preg US
== END | disposition home or self-care (01) ==
PROVIDERS: Referring Provider Advanced Practice Midwife; Visit Provider Advanced Practice Midwife
DX: O26.859 Spotting complicating pregnancy, unspecified trimester (principal); Z3A.00 Weeks of gestation of pregnancy not specified
CPT/HCPCS: 76817

== ENCOUNTER → 2025-08-17 | Outpatient (CLI) | payer MEDICAID, SELFPAY ==
[2025-08-17 16:37] LABS: Hematocrit 38.2 % (37-47); Hemoglobin 13.5 g/dL (12.0-15.0); Immature Granulocytes Count 0.030 X10^3/uL (0.0-0.0); Mean Corp Hgb Conc 35.3 g/dL (32-36); Mean Corpuscular Volume 89.7 fL (81-99); Mean Platelet Vol. 9.6 fl (6.2-12.0); NRBC Flagged by Analyzer 0 % (0-5); Platelet Count 263 K/mm3 (150-450); RBC Distribution Width CV 11.5 % (11.6-14.6); RBC Distribution Width SD 37.2 fl (35.1-43.9); Red Blood Count 4.26 M/mm3 (4.2-5.4); White Blood Count 7.9 K/mm3 (4.4-11.0)
[2025-08-17 17:49] LABS: HIV Nonreactive (Nonreactive); Hepatitis B Surface Antigen Nonreactive (Nonreactive); Hepatitis C Antibody Nonreactive (Nonreactive); Syphilis Antibodies Nonreactive (Nonreactive)
[2025-08-19 22:07] LABS: Chlamydia By Nucleic Acid AMP Negative (Negative); Gonococcus By Nucleic Acid AMP Negative (Negative)
== END | disposition home or self-care (01) ==
PROVIDERS: Visit Provider Obstetrics & Gynecology
DX: O09.90 Supervision of high risk pregnancy, unspecified, unspecified trimester (principal); Z12.4 Encounter for screening for malignant neoplasm of cervix; Z3A.00 Weeks of gestation of pregnancy not specified
CPT/HCPCS: 36415; 85025; 86703; 86762; 86780; 86803; 86850; 86900; 86901; 87086; 87088; 87340; 87491; 87591; 88175; G0145